=== PATIENT | female | born 1950 | race Caucasian/White ===

== ENCOUNTER 2019-04-07 15:31 | Emergency (ER) | payer OTHER ==
--- OUTSIDE RECORDS SUMMARY | 2019-04-07 15:33 | XMS REPORT ---
:1950 Author Organization [facility] Address [address] [place] [address] [address] [place] [address] Care Team Providers Name Role Phone Unavailable Unavailable Unavailable Problems This patient has no known problems. Allergies, Adverse Reactions, Alerts This patient has no known allergies or adverse reactions. Medications This patient has no known medications.
[2019-04-07] MEDS ORDERED: NA CHLORIDE 0.9% 500 ML ONE (16:20)
[2019-04-07 16:41] LABS: Hematocrit 44.4 % (36.0-45.0); Lymphocytes % 17.3 % (15.3-44.8); MPV 8.3 fL (7.6-11.3); RBC Red Blood Cell Count 5.02 M/uL (3.86-4.86)
[2019-04-07 16:58] LABS: Albumin 3.4 g/dL (3.4-5.0); Bilirubin Direct 0.1 mg/dL (0-0.2); Bilirubin Total 0.4 mg/dL (0.2-1.0); Potassium 3.9 mmol/L (3.5-5.1); Protein, Total 7.2 g/dL (6.4-8.2)
[2019-04-07] MEDS ORDERED: FLEET ENEMA ADULT PR ONE (17:10)
[2019-04-07] MEDS ORDERED: MAGNESIUM CITRATE 300 ML BOT ONE (17:10)
--- NOTE | 2019-04-07 17:20 | ER ---
Nurse's Notes [facility] Name: Griselda Barksdale Age: 68 yrs Sex: Female : 1950 Arrival Date: 04/07/2019 Time: 15:32 Bed 25 Private MD: Diagnosis: Constipation Presentation: 04/07 15:35 Presenting complaint: Patient states: I feel very constipated, last BM was yesterday la1 and normal. Transition of care: patient was not received from another setting of care. Onset of symptoms was April 07, 2019. Risk Assessment: Do you want to hurt yourself or someone else? Patient reports no desire to harm self or others. Initial Sepsis Screen: Does the patient meet any 2 criteria? No. Patient's initial sepsis screen is negative. Does the patient have a suspected source of infection? No. Patient's initial sepsis screen is negative. Care prior to arrival: None. 15:35 Method Of Arrival: Ambulatory la1 15:35 Acuity: FILEMON 3 la1 Historical: - Allergies: 15:36 No Known Allergies; la1 - PMHx: 15:36 Hyperlipidemia; Hypertension; la1 - Immunization history:: Adult Immunizations up to date. - Social history:: Smoking status: Patient uses tobacco products, smokes one-half pack cigarettes per day. - Ebola Screening: : No symptoms or risks identified at this time. Screenin:50 Abuse screen: Denies threats or abuse. Denies injuries from another. Nutritional ca1 screening: No deficits noted. Tuberculosis screening: No symptoms or risk factors identified. Fall Risk IV access (20 points). Assessment: 15:50 General: Appears in no apparent distress. comfortable, Behavior is calm, cooperative, ca1 appropriate for age. Pain: Denies pain. Neuro: Level of Consciousness is awake, alert, obeys commands, Oriented to person, place, time, situation. Cardiovascular: Heart tones S1 S2 present Capillary refill < 3 seconds Patient's skin is warm and dry. Pulses are all present. Respiratory: Airway is patent Respiratory effort is even, unlabored, Respiratory pattern is regular, Breath sounds are clear bilaterally. GI: Abdomen is round non-distended, Bowel sounds present X 4 quads. Abd is soft and non tender X 4 quads. Reports constipation, since today. She reported a normal bowel movement yesterday feeling of discomfort at her anus, "like something is stuck in there", as stated by pt. : No deficits noted. No signs and/or symptoms were reported regarding the genitourinary system. EENT: No deficits noted. No signs and/or symptoms were reported regarding the EENT system. Derm: Skin is intact, is healthy with good turgor, Skin is pink, warm \\T\\ dry. Musculoskeletal: Circulation, motion, and sensation intact. Capillary refill < 3 seconds, Range of motion: intact in all extremities. 17:19 Reassessment: Patient appears in no apparent distress at this time. Patient is alert, ca1 oriented x 3, equal unlabored respirations, skin warm/dry/pink. pt reported a "big bowel movement and I feel relieved". Notified provider. Vital Signs: 15:36 BP 162 / 74; Pulse 89; Resp 16; Temp 97.4; Pulse Ox 98% on R/A; Weight 103.87 kg; la1 Height 5 ft. 8 in. (172.72 cm); 17:19 BP 163 / 89; Pulse 79; Resp 16 S; Pulse Ox 100% ; ca1 15:36 Body Mass Index 34.82 (103.87 kg, 172.72 cm) la1 ED Course: 15:32 Patient arrived in ED. as 15:36 Triage completed. la1 15:36 Arm band placed on left wrist. la1 15:39 Matti Richards PA is PHCP. cp 15:39 Matti Israel MD is Attending Physician. cp 15:41 Lexus Mai, DIANE is Primary Nurse. ca1 15:50 Patient has correct armband on for positive identification. Placed in gown. Bed in low ca1 position. Call light in reach. Side rails up X 1. Pulse ox on. NIBP on. Warm blanket given. 16:24 Initial lab(s) drawn, by me, sent to lab. Inserted saline lock: 20 gauge in left lt1 antecubital area, using aseptic technique. 16:48 X-ray completed. Patient tolerated procedure well. Patient moved back from radiology. [facility] 16:49 XRAY Abdomen Acute Series In Process Unspecified. EDMS 17:44 No provider procedures requiring assistance completed. IV discontinued, intact, ca1 bleeding controlled, No redness/swelling at site. Pressure dressing applied. Administered Medications: 16:23 Drug: NS 0.9% 500 ml Route: IV; Rate: bolus; Site: left antecubital; ca1 17:00 Follow up: Response: No adverse reaction; IV Status: Completed infusion; IV Intake: ca1 500ml 17:15 Drug: Magnesium Citrate Liquid 300 ml Route: PO; ca1 17:23 Follow up: Response: No adverse reaction; Marked relief of symptoms ca1 17:15 Drug: Fleet Enema 133 ml Route: GA; ca1 17:23 Follow up: Response: No adverse reaction; Marked relief of symptoms ca1 Intake: 17:00 IV: 500ml; Total: 500ml. ca1 Outcome: 17:20 Discharge ordered by MD. cp 17:44 Discharged to home ambulatory. ca1 17:44 Condition: stable 17:44 Discharge instructions given to patient, Instructed on discharge instructions, follow up and referral plans. medication usage, Demonstrated understanding of instructions, follow-up care, medications, Prescriptions given X 1. 17:44 Patient left the ED. ca1 Signatures: Dispatcher [employer] EDMS Mary Connell mh1 Pricila Wild Lee RN RN la1 Matti Richards PA PA cp Acob, Cheryl, RN RN ca1 Savannah Ballesteros lt1 Corrections: (The following items were deleted from the chart) 18:35 17:19 Pulse 79bpm; Resp 16bpm; Spontaneous; Pulse Ox 100%; ca1 ca1
--- NOTE | 2019-04-07 17:20 | EDPHYS ---
Physician Documentation [facility] Name: Griselda Barksdale Age: 68 yrs Sex: Female : 1950 Arrival Date: 04/07/2019 Time: 15:32 Bed 25 Private MD: ED Physician Matti Israel HPI: 04/07 16:10 This 68 yrs old Female presents to ER via Ambulatory with complaints of cp Constipation. 16:10 The patient presents with constipation. cp 16:10 Onset: The symptoms/episode began/occurred today. Associated signs and symptoms: cp Pertinent positives: constipation, Pertinent negatives: nausea and vomiting, blood in stools, chest pain, diarrhea, dysuria, fever, abdominal pain. Patient reports she did have a bowel movement yesterday. Historical: - Allergies: 15:36 No Known Allergies; la1 - PMHx: 15:36 Hyperlipidemia; Hypertension; la1 - Immunization history:: Adult Immunizations up to date. - Social history:: Smoking status: Patient uses tobacco products, smokes one-half pack cigarettes per day. - Ebola Screening: : No symptoms or risks identified at this time. ROS: 16:20 Constitutional: Negative for body aches, chills, fever, poor PO intake. cp 16:20 Eyes: Negative for injury, pain, redness, and discharge. cp 16:20 ENT: Negative for drainage from ear(s), ear pain, sore throat, difficulty swallowing, difficulty handling secretions. 16:20 Cardiovascular: Negative for chest pain, palpitations. 16:20 Respiratory: Negative for cough, shortness of breath, wheezing. 16:20 Abdomen/GI: Positive for constipation, Negative for abdominal pain, vomiting, diarrhea, anorexia, black/tarry stool, rectal bleeding. 16:20 Back: Negative for pain at rest, pain with movement. 16:20 : Negative for urinary symptoms. 16:20 Skin: Negative for rash. 16:20 Neuro: Negative for altered mental status, headache, weakness. 16:20 All other systems are negative. Exam: 16:30 Constitutional: The patient appears in no acute distress, alert, awake, cp non-diaphoretic, non-toxic, well developed, well nourished, uncomfortable. 16:30 Head/Face: Normocephalic, atraumatic. cp 16:30 Eyes: Periorbital structures: appear normal, Conjunctiva: normal, no exudate, no injection, Sclera: no appreciated abnormality, Lids and lashes: appear normal, bilaterally. 16:30 ENT: External ear(s): are unremarkable, Nose: is normal, Posterior pharynx: is normal, airway is patent, no erythema, no exudate. 16:30 Chest/axilla: Inspection: normal. 16:30 Cardiovascular: Rate: normal, Edema: is not appreciated, JVD: is not appreciated. 16:30 Respiratory: the patient does not display signs of respiratory distress, Respirations: normal, no use of accessory muscles, no retractions, no splinting, no tachypnea, labored breathing, is not present, Breath sounds: are clear throughout, no decreased breath sounds, no stridor, no wheezing. 16:30 Abdomen/GI: Inspection: abdomen appears normal, Bowel sounds: active, all quadrants, Palpation: abdomen is soft and non-tender, in all quadrants, involuntary guarding, is not appreciated. 16:30 Back: pain, is absent, ROM is normal. Vital Signs: 15:36 BP 162 / 74; Pulse 89; Resp 16; Temp 97.4; Pulse Ox 98% on R/A; Weight 103.87 kg; la1 Height 5 ft. 8 in. (172.72 cm); 17:19 BP 163 / 89; Pulse 79; Resp 16 S; Pulse Ox 100% ; ca1 15:36 Body Mass Index 34.82 (103.87 kg, 172.72 cm) la1 MDM: 15:48 Patient medically screened. carmita 17:00 Differential diagnosis: bowel obstruction, constipation, fecal impaction. cp 17:20 Data reviewed: vital signs, nurses notes, lab test result(s), radiologic studies, plain cp films. 17:20 Test interpretation: by ED physician or midlevel provider: plain radiologic studies. cp Counseling: I had a detailed discussion with the patient and/or guardian regarding: the historical points, exam findings, and any diagnostic results supporting the discharge/admit diagnosis, lab results, radiology results, to return to the emergency department if symptoms worsen or persist or if there are any questions or concerns that arise at home. Response to treatment: the patient's symptoms have markedly improved after treatment. 17:20 ED course: VSS. Patient with large bowel movement in ED after administration of enema. cp Will discharge to home for continued monitoring. 04/07 16:08 Order name: Basic Metabolic Panel; Complete Time: 17:04 04/07 17:04 Interpretation: Normal except: CL 110; GLUC 153; CRE 1.31; GFR 41. 04/07 16:08 Order name: CBC with Diff; Complete Time: 16:50 cp 04/07 16:50 Interpretation: Normal except: RBC 5.02; RDW 15.9. 04/07 16:08 Order name: XRAY Abdomen Acute Series; Complete Time: 17:31 cp 04/07 17:32 Interpretation: Report reviewed. 04/07 16:08 Order name: Creatinine for Radiology; Complete Time: 17:04 04/07 16:08 Order name: Hepatic Function; Complete Time: 17:04 04/07 17:04 Interpretation: Normal except: GLOB 3.8; A/G 0.9. 04/07 16:08 Order name: IV Saline Lock; Complete Time: 16:24 04/07 16:08 Order name: Labs collected and sent; Complete Time: 16:24 cp Administered Medications: 16:23 Drug: NS 0.9% 500 ml Route: IV; Rate: bolus; Site: left antecubital; ca1 17:00 Follow up: Response: No adverse reaction; IV Status: Completed infusion; IV Intake: ca1 500ml 17:15 Drug: Magnesium Citrate Liquid 300 ml Route: PO; ca1 17:23 Follow up: Response: No adverse reaction; Marked relief of symptoms ca1 17:15 Drug: Fleet Enema 133 ml Route: [place]; ca1 17:23 Follow up: Response: No adverse reaction; Marked relief of symptoms ca1 Disposition: 04/08 07:15 Co-signature as Attending Physician, Matti Israel MD I agree with the assessment and carmita plan of care. Disposition: 04/07/19 17:20 Discharged to Home. Impression: Constipation. - Condition is Stable. - Discharge Instructions: Constipation, Adult. - Prescriptions for Miralax 17 gram/dose Oral - take 1 packet by ORAL route once daily dilute powder in 8 ounces of water or juice; 30 packet. - Medication Reconciliation Form, Thank You Letter, Antibiotic Education, Prescription Opioid Use form. - Follow up: Private Physician; When: 1 - 2 days; Reason: Worsening of condition. - Problem is new. - Symptoms have improved. Signatures: Dispatcher [employer] EDMatti Salgado MD MD cha Attema, Lee RN RN la1 Matti Richards PA PA cp Acob, Cheryl RN RN ca1 Corrections: (The following items were deleted from the chart) 04/07 17:44 17:20 04/07/2019 17:20 Discharged to Home. Impression: Constipation. Condition is ca1 Stable. Forms are Medication Reconciliation Form, Thank You Letter, Antibiotic Education, Prescription Opioid Use. Follow up: Private Physician; When: 1 - 2 days; Reason: Worsening of condition. Problem is new. Symptoms have improved. cp
--- NOTE | 2019-04-07 17:28 | RAD REPORT ---
EXAM DESCRIPTION: RAD - Abdomen Acute Series - 04/07/2019 4:49 pm CLINICAL HISTORY: CONSTIPATION COMPARISON: <Comparisons> FINDINGS: The lungs appear clear. No subdiaphragmatic free air seen. The heart is normal in size. No bowel obstruction seen. No pathologic calcifications present. There is a large amount of stool in the colon. IMPRESSION: Significant constipation.
== END 2019-04-07 17:44 | disposition home or self-care (01) ==
LOC: ER 15:31
DX: K59.00 Constipation, unspecified (principal); I10 Essential (primary) hypertension; F17.210 Nicotine dependence, cigarettes, uncomplicated
CPT/HCPCS: 36415; 74022; 80048; 80076; 85025; 96360; 99284

== ENCOUNTER 2021-05-09 11:04 | Emergency (ER) | payer OTHER ==
[2021-05-09 12:33] LABS: Absolute Lymphocytes (CBC) 0.8 K/uL (0.7-4.9); Basophils % 1.3 % (0-1.3); Hematocrit 43.3 % (36.0-45.0); Lymphocytes % 16.3 % (15.3-44.8); MPV 7.2 fL (7.6-11.3); RBC Red Blood Cell Count 4.93 M/uL (3.86-4.86)
[2021-05-09 14:14] LABS: BUN Blood Urea Nitrogen 8 mg/dL (7-18); Bicarbonate 25 mmol/L (21-32); Glucose Level 139 mg/dL (74-106); Potassium 3.6 mmol/L (3.5-5.1); Sodium Level 139 mmol/L (136-145); Troponin (Emerg Dept Use Only) < 0.02 ng/mL (0.0-0.045)
--- NOTE | 2021-05-09 14:23 | RAD REPORT ---
EXAM DESCRIPTION: RAD - Chest Single View - 05/09/2021 1:01 pm CLINICAL HISTORY: back pain Chest pain. COMPARISON: Abdomen Acute Series dated 04/07/2019; Chest Pa And Lat (2 Views) dated 01/19/2019; Chest S amanda View dated 07/27/2017 FINDINGS: Portable technique limits examination quality. The lungs are grossly clear. The heart is normal in size. No displaced fractures. IMPRESSION: No acute intrathoracic process suspected.
--- NOTE | 2021-05-09 14:40 | ER ---
Nurse's Notes [facility] Name: Griselda Barksdale Age: 70 yrs Sex: Female : 1950 Arrival Date: 05/09/2021 Time: 11:06 Bed 30 Private MD: Diagnosis: upper back pain;Essential (primary) hypertension Presentation: 05/09 11:08 Chief complaint: Patient states: "I am having some back pain and my blood pressure jd3 machine at home is reading very high.". Coronavirus screen: At this time, the client does not indicate any symptoms associated with coronavirus-19. Ebola Screen: Patient negative for fever greater than or equal to 101.5 degrees Fahrenheit, and additional compatible Ebola Virus Disease symptoms. Initial Sepsis Screen: Does the patient meet any 2 criteria? No. Patient's initial sepsis screen is negative. Does the patient have a suspected source of infection? No. Patient's initial sepsis screen is negative. Risk Assessment: Do you want to hurt yourself or someone else? Patient reports no desire to harm self or others. Onset of symptoms was May 08, 2021. 11:08 Method Of Arrival: Ambulatory jd3 11:08 Acuity: FILEMON 3 jd3 Triage Assessment: 11:23 General: Appears in no apparent distress. comfortable, Behavior is calm, cooperative, kh1 appropriate for age. Pain: Complains of pain in back Pain does not radiate. Pain currently is 6 out of 10 on a pain scale. Quality of pain is described as gas. Neuro: No deficits noted. Level of Consciousness is awake, alert, obeys commands, Oriented to person, time, situation, Biochemistry Professor are equal bilaterally Moves all extremities. Gait is steady, Speech is normal, Facial symmetry appears normal, Reports. Cardiovascular: No deficits noted. Reports back pain Denies chest pain, lightheadedness, nausea, shortness of breath, vomiting. Musculoskeletal: No deficits noted. Capillary refill < 3 seconds, Reports pain in back Denies. Historical: - Allergies: 11:09 No Known Allergies; jd3 - Home Meds: 11:09 levothyroxine oral [Active]; losartan oral [Active]; jd3 - PMHx: 11:09 Hyperlipidemia; Hypertension; jd3 - PSHx: 11:09 None; jd3 - Immunization history:: Adult Immunizations up to date, Client reports receiving the 2nd dose of the Covid vaccine, Date received: March 29, 2021. - Social history:: Smoking status: Patient reports the use of cigarette tobacco products, denies chronic smoking, but will smoke occasionally. Screenin:26 Abuse screen: Denies threats or abuse. Nutritional screening: No deficits noted. kh1 Tuberculosis screening: No symptoms or risk factors identified. Fall Risk None identified. Assessment: 11:26 Neuro: No deficits noted. Level of Consciousness is obeys commands, Oriented to person, kh1 place, time, situation, Gait is steady, Speech is normal. 12:30 Reassessment: Patient appears in no apparent distress at this time. No changes from [facility] previously documented assessment. Patient and/or family updated on plan of care and expected duration. Pain level reassessed. Patient is alert, oriented x 3, equal unlabored respirations, skin warm/dry/pink. 13:56 Reassessment: Patient appears in no apparent distress at this time. No changes from [facility] previously documented assessment. Patient and/or family updated on plan of care and expected duration. Pain level reassessed. Patient is alert, oriented x 3, equal unlabored respirations, skin warm/dry/pink. Vital Signs: 11:10 BP 152 / 90; Pulse 87; Resp 16 S; Temp 97.7(TE); Pulse Ox 100% on R/A; Weight 90.72 kg jd3 (R); Height 5 ft. 8 in. (172.72 cm) (R); Pain 5/10; 11:35 BP 129 / 70; Pulse 89; Resp 15 S; Temp 96.3; Pulse Ox 99% on R/A; kh1 13:10 BP 160 / 70; Pulse 71; Resp 16 S; Pulse Ox 99% on R/A; kh1 11:10 Body Mass Index 30.41 (90.72 kg, 172.72 cm) jd3 ED Course: 11:06 Patient arrived in ED. as 11:09 Triage completed. jd3 11:10 Arm band placed on. jd3 11:19 [facility] kb 11:19 Joaquin Resendiz MD is Attending Physician. kb 11:22 Kamla Brito is Primary Nurse. kh1 11:26 Patient has correct armband on for positive identification. Bed in low position. Call kh light in reach. Side rails up X2. laboratory monitor on. Pulse ox on. NIBP on. 11:27 No provider procedures requiring assistance completed. kh1 12:07 Troponin (emerg Dept Use Only) Sent. kh1 12:07 Basic Metabolic Panel Sent. kh1 12:07 CBC with Diff Sent. kh1 13:01 Chest Single View XRAY In Process Unspecified. EDMS 15:00 IV discontinued, intact, bleeding controlled, No redness/swelling at site. Pressure kh1 dressing applied. Administered Medications: 14:46 Drug: HYDROcodone-acetaminophen 5 mg-325 mg 1 tabs Route: PO; [facility] Outcome: 14:40 Discharge ordered by . delroy 15:00 Discharged to home ambulatory. kh1 15:00 Condition: stable 15:00 Discharge instructions given to patient, Instructed on discharge instructions, follow up and referral plans. medication usage, Demonstrated understanding of instructions, follow-up care, medications, Prescriptions given X 1. 15:13 Patient left the ED. 1 Signatures: Dispatcher [employer] EDID Elaine An, BOOKKEEPER RECEPTIONIST-Raffi GIL-Pricila Zambrano Jonathon RN RN Kamla Larson [facility]
--- NOTE | 2021-05-09 14:40 | EDPHYS ---
Physician Documentation [facility] Name: Griselda Barksdale Age: 70 yrs Sex: Female : 1950 Arrival Date: 05/09/2021 Time: 11:06 Bed 30 Private MD: ED Physician Joaquin Resendiz HPI: 05/09 15:27 This 70 yrs old Female presents to ER via Ambulatory with complaints of Back kb Pain. 15:27 The patient presents with pain that is acute, with no known mechanism of injury. The kb symptoms are located in the thoracic area. Onset: The symptoms/episode began/occurred 3 day(s) ago. The pain radiates to the epigastric area. Associated signs and symptoms: The patient has no apparent associated signs or symptoms. The problem was sustained without known cause. Modifying factors: The patient symptoms are alleviated by nothing, the patient symptoms are aggravated by nothing. Severity of symptoms: At their worst the symptoms were mild, moderate, in the emergency department the symptoms are unchanged. The patient has not experienced similar symptoms in the past. The patient has not recently seen a physician. Pt reports pain to middle of back that radiates to front (epigastric area) that started a few days ago. Came in today because bp was elevated. Historical: - Allergies: 11:09 No Known Allergies; jd3 - Home Meds: 11:09 levothyroxine oral [Active]; losartan oral [Active]; jd3 - PMHx: 11:09 Hyperlipidemia; Hypertension; jd3 - PSHx: 11:09 None; jd3 - Immunization history:: Adult Immunizations up to date, Client reports receiving the 2nd dose of the Covid vaccine, Date received: March 29, 2021. - Social history:: Smoking status: Patient reports the use of cigarette tobacco products, denies chronic smoking, but will smoke occasionally. ROS: 15:18 Constitutional: Negative for fever, chills, and weight loss. kb 15:18 Back: Positive for pain at rest, of the thoracic area. 15:18 All other systems are negative. Exam: 15:20 Constitutional: This is a well developed, well nourished patient who is awake, alert, kb and in no acute distress. Head/Face: Normocephalic, atraumatic. ENT: Moist Mucous membranes Cardiovascular: Regular rate and rhythm with a normal S1 and S2. No gallops, murmurs, or rubs. No pulse deficits. Respiratory: Respirations even and unlabored. No increased work of breathing, no retractions or nasal flaring. Back: No spinal tenderness. No costovertebral tenderness. Full range of motion. Skin: Warm, dry with normal turgor. Normal color. MS/ Extremity: Pulses equal, no cyanosis. Neurovascular intact. Full, normal range of motion. Neuro: Awake and alert, GCS 15, oriented to person, place, time, and situation. Moves all extremities. Normal gait. Psych: Awake, alert, with orientation to person, place and time. Behavior, mood, and affect are within normal limits. 15:29 Neuro: Exam negative for acute changes. kb Vital Signs: 11:10 BP 152 / 90; Pulse 87; Resp 16 S; Temp 97.7(TE); Pulse Ox 100% on R/A; Weight 90.72 kg jd3 (R); Height 5 ft. 8 in. (172.72 cm) (R); Pain 5/10; 11:35 BP 129 / 70; Pulse 89; Resp 15 S; Temp 96.3; Pulse Ox 99% on R/A; kh1 13:10 BP 160 / 70; Pulse 71; Resp 16 S; Pulse Ox 99% on R/A; kh1 11:10 Body Mass Index 30.41 (90.72 kg, 172.72 cm) jd3 MDM: 11:19 Patient medically screened. kb 15:17 Data reviewed: vital signs, nurses notes. Data interpreted: Pulse oximetry: on room air kb is 99 %. Interpretation: normal. Counseling: I had a detailed discussion with the patient and/or guardian regarding: the historical points, exam findings, and any diagnostic results supporting the discharge/admit diagnosis, lab results, radiology results, the need for outpatient follow up, a family practitioner, to return to the emergency department if symptoms worsen or persist or if there are any questions or concerns that arise at home. 05/09 11:41 Order name: CBC with Diff; Complete Time: 12:38 kb 05/09 11:41 Order name: Basic Metabolic Panel; Complete Time: 14:17 kb 05/09 11:41 Order name: Troponin (emerg Dept Use Only); Complete Time: 14:17 kb 05/09 11:41 Order name: EKG; Complete Time: 11:41 kb 05/09 11:41 Order name: Chest Single View XRAY; Complete Time: 14:24 kb 05/09 11:41 Order name: EKG - Nurse/Tech; Complete Time: 12:24 kb 05/09 11:41 Order name: IV Start; Complete Time: 12:07 kb Administered Medications: 14:46 Drug: HYDROcodone-acetaminophen 5 mg-325 mg 1 tabs Route: PO; kh1 Disposition: 17:07 Co-signature as Attending Physician, Joaquin Resendiz MD I agree with the assessment and kdr plan of care. Disposition Summary: 05/09/21 14:40 Discharge Ordered Location: Home kb Condition: Stable kb Diagnosis - upper back pain kb - Essential (primary) hypertension kb Followup: kb - With: Emergency Department - When: As needed - Reason: Worsening of condition Followup: kb - With: Private Physician - When: 2 - 3 days - Reason: Recheck today's complaints, Continuance of care, Re-evaluation by your physician Discharge Instructions: - Discharge Summary Sheet kb - Hypertension, Adult, [id number] kb Forms: - Medication Reconciliation Form kb - Thank You Letter kb - Antibiotic Education kb - Prescription Opioid Use kb Prescriptions: - Diclofenac Sodium 75 mg Oral tablet,delayed release (DR/EC) - take 1 tablet by ORAL route 2 times per day As needed; 30 tablet; Refills: 0, kb Product Selection Permitted Signatures: Dispatcher [employer] Elaine Peters, LOUISE-C LOUISE-Joaquin Ni MD MD kdr Davies, Jonathon, RN RN Kamla Larson [facility]
[2021-05-09] MEDS ORDERED: HYDROCODONE/APAP 5/325 MG TAB ONE (15:08)
[2021-05-09 15:21] VITALS: TEMP 96.3; O2SAT 99
[2021-05-09 15:22] VITALS: BP 160/70
== END 2021-05-09 15:13 | disposition home or self-care (01) ==
LOC: ER 11:04
DX: I10 Essential (primary) hypertension (principal); F17.210 Nicotine dependence, cigarettes, uncomplicated; E78.5 Hyperlipidemia, unspecified
CPT/HCPCS: 36415; 71045; 80048; 84484; 85025; 93005; 99284

== ENCOUNTER 2022-08-01 09:38 | Emergency (ER) | payer OTHER ==
--- OUTSIDE RECORDS SUMMARY | 2022-08-01 09:41 | XMS REPORT | Continuity of Care Document ---
:1950 Author Organization [facility] t Address [address] [place] [address] Dr. Curtis [address] [place] [id number] Care Team Providers Name Role Phone Unavailable Unavailable Unavailable Problems This patient has no known problems. Allergies, Adverse Reactions, Alerts This patient has no known allergies or adverse reactions. Medications This patient has no known medications. Procedures This patient has no known procedures. Results This patient has no known results.
[2022-08-01] MEDS ORDERED: AMLODIPINE 5 MG TAB ONE (10:40)
[2022-08-01 12:25] LABS: Absolute Lymphocytes (CBC) 0.7 K/uL (0.7-4.9); Hematocrit 45.2 % (36.0-45.0); Lymphocytes % 9.8 % (15.3-44.8); MCV 87.7 fL (80-100); RBC Red Blood Cell Count 5.15 M/uL (3.86-4.86)
[2022-08-01 12:47] LABS: Albumin 3.7 g/dL (3.4-5.0); Bilirubin Total 0.5 mg/dL (0.2-1.0); Potassium 5.3 mmol/L (3.5-5.1); Protein, Total 7.8 g/dL (6.4-8.2); Troponin High Sensitivity 5.5 pg/mL (<58.9)
--- NOTE | 2022-08-01 13:01 | EDPHYS ---
Physician Documentation [facility] Name: Griselda Barksdale Age: 71 yrs Sex: Female : 1950 Arrival Date: 08/01/2022 Time: 09:40 Bed 11 Private MD: ED Physician Anshu Reyes HPI: 08/01 10:53 This 71 yrs old Female presents to ER via Ambulatory with complaints of High Blood rt Pressure, Dizziness. 10:53 Onset: The symptoms/episode began/occurred gradually, at an unknown time. Modifying rt factors: The symptoms are aggravated by activity. Associated signs and symptoms: Pertinent positives: dizziness, Pertinent negatives: chest pain, dyspnea, headache, nausea, visual changes. Severity of symptoms: At its worst the blood pressure was moderate. Patient presents to the ED with a dizziness, described as lightheadedness. She checked her blood pressure and noted that was high. She reports compliance with her losartan. Denies other acute complaints at this time. Symptoms are moderate severity, no other aggravating leaving factors.. Historical: - Allergies: 10:05 No Known Allergies; jl7 - Home Meds: 10:05 losartan Oral [Active]; levothyroxine oral [Active]; rosuvastatin 40 mg oral cpSP 1 cap jl7 once daily [Active]; - PMHx: 10:05 Hyperlipidemia; Hypertension; Hypothyroidism; jl7 - PSHx: 10:05 Ligation of fallopian tube; jl7 - Immunization history:: Client reports receiving the 2nd dose of the Covid vaccine. - Social history:: Smoking status: Patient reports the use of cigarette tobacco products, smokes one pack cigarettes per day. - Family history:: not pertinent. ROS: 10:53 Constitutional: Negative for fever, chills, and weight loss, Eyes: Negative for injury, rt pain, redness, and discharge, ENT: Negative for injury, pain, and discharge, Neck: Negative for injury, pain, and swelling, Cardiovascular: Negative for chest pain, palpitations, and edema, Respiratory: Negative for shortness of breath, cough, wheezing, and pleuritic chest pain, Abdomen/GI: Negative for abdominal pain, nausea, vomiting, diarrhea, and constipation, MS/Extremity: Negative for injury and deformity, Skin: Negative for injury, rash, and discoloration, Psych: Negative for depression, anxiety, suicide ideation, homicidal ideation, and hallucinations. 10:53 Neuro: Positive for dizziness, Negative for altered mental status. Exam: 10:53 Constitutional: This is a well developed, well nourished patient who is awake, alert, rt and in no acute distress. Head/Face: Normocephalic, atraumatic. Eyes: Pupils equal round and reactive to light, extra-ocular motions intact. Lids and lashes normal. Conjunctiva and sclera are non-icteric and not injected. Cornea within normal limits. Periorbital areas with no swelling, redness, or edema. ENT: Nares patent. No nasal discharge, no septal abnormalities noted. Tympanic membranes are normal and external auditory canals are clear. Oropharynx with no redness, swelling, or masses, exudates, or evidence of obstruction, uvula midline. Mucous membranes moist. Chest/axilla: Normal chest wall appearance and motion. Nontender with no deformity. No lesions are appreciated. Cardiovascular: Regular rate and rhythm with a normal S1 and S2. No gallops, murmurs, or rubs. Normal PMI, no JVD. No pulse deficits. Respiratory: Lungs have equal breath sounds bilaterally, clear to auscultation and percussion. No rales, rhonchi or wheezes noted. No increased work of breathing, no retractions or nasal flaring. Skin: Warm, dry with normal turgor. Normal color with no rashes, no lesions, and no evidence of cellulitis. MS/ Extremity: Pulses equal, no cyanosis. Neurovascular intact. Full, normal range of motion. Neuro: Awake and alert, GCS 15, oriented to person, place, time, and situation. Cranial nerves II-XII grossly intact. Motor strength 5/5 in all extremities. Sensory grossly intact. Cerebellar exam normal. Normal gait. Psych: Awake, alert, with orientation to person, place and time. Behavior, mood, and affect are within normal limits. 10:53 ECG was reviewed by the Attending Physician. Vital Signs: 10:01 BP 183 / 76; Pulse 84; Resp 17; Temp 97.5(O); Pulse Ox 100% ; Weight 95.71 kg; Height 5 jl7 ft. 9 in. (175.26 cm); Pain 0/10; 11:45 BP 168 / 86; Pulse 85; Resp 17; Pulse Ox 100% ; jl7 10:01 Body Mass Index 31.16 (95.71 kg, 175.26 cm) jl7 MDM: 10:13 Patient medically screened. rt 13:43 Differential diagnosis: hypertensive crisis, ACS, KELSIE. Data reviewed: vital signs, rt nurses notes, old medical records. ED course: Presents to the ED with reported dizziness that has resolved in the ED. She does report hypertension, nonsevere levels. The EKG shows no acute ischemic changes. Labs are benign. Patient has no evidence of endorgan dysfunction. She is stable for outpatient care, return precautions discussed. 08/01 10:20 Order name: CBC with Diff; Complete Time: 12:50 rt 08/01 10:20 Order name: CMP; Complete Time: 12:50 rt 08/01 10:20 Order name: Troponin High Sensitivity; Complete Time: 12:50 rt 08/01 11:10 Order name: Labs - recollect needed: recollect cbc and chem/ hemolyzed; Complete Time: eb 12:31 EC:53 Rate is 82 beats/min. Rhythm is regular, Normal Sinus Rhythm with No ectopy. QRS [place] rt is Normal. DE interval is normal. QRS interval is normal. QT interval is normal. No Q waves. T waves are Normal. Clinical impression: NSR w/ Non-specific ST/T Changes. Administered Medications: 11:00 Drug: amLODIPine 5 mg Route: PO; 7 11:45 Follow up: Response: No adverse reaction; Blood pressure is lowered jl7 Disposition Summary: 08/01/22 13:01 Discharge Ordered Location: Home rt Problem: chronic rt Symptoms: have improved rt Condition: Stable rt Diagnosis - Essential (primary) hypertension rt Followup: rt - With: Private Physician - When: 2 - 3 days - Reason: Discharge Instructions: - Discharge Summary Sheet rt - Hypertension, Adult, [id number] rt Forms: - Medication Reconciliation Form rt - Thank You Letter rt - Antibiotic Education rt - Prescription Opioid Use rt Prescriptions: - Norvasc 5 mg Oral Tablet - take 1 tablet by ORAL route once daily; 20 tablet; Refills: 0, Product rt Selection Permitted Signatures: Dispatcher [employer] Ramesh Rivero RN RN jl7 Christina Cotto Ryan, MD MD rt
--- NOTE | 2022-08-01 13:01 | ER ---
Nurse's Notes [facility] Name: Griselda Barksdale Age: 71 yrs Sex: Female : 1950 Arrival Date: 08/01/2022 Time: 09:40 Bed 11 Private MD: Diagnosis: Essential (primary) hypertension Presentation: 08/01 10:01 Chief complaint: Patient states: Went to bed at 2130 and woke at 0600 with dizziness, jl7 BP 175/102 at home, denies weakness. Coronavirus screen: At this time, the client does not indicate any symptoms associated with coronavirus-19. Ebola Screen: No symptoms or risks identified at this time. Initial Sepsis Screen: Does the patient meet any 2 criteria? No. Patient's initial sepsis screen is negative. Does the patient have a suspected source of infection? No. Patient's initial sepsis screen is negative. Risk Assessment: Do you want to hurt yourself or someone else? Patient reports no desire to harm self or others. Onset of symptoms is unknown. 10:01 Method Of Arrival: Ambulatory jl7 10:01 Acuity: FILEMON 2 jl7 Triage Assessment: 10:05 General: Appears in no apparent distress. uncomfortable, Behavior is calm, cooperative, jl7 appropriate for age. Pain: Denies pain. Neuro: Level of Consciousness is awake, alert, obeys commands, Oriented to person, place, time, situation, House Worker are equal bilaterally Moves all extremities. Full function Gait is unsteady, Speech is normal, Facial symmetry appears normal, Intact. Historical: - Allergies: 10:05 No Known Allergies; jl7 - Home Meds: 10:05 losartan Oral [Active]; levothyroxine oral [Active]; rosuvastatin 40 mg oral cpSP 1 cap jl7 once daily [Active]; - PMHx: 10:05 Hyperlipidemia; Hypertension; Hypothyroidism; jl7 - PSHx: 10:05 Ligation of fallopian tube; jl7 - Immunization history:: Client reports receiving the 2nd dose of the Covid vaccine. - Social history:: Smoking status: Patient reports the use of cigarette tobacco products, smokes one pack cigarettes per day. - Family history:: not pertinent. Screenin:06 VAN Screening: Arm Drift: Patient shows no arm weakness. Patient is VAN negative. jl7 10:30 [facility] ED Fall Risk Assessment (Adult) History of falling in the last 3 months, jl7 including since admission No falls in past 3 months (0 pts) Confusion or Disorientation No (0 pts) Intoxicated or Sedated No (0 pts) Impaired Gait No (0 pts) Mobility Assist Device Used No (0 pt) Altered Elimination No (0 pt) Score/Fall Risk Level 0 - 2 = Low Risk Oriented to surroundings, Maintained a safe environment, Educated pt \T\ family on fall prevention, incl call for assistance when getting out of bed. Humpty Dumpty Scale Fall Assessment Tool (age< 18yrs) Gender Female (1 pt). Abuse screen: Denies threats or abuse. Denies injuries from another. Nutritional screening: No deficits noted. Tuberculosis screening: No symptoms or risk factors identified. Fall Risk No fall in past 12 months (0 pts). No secondary diagnosis (0 pts). No IV (0 pts). Ambulatory Aid- None/Bed Rest/Nurse Assist (0 pts). Gait- Normal/Bed Rest/Wheelchair (0 pts) Mental Status- Oriented to own ability (0 pts). Total Martino Fall Scale indicates No Risk (0-24 pts). Assessment: 12:00 Reassessment: Patient appears in no apparent distress at this time. No changes from [facility] previously documented assessment. Patient and/or family updated on plan of care and expected duration. Pain level reassessed. Patient is alert, oriented x 3, equal unlabored respirations, skin warm/dry/pink. 13:00 Reassessment: Patient appears in no apparent distress at this time. No changes from [facility] previously documented assessment. Patient and/or family updated on plan of care and expected duration. Pain level reassessed. Patient is alert, oriented x 3, equal unlabored respirations, skin warm/dry/pink. Vital Signs: 10:01 BP 183 / 76; Pulse 84; Resp 17; Temp 97.5(O); Pulse Ox 100% ; Weight 95.71 kg; Height 5 jl7 ft. 9 in. (175.26 cm); Pain 0/10; 11:45 BP 168 / 86; Pulse 85; Resp 17; Pulse Ox 100% ; jl7 10:01 Body Mass Index 31.16 (95.71 kg, 175.26 cm) [facility] ED Course: 09:40 Patient arrived in ED. mr 09:41 Anshu Reyes MD is Attending Physician. rt 10:05 Triage completed. jl7 10:05 Arm band placed on right wrist. jl7 10:30 Patient has correct armband on for positive identification. Bed in low position. Call jl7 light in reach. Side rails up X 1. Client placed on continuous cardiac and pulse oximetry monitoring. NIBP monitoring applied. 10:34 Ramesh Deleon RN is Primary Nurse. jl7 10:56 Troponin High Sensitivity Sent. mm9 10:56 CMP Sent. mm9 10:56 CBC with Diff Sent. mm9 10:56 Initial lab(s) drawn, by mt, sent to lab. EKG done, by ED staff, reviewed by Anshu Reyes MD. 13:30 No provider procedures requiring assistance completed. Patient did not have IV access jl7 during this emergency room visit. Administered Medications: 11:00 Drug: amLODIPine 5 mg Route: PO; jl7 11:45 Follow up: Response: No adverse reaction; Blood pressure is lowered jl7 Medication: 11:45 VIS not applicable for this client. jl7 Outcome: 13:01 Discharge ordered by . rt 13:30 Discharged to home ambulatory. jl7 13:30 Condition: stable 13:30 Discharge instructions given to patient, family, Instructed on discharge instructions, follow up and referral plans. medication usage, Demonstrated understanding of instructions, follow-up care, medications, Prescriptions given X 1. 14:34 Patient left the ED. jl7 Signatures: Kwame Olivia mr Ramesh Deleon RN RN Mary Jo Salvador mm9 Anshu Reyes MD MD rt
[2022-08-01 14:38] VITALS: TEMP 97.5; O2SAT 100
[2022-08-01 14:40] VITALS: BP 168/86
== END 2022-08-01 14:34 | disposition home or self-care (01) ==
LOC: ER 09:38
DX: I10 Essential (primary) hypertension (principal); F17.210 Nicotine dependence, cigarettes, uncomplicated
CPT/HCPCS: 36415; 80053; 84484; 85025; 99284

== ENCOUNTER 2023-12-03 20:47 | Inpatient (IN) | payer OTHER ==
--- OUTSIDE RECORDS SUMMARY | 2023-12-03 20:50 | XMS REPORT | Continuity of Care Document ---
Author Name Unknown Address [address] [employer] Address [address] [place] [address] [address] [place] [address] Care Team Providers Care Faculty Member Name Role Phone Unavailable Unavailable Unavailable
[2023-12-03 21:39] LABS: Absolute Basophils 0.1 K/uL (0-0.5); Absolute Lymphocytes (CBC) 0.7 K/uL (0.7-4.9); Absolute Monocytes 0.5 K/uL (0.1-1.3); Absolute Neutrophil 10.7 K/uL (1.8-8.0); Basophils % 0.5 % (0-1.3); Eosinophils % 0.2 % (0-4.4); Hematocrit 38.1 % (36.0-45.0); Lymphocytes % 5.7 % (15.3-44.8); MCHC 34.1 g/dL (32.0-36.0); MCV 85.1 fL (80-100); MPV 7.1 fL (7.6-11.3); Monocytes % 4.4 % (3.3-12.3); Neutrophils % 89.2 % (41.7-73.7); Nucleated Red Blood Cells % 0.1 % (0-0); Platelets 260 thou/uL (152-406); RBC Red Blood Cell Count 4.48 M/uL (3.86-4.86)
[2023-12-03 22:00] LABS: ALT/SGPT 23 U/L (13-56); AST/SGOT 17 U/L (15-37); Albumin 3.5 g/dL (3.4-5.0); Albumin/Globulin Ratio 0.9 (1.1-1.8); Alkaline Phosphatase 78 U/L (45-117); BUN Blood Urea Nitrogen 7 mg/dL (7-18); Bicarbonate 27 mEq/L (21-32); Bilirubin Total 0.3 mg/dL (0.2-1.0); Globulin 3.9 g/dL (2.3-3.5); Glomerular Filtration Rate 58 ml/min (=/>90); Glucose Level 171 mg/dL (74-106); Lipase 41 U/L (13-75); NT PRO-BNP 461 pg/mL (<125); Protein, Total 7.4 g/dL (6.4-8.2); Sodium Level 123 mEq/L (136-145)
[2023-12-03 22:03] LABS: Bilirubin Direct < 0.1 mg/dL (0-0.2); Bilirubin Indirect, Calculated ND mg/dL (0.2-0.8)
[2023-12-03 22:05] LABS: Troponin High Sensitivity 211.2 pg/mL (<58.9)
[2023-12-03] MEDS ORDERED: ASPIRIN 81 MG CHEWABLE TABLET ONE (22:10)
[2023-12-03] MEDS ORDERED: ENOXAPARIN 100 MG/ML SYR SQ ONE (22:21)
--- NOTE | 2023-12-03 22:23 | RAD REPORT ---
EXAM DESCRIPTION: Donna Single View12/03/2023 10:03 pm CLINICAL HISTORY: Chest pain COMPARISON: 2020 FINDINGS: The lungs appear clear of acute infiltrate. The heart is normal size IMPRESSION: No acute abnormalities displayed
[2023-12-03 22:29] LABS: PT Prothrombin Time 10.8 SECONDS (9.5-12.5); Protime INR 0.98
--- NOTE | 2023-12-03 22:29 | ER ---
Nurse's Notes [facility] Name: Griselda Barksdale Age: 73 yrs Sex: Female : 1950 Arrival Date: 12/03/2023 Time: 20:47 Bed 17 Private MD: Diagnosis: Subsequent non-ST elevation (NSTEMI) myocardial infarction Presentation: 12/02 21:07 Chief complaint: Patient states: about an hour ago I ate stir [place] and now I have jb4 epigastric pain that is relieved by burping, radiates to my left arm and neck. Coronavirus screen: At this time, the client does not indicate any symptoms associated with coronavirus-19. Ebola Screen: No symptoms or risks identified at this time. Initial Sepsis Screen: Does the patient meet any 2 criteria? No. Patient's initial sepsis screen is negative. Does the patient have a suspected source of infection? No. Patient's initial sepsis screen is negative. Risk Assessment: Do you want to hurt yourself or someone else? Patient reports no desire to harm self or others. Onset of symptoms was December 03, 2023. Transition of care: patient was not received from another setting of care. 21:07 Method Of Arrival: Wheelchair jb4 21:07 Acuity: FILEMON 2 jb4 Triage Assessment: 21:10 General: Appears in no apparent distress. comfortable, Behavior is calm, cooperative, jb4 appropriate for age. Pain: Complains of pain in epigastric area Pain currently is 6 out of 10 on a pain scale. Quality of pain is described as pressure. Cardiovascular: Patient's skin is warm and dry. Respiratory: Airway is patent Respiratory effort is even, unlabored, Respiratory pattern is regular, symmetrical. Historical: - Allergies: 21:09 No Known Allergies; jb4 - PMHx: 21:09 Hyperlipidemia; Hypertension; Hypothyroidism; jb4 21:10 DVT left leg; jb4 - PSHx: 21:09 Ligation of fallopian tube; jb4 - Immunization history:: Adult Immunizations up to date. - Infectious Disease History:: Denies. - Social history:: Smoking status: Patient reports the use of cigarette tobacco products, 8 cigarettes per day.. Screenin:38 [facility] ED Fall Risk Assessment (Adult) History of falling in the last 3 months, tm6 including since admission No falls in past 3 months (0 pts) Confusion or Disorientation No (0 pts) Intoxicated or Sedated No (0 pts) Impaired Gait No (0 pts) Mobility Assist Device Used No (0 pt) Altered Elimination No (0 pt) Score/Fall Risk Level 0 - 2 = Low Risk Oriented to surroundings, Maintained a safe environment. Abuse screen: Denies threats or abuse. Denies injuries from another. Nutritional screening: No deficits noted. Tuberculosis screening: No symptoms or risk factors identified. Assessment: 21:34 General: Appears in no apparent distress. Behavior is calm, cooperative. Pain: tm6 Complains of pain in chest and left upper quadrant and right upper quadrant and abdomen and epigastric area Pain currently is 0 out of 10 on a pain scale. at worst was 10 out of 10 on a pain scale. Quality of pain is described as pressure, Pain began 1 hour ago. Neuro: Level of Consciousness is awake, alert, obeys commands, Oriented to person, place, time, situation. Cardiovascular: Reports chest pain, Heart tones S1 S2 Patient's skin is warm and dry. Rhythm is sinus tachycardia with unifocal PVCs Chest pain quality is pressure, radiates to left arm(s) left armpit began 1 hour prior to arrival. Respiratory: Airway is patent Respiratory effort is even, unlabored, Respiratory pattern is regular, symmetrical. GI: Reports epigastric pain, gaseousness. : No signs and/or symptoms were reported regarding the genitourinary system. EENT: No signs and/or symptoms were reported regarding the EENT system. Derm: No signs and/or symptoms reported regarding the dermatologic system. Musculoskeletal: No signs and/or symptoms reported regarding the musculoskeletal system. 23:31 Reassessment: Patient and/or family updated on plan of care and expected duration. Pain tm6 level reassessed. Patient is alert, oriented x 3, equal unlabored respirations, skin warm/dry/pink. 23:59 Reassessment: Patient appears in no apparent distress at this time. Patient and/or tm6 family updated on plan of care and expected duration. Pain level reassessed. Patient is alert, oriented x 3, equal unlabored respirations, skin warm/dry/pink. Vital Signs: 21:07 Resp 18; Weight 96.16 kg; Height 5 ft. 8 in. ; Pain 6/10; jb4 21:34 BP 162 / 83; Pulse 102; Resp 20; Pulse Ox 96% on R/A; Pain 0/10; tm6 22:50 BP 162 / 84; Pulse 158; Resp 17; Pulse Ox 97% on R/A; Pain 5/10; tm6 23:31 BP 164 / 79; Pulse 122; Resp 24; Pulse Ox 97% on R/A; tm6 23:58 BP 145 / 76; Pulse 99; Resp 20; Pulse Ox 96% on R/A; Pain 0/10; tm6 12/03 00:47 BP 141 / 83; Pulse 101; Resp 15; Temp 98.2(TE); Pulse Ox 96% on R/A; Height 5 ft. 8 in. tm6 ; Pain 0/10; 12/02 21:07 Body Mass Index 32.23 (96.16 kg, 172.72 cm) jb4 12/02 21:07 Pain Scale: Adult jb4 21:34 Pain Scale: Adult tm6 22:50 Pain Scale: Adult tm6 23:58 Pain Scale: Adult tm6 12/03 00:47 Pain Scale: Adult tm6 Vitals: 12/02 22:51 Cardiac Rhythm Assessment Atrial fibrillation W/rapid ventricular response. tm6 23:58 Cardiac Rhythm Assessment Atrial fibrillation. tm6 ED Course: 20:50 Patient arrived in ED. gm2 20:56 [facility] sb4 20:56 Neftali Guzman MD is Attending Physician. sb4 21:09 Triage completed. jb4 21:10 Arm band placed on right wrist. jb4 21:20 Evelina Asher, RN is Primary Nurse. tm6 21:21 EKG done, by ED staff, reviewed by Vidya Manuel PA-C. tm6 21:38 Patient has correct armband on for positive identification. Placed in gown. Bed in low tm6 position. Call light in reach. Side rails up X 1. Provided Education on: plan of care. Client placed on continuous cardiac and pulse oximetry monitoring. NIBP monitoring applied. hospital monitor on. Pulse ox on. NIBP on. Door closed. Noise minimized. Warm blanket given. 21:38 Initial lab(s) drawn, by ED staff, sent to lab. Inserted saline lock: 22 gauge in right tm6 antecubital area, using aseptic technique. O2 via room air. 21:39 Lipase Sent. tm6 21:39 Basic Metabolic Panel Sent. tm6 21:39 CBC with Diff Sent. tm6 21:39 LFT's Sent. tm6 21:40 Magnesium Sent. tm6 21:40 NT PRO-BNP Sent. tm6 21:40 PT-INR Sent. tm6 21:40 Troponin HS Sent. tm6 22:05 XRAY Chest (1 view) In Process Unspecified. EDMS 22:28 Ochoa Casey MD is Hospitalizing Provider. sb4 22:39 Extremity Venous Uni Ltd US In Process Unspecified. EDMS 22:50 EKG done, by ED staff, reviewed by Vidya Manuel PA-C. tm6 12/03 02:01 No provider procedures requiring assistance completed. Patient admitted, IV remains in tm6 place. Administered Medications: 12/02 22:12 Drug: Aspirin PO Chewable Tablet 324 mg PO once; 81 mg tablets x 4 Route: PO; tm6 22:23 Drug: Enoxaparin Sub-Q 1 mg/kg Sub-Q once Route: Sub-Q; Site: right lower abdomen; tm6 22:53 Not Given (Physician Discretion): diazepam5 mg IVP once sb4 23:04 Drug: Diltiazem IVP 10 mg IVP once Route: IVP; Site: right antecubital; tm6 23:05 Drug: NS 0.9% IV 1000 ml IV at 75 ml/hr continuous Route: IV; Rate: 75 ml/hr; Site: tm6 right antecubital; 23:05 Drug: Potassium PO Effervescent Tablet 50 mEq PO once; dissolve in 4 ounces of water or tm6 juice Route: PO; 23:48 Drug: Diltiazem IVP 25 mg IVP once; Over 2 Minutes Route: IVP; Site: right antecubital; tm6 23:58 Drug: Magnesium Sulfate IVPB 2 grams IVPB once over 2 hrs Route: IVPB; Infused Over: 2 tm6 hrs; Site: right antecubital; 12/03 01:22 Drug: Potassium Chloride IV 20 mEq IV at calculated rate once; administer over 1-2 tm6 hours Route: IV; Rate: calculated rate; Site: right antecubital; Medication: 12/02 21:38 VIS not applicable for this client. tm6 Outcome: 22:28 Decision to Hospitalize by Provider. sb4 12/03 02:02 Admitted to Med/surg accompanied by nurse, via wheelchair, room 209, with chart, Report tm6 called to [place] Condition: stable Instructed on the need for admit, Demonstrated understanding of instructions, 02:02 Patient left the ED. tm6 Signatures: Dispatcher [employer] EDMS Nicholas Ulloa, RN RN Vidya Nagle, PA-C PA-C sb4 Hedy Brady 2 Evelina Asher, RN RN tm6
--- NOTE | 2023-12-03 22:29 | EDPHYS ---
Physician Documentation [facility] Name: Griselda Barksdale Age: 73 yrs Sex: Female : 1950 Arrival Date: 12/03/2023 Time: 20:47 Bed 17 Private MD: ED Physician Neftali Guzman HPI: 12/02 21:19 This 73 yrs old Female presents to ER via Wheelchair with complaints of Chest Pain. sb4 21:19 Patient reports experiencing a "gas attack "after eating food this evening with sb4 pain in her chest radiating up to her armpit. States that she drank a Coke to make her burp which did help. She states that she is pain-free now, thinks that her pain is secondary to her gallbladder. Denies any cardiac issues. States her PCP told her her heart was healthy. Historical: - Allergies: 21:09 No Known Allergies; jb4 - PMHx: 21:09 Hyperlipidemia; Hypertension; Hypothyroidism; jb4 21:10 DVT left leg; jb4 - PSHx: 21:09 Ligation of fallopian tube; jb4 - Immunization history:: Adult Immunizations up to date. - Infectious Disease History:: Denies. - Social history:: Smoking status: Patient reports the use of cigarette tobacco products, 8 cigarettes per day.. ROS: 21:19 Constitutional: Negative for fever, chills, and weight loss, sb4 21:19 Cardiovascular: Positive for chest pain, 21:19 Abdomen/GI: Positive for abdominal pain, 21:19 All other systems are negative, Exam: 21:25 Head/Face: Normocephalic, atraumatic. Eyes: Extra-ocular motions intact. Periorbital sb4 areas with no swelling, redness, or edema. ENT: Mucous membranes moist. Cardiovascular: Regular rate and rhythm with a normal S1 and S2. Respiratory: Lungs have equal breath sounds bilaterally, clear to auscultation and percussion. No rales, rhonchi or wheezes noted. No increased work of breathing, no retractions or nasal flaring. 21:25 Constitutional: The patient appears in no acute distress, alert, awake, obese, 21:25 Abdomen/GI: Inspection: distension, that is mild, obese Bowel sounds: normal, Palpation: soft, mild abdominal tenderness, in the right upper quadrant and left upper quadrant, Vital Signs: 21:07 Resp 18; Weight 96.16 kg; Height 5 ft. 8 in. ; Pain 6/10; jb4 21:34 BP 162 / 83; Pulse 102; Resp 20; Pulse Ox 96% on R/A; Pain 0/10; tm6 22:50 BP 162 / 84; Pulse 158; Resp 17; Pulse Ox 97% on R/A; Pain 5/10; tm6 23:31 BP 164 / 79; Pulse 122; Resp 24; Pulse Ox 97% on R/A; tm6 23:58 BP 145 / 76; Pulse 99; Resp 20; Pulse Ox 96% on R/A; Pain 0/10; tm6 12/03 00:47 BP 141 / 83; Pulse 101; Resp 15; Temp 98.2(TE); Pulse Ox 96% on R/A; Height 5 ft. 8 in. tm6 ; Pain 0/10; 12/02 21:07 Body Mass Index 32.23 (96.16 kg, 172.72 cm) jb4 12/02 21:07 Pain Scale: Adult jb4 21:34 Pain Scale: Adult tm6 22:50 Pain Scale: Adult tm6 23:58 Pain Scale: Adult tm6 12/03 00:47 Pain Scale: Adult tm6 MDM: 12/02 20:58 Patient medically screened. sb4 22:27 Data reviewed: vital signs, nurses notes, lab test result(s), EKG, radiologic studies, sb4 I have discussed the patient's presentation/case with the attending Emergency Department Physician; and as a result, I will discharge patient. Consideration of Admission/Observation Patient was admitted/placed on observation. Management of patient was discussed with the following: Patching Machine Operator: Dr. Sanders, will cath tomorrow. Primary Care Provider: Dr. Casey. Counseling: I had a detailed discussion with the patient and/or guardian regarding the historical points, exam findings, and any diagnostic results supporting the discharge/admit diagnosis, the presence of at least one elevated blood pressure reading (>120/80) during this emergency department visit, lab results, radiology results, the need for further work-up and treatment in the hospital, to return to the emergency department if symptoms worsen or persist or if there are any questions or concerns that arise at home. 12/02 21:11 Order name: Basic Metabolic Panel; Complete Time: 22:05 sb4 12/02 21:11 Order name: CBC with Diff; Complete Time: 21:52 sb4 12/02 21:11 Order name: LFT's; Complete Time: 22:05 sb4 12/02 21:11 Order name: Magnesium; Complete Time: 22:05 sb4 12/02 21:11 Order name: NT PRO-BNP; Complete Time: 22:05 sb4 12/02 21:11 Order name: PT-INR; Complete Time: 22:33 sb4 12/02 21:11 Order name: Troponin HS; Complete Time: 22:05 sb4 12/02 21:11 Order name: Lipase; Complete Time: 22:05 sb4 12/02 21:11 Order name: XRAY Chest (1 view); Complete Time: 22:26 sb4 12/02 22:15 Order name: Extremity Venous Uni Ltd sb4 12/02 21:11 Order name: EKG; Complete Time: 21:11 sb4 12/02 21:11 Order name: Cardiac monitoring; Complete Time: 21:21 sb4 12/02 21:11 Order name: EKG - Nurse/Tech; Complete Time: 21:21 sb4 12/02 21:11 Order name: IV Saline Lock; Complete Time: 21:40 sb4 12/02 21:11 Order name: Labs collected and sent; Complete Time: 21:40 sb4 12/02 21:11 Order name: O2 Per Protocol; Complete Time: 21:21 sb4 12/02 21:11 Order name: O2 Sat Monitoring; Complete Time: 21:21 sb4 EC:27 Rate is 108 beats/min. Rhythm is regular, Sinus tachycardia with Occasional PVCs. CA sb4 interval is normal at 168 msec. QRS interval is normal at 96 msec. QT interval is normal at 340 msec. Clinical impression: no prior EKG to MD kaia reviewed, no STEMI noted. Administered Medications: 22:12 Drug: Aspirin PO Chewable Tablet 324 mg PO once; 81 mg tablets x 4 Route: PO; tm6 22:23 Drug: Enoxaparin Sub-Q 1 mg/kg Sub-Q once Route: Sub-Q; Site: right lower abdomen; tm6 22:53 Not Given (Physician Discretion): diazepam5 mg IVP once sb4 23:04 Drug: Diltiazem IVP 10 mg IVP once Route: IVP; Site: right antecubital; tm6 23:05 Drug: NS 0.9% IV 1000 ml IV at 75 ml/hr continuous Route: IV; Rate: 75 ml/hr; Site: tm6 right antecubital; 23:05 Drug: Potassium PO Effervescent Tablet 50 mEq PO once; dissolve in 4 ounces of water or tm6 juice Route: PO; 23:48 Drug: Diltiazem IVP 25 mg IVP once; Over 2 Minutes Route: IVP; Site: right antecubital; tm6 23:58 Drug: Magnesium Sulfate IVPB 2 grams IVPB once over 2 hrs Route: IVPB; Infused Over: 2 tm6 hrs; Site: right antecubital; 12/03 01:22 Drug: Potassium Chloride IV 20 mEq IV at calculated rate once; administer over 1-2 tm6 hours Route: IV; Rate: calculated rate; Site: right antecubital; Disposition Summary: 12/03/23 22:28 Hospitalization Ordered Notes: Hospitalization Status: Inpatient Admission sb4 Provider: Ochoa Casey4 Location: Telemetry/[facility] (Inpatient) sb4 Condition: Fair sb4 Problem: new sb4 Symptoms: are unchanged sb4 Bed/Room Type: Standard sb4 Room Assignment: [facility](12/04/23 00:43) [facility] Diagnosis - Subsequent non-ST elevation (NSTEMI) myocardial infarction sb4 Forms: - Medication Reconciliation Form sb4 - SBAR form sb4 - Leadership Thank You Letter sb4 Addendum: 12/05/2023 06:08 I was immediately available for consultation during this patient's visit. I did not e c2 personally see the patient or discuss the patient with the NNEKA. . Signatures: Dispatcher [employer] Nicholas Feliciano RN RN aris4 Vidya Manuel PA-C PAKristopher sb4 Neftali Guzman MD MD 2 Myriam Guo [facility] Evelina Asher RN RN tm6 Corrections: (The following items were deleted from the chart) 12/02 21:11 21:11 BASIC METABOLIC PANEL+C.LAB.BRZ ordered. EDMS EDMS 21:11 21:11 CBC+H.LAB.BRZ ordered. EDMS EDMS 21:11 21:11 HEPATIC FUNCTION+C.LAB.BRZ ordered. EDMS EDMS 21:11 21:11 MAGNESIUM+C.LAB.BRZ ordered. EDMS EDMS 21:11 21:11 PROBNP+C.LAB.BRZ ordered. EDMS EDMS 21:11 21:11 PROTIME (+INR)+COAG.LAB.BRZ ordered. EDMS EDMS 21:11 21:11 Troponin High Sensitivity+C.LAB.BRZ ordered. EDMS EDMS 21:11 21:11 LIPASE+C.LAB.BRZ ordered. EDMS EDMS 21:38 21:27 Rate is 108 beats/min. Rhythm is regular, Sinus tachycardia with Occasional PVCs. sb4 CA interval is normal at 168 msec. QRS interval is normal at 96 msec. QT interval is normal at [address] Segment is depressed in leads II, III, V4, V5, V6. Interpreted by me. Reviewed by me. sb4 12/03 00:43 12/02 22:28 sb4 [facility]
[2023-12-03] MEDS ORDERED: dilTIAZem HCL 25 MG/5 ML VIAL IV ONE ×2 (22:54→23:39)
[2023-12-03] MEDS ORDERED: POTASSIUM 25 MEQ EFFERV TAB ONE (22:54)
[2023-12-03] MEDS ORDERED: NA CHLORIDE 0.9% 1,000 ML ONE (22:55)
[2023-12-03] MEDS ORDERED: KCL 20 MEQ/100 mL IVPB 100 ML IV ONE (23:52)
[2023-12-03] MEDS ORDERED: Magnesium Sulfate 2gm IVPB 2 G/50 ML BAG IV ONE (23:53)
[2023-12-04] MEDS ORDERED: ACETAMINOPHEN 325 MG TABLET PO PRN (01:52)
[2023-12-04] MEDS ORDERED: ONDANSETRON 4 MG/2 ML VIAL IV PRN (01:52)
[2023-12-04 02:37] VITALS: BMI 32.2
[2023-12-04 04:23] LABS: Absolute Basophils 0.1 K/uL (0-0.5); Absolute Eosinophils 0.1 K/uL (0-0.5); Absolute Lymphocytes (CBC) 1.1 K/uL (0.7-4.9); Absolute Monocytes 0.7 K/uL (0.1-1.3); Absolute Neutrophil 10.2 K/uL (1.8-8.0); Basophils % 1.1 % (0-1.3); Eosinophils % 0.6 % (0-4.4); Hematocrit 39.1 % (36.0-45.0); Hemoglobin 13.6 g/dL (12.0-15.0); Lymphocytes % 8.9 % (15.3-44.8); MCH 29.6 pg (27.0-35.0); MCHC 34.7 g/dL (32.0-36.0); MCV 85.3 fL (80-100); MPV 7.4 fL (7.6-11.3); Monocytes % 5.4 % (3.3-12.3); Nucleated Red Blood Cells % 0.1 % (0-0); Platelets 282 thou/uL (152-406); RBC Red Blood Cell Count 4.59 M/uL (3.86-4.86); Red Cell Distribution Width 14.4 % (12.1-15.2)
[2023-12-04 04:49] LABS: Anion Gap 6.7 mEq/L (5.0-15.0); Magnesium 2.8 mg/dL (1.6-2.4); Phosphorus 2.7 mg/dL (2.5-4.9); Potassium 4.7 mEq/L (3.5-5.1)
--- NOTE | 2023-12-04 08:21 | P.HP ---
Certification for Inpatient Patient admitted to: Inpatient With expected LOS: >2 Midnights Patient will require the following post-hospital care: None Practitioner: I am a practitioner with admitting privileges, knowledge of patient current condition, hospital course, and medical plan of care. Services: Services provided to patient in accordance with Admission requirements found in Title 42 Section 412.3 of the Code of Federal Regulations Patient History Date of Service: 12/04/23 Primary Care Provider: Carmela Reason for admission: NSTEMI History of Present Illness: Patient experienced substernal chest pressure last night. Radiating to the left armpit and left jaw. She had worsening pain and her daughter brought her to the ER. She has a history of HTN, hypothyroidism. Nicotine dependence. She is not currently smoking. She is feeling better this morning. Significant elevation in troponins. Allergies No Known Drug Allergies Allergy (Unverified 05/04/15 12:45) Unknown No Known Allergies Allergy (Uncoded 07/27/17 22:15) Unknown Home Medications: Amlodipine [Norvasc*] 1 tab PO DAILY 12/04/23 Escitalopram Oxalate [Lexapro] 1 tab PO DAILY 12/04/23 Levothyroxine [Synthroid*] 1 tab PO DAILY 12/04/23 Losartan Potassium [Cozaar] 1 tab PO DAILY 12/04/23 Primidone [Mysoline *] 1 tab PO BEDTIME 12/04/23 - Past Medical/Surgical History Has patient received pneumonia vaccine in the past: Yes -: HTN -: hypothyroidism -: hyperlipidemia -: DVT left leg -: tubal ligation - Social History Smoking Status: Unknown if ever smoked Place of Residence: Home Review of Systems 10-point ROS is otherwise unremarkable Cardiovascular: Chest Pain Physical Examination - Vital Signs Temperature: 98.3 F Blood Pressure: 133/83 Pulse: 113 Respirations: 16 Pulse Ox (%): 96 - Physical Exam General: Alert, In no apparent distress HEENT: Atraumatic, PERRLA, Mucous membr. moist/pink, EOMI, Sclerae nonicteric Neck: Supple, 2+ carotid pulse no bruit, No LAD, Without JVD or thyroid abnormality Respiratory: Clear to auscultation bilaterally, Normal air movement Cardiovascular: Regular rate/rhythm, Normal S1 S2 Gastrointestinal: Normal bowel sounds, No tenderness Musculoskeletal: No tenderness Integumentary: No rashes Neurological: Normal gait, Normal speech, Normal strength at 5/5 x4 extr, Normal tone, Normal affect Lymphatics: No axilla or inguinal lymphadenopathy - Studies Laboratory Data (last 24 hrs) 12/03/23 12/03/23 12/03/23 21:32 21:32 21:32 WBC 12.00 H Hgb 13.0 Hct 38.1 Plt Count 260 PT 10.8 INR 0.98 Sodium 123 L Potassium 3.0 L BUN 7 Creatinine 1.03 H Glucose 171 H Magnesium 2.0 Total Bilirubin 0.3 AST 17 ALT 23 Alkaline Phosphatase 78 Lipase 41 Assessment and Plan - Problems (Diagnosis) (1) NSTEMI (non-ST elevated myocardial infarction) Current Visit: Yes Status: Acute Plan: will discuss plans with Dr. Sanders. Will keep her NPO. Start the patient on a heparin drip. Most likely she will need a stress test or cardiac cath (2) Essential (primary) hypertension Current Visit: Yes Status: Chronic Plan: restart home losartan and amlodipine (3) Hypothyroidism Current Visit: Yes Status: Chronic Plan: restart home medications and check the patients tsh Qualifiers: Hypothyroidism type: unspecified Qualified Code(s): E03.9 - Hypothyroidism, unspecified Discharge Plan: Home Plan to discharge in: Greater than 2 days - Advance Directives Does patient have a Living Will: No Does patient have a Durable POA for Healthcare: No Physician Review: Patient Assessed, Agree with Above Assessment and Plan Critical Care: No Time Spent Managing Pts Care (In Minutes): 45
[2023-12-04] MEDS: ESCITALOPRAM 20 MG TAB PO SCH (08:53)
[2023-12-04] MEDS: ESCITALOPRAM 5 MG PO SCH (09:00)
[2023-12-04] MEDS: LEVOTHYROXINE SOD 0.1 MG TAB PO SCH (09:23)
[2023-12-04] MEDS: AMLODIPINE 10 MG TAB PO SCH (09:23)
[2023-12-04] MEDS: LOSARTAN POTASSIUM 50 MG TABLET PO SCH (09:23)
[2023-12-04] MEDS: HEPARIN/D5W 25,000 UNIT/500 ML BAG IV SCH (10:28)
[2023-12-04] MEDS ORDERED: VERAPAMIL HCL 10 MG/4 ML VIAL IV ONE (11:38)
[2023-12-04] MEDS ORDERED: LIDOCAINE 1% 20 ML MDV ONE (11:38)
[2023-12-04] MEDS ORDERED: HEPA 1000U/500MLS 2,000 UNIT/1,000 ML BAG IV ONE (11:38)
[2023-12-04] MEDS ORDERED: ATROPINE SULF 1 MG/10 ML SYR IV ONE (11:39)
[2023-12-04] MEDS ORDERED: TICAGRELOR 90 MG TABLET PO ONE (11:39)
[2023-12-04] MEDS ORDERED: MIDAZOLAM HCL 2 MG/2 ML INJ ONE (11:39)
[2023-12-04] MEDS ORDERED: FENTANYL CITR 100 MCG/2 ML ONE (11:39)
[2023-12-04] MEDS ORDERED: HEPARIN 10,000 UNIT/10 ML VIAL IV ONE (11:39)
[2023-12-04] MEDS ORDERED: HEPARIN 5000 UNIT/ML 1 ML VIAL ONE (11:39)
[2023-12-04] MEDS ORDERED: CLOPIDOGREL 75 MG TABLET ONE (11:40)
[2023-12-04] MEDS ORDERED: ASPIRIN 325 MG TAB ONE (11:40)
[2023-12-04] MEDS: NA CHLORIDE 0.9% 500 ML ONE (11:53)
[2023-12-04 15:01] VITALS: O2SAT 100
[2023-12-04 16:12] VITALS: BP 135/74; TEMP 97.6
--- NOTE | 2023-12-04 17:41 | OP ---
Date of Procedure: 12/04/2023 Surgeon: KEVIN ONEILL Procedures Performed: 1.Selective coronary angiogram. 2.Left heart catheterization. Indication: Pog-FI-skuxusuan myocardial infarction. Access: Right radial artery 6-Azerbaijani closed with TR band. Complications: None. Bleeding: Less than 50 mL. Anesthesia: Total sedation time was 30 minutes. Used fentanyl and Versed. Description Of Procedure: After risks, benefits, and alternatives were explained, patient agreed to procedure and signed informed consent. The patient was brought into the cardiac [facility], prepped and draped in the usual sterile fashion, and then I accessed the right radial artery using pediatric micropuncture kit, ultrasound guidance, and placed a 6-Azerbaijani Slender sheath and took 5-Azerbaijani Morton 4.0 catheter into the aortic root over a J-wire, engaged the left main and took stand tresa views and then in the RCA, took standard views and the catheter was pushed over the wire into the LV, measured the LVEDP. Pullback did not record any gradient. Then I removed the catheter and the sheath, placed TR band with good hemostasis. Findings: 1.Left main; distal 80% to 90%, very hazy with stable plaque. 2.LAD; proximal 80%, mid diffuse 70%, mid to distal focal 60% and diagonal 1 branch has proximal 50% stenosis. 3.Left circumflex; it is moderate-size vessel with mid 50% stenosis and OM 1 branch has proximal 50% stenosis. 4.RCA; proximal diffuse 80% stenosis, mid 60% stenosis and it is dominant. 5.LVEDP is 18 mmHg, which is elevated. 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 Recommendation: Transfer for emergent coronary artery bypass surgery and continue IV heparin. Discu ssed the case with the medical staff on the floor and I discussed the case with the CT Surgery at [facility] and the patient was accepted for transfer. SR/MODL Voice ID: [id number] Report ID: [id number]
--- NOTE | 2023-12-04 18:31 | CON ---
Date of Consultation: 12/04/2023 Reason For Consultation: Non-STEMI. History Of Present Illness: This is a -puxf-dpq female, past medical history of hypertensi on, hypothyroidism, DVT of the lower extremity, presented with chest pain, left-sided, radiates to th e jaw and the left shoulder. In the emergency room, she was ruled in for [id number]-SM-[id number] myocardial infarction. I saw her by the bedside. She was chest pain free, but troponin went up significantly and then she was on heparin drip. She is an active smoker. Past Medical History: As outlined above in the HPI. Medications: Refer to reconciliation sheet for detailed list. Allergies: NO KNOWN DRUG ALLERGIES. Family History: No premature coronary artery disease or cancer. Social History: She is active smoker. Does not drink or use any drugs. Review of Systems: All systems reviewed and they were negative except as mentioned in the HPI. Physical Examination: Vital Signs: Reviewed. Head and Neck: Pupils are equal, reactive to light. Intact eye movements. No JVD. No cervical lym phadenopathy. Neck is supple. Thyroid is not enlarged. Lungs: Clear to auscultation bilaterally. No rhonchi, wheezing, or crackles. No accessory muscle u se. Heart: Regular rate and rhythm. No extra sounds. Abdomen: Soft, nontender. Bowel sounds positive. No organomegaly. No masses or hernia. No rigidi ty or rebound. Extremities: No edema, clubbing, or cyanosis. Intact pulses. Skin: No rash. No nodule. Neurologic: Alert, awake, oriented x3. No acute focal deficits appreciated. Investigations: Troponin 9531. BUN is 6, creatinine 1.02, LDL is 159, and hemoglobin is 13.6. Assessment And Recommendations: 1.Acute [id number] myocardial infarction. NPO, status post coronary angiogram today. Severe multivessel including distal left main disease. Discussed the case with CT Surgery at [facility]. The patient was accepted for transfer for coronary artery bypass surgery. Continue ba by aspirin, heparin drip. 2.Hypertension. Blood pressure is controlled. Continue current management. 3.Hypothyroidism, on LT4. 4.Smoker. She was counseled to quit. SR/MODL Voice ID: [id number] Report ID: [id number]
[2023-12-04] MEDS ORDERED: PRIMIDONE 50 MG TAB PO SCH (21:00)
--- NOTE | 2023-12-05 19:57 | RAD REPORT ---
EXAM DESCRIPTION: US - Extremity Venous Uni Ltd - 12/03/2023 10:37 pm CLINICAL HISTORY: The patient is 73 years old and is Female; SWELLING TECHNIQUE: Real-time duplex ultrasound scan of the left lower extremity veins integrating B-mode two -dimensional vascular structure, Doppler spectral analysis, color flow Doppler imaging and compressio n. COMPARISON: No relevant prior studies available. FINDINGS: DEEP VEINS: Unremarkable. No DVT in the visualized common femoral, femoral, proximal d eep femoral, popliteal, posterior tibial, or peroneal veins. The veins demonstrate normal color corry w, are normally compressible, with normal phasic flow and/or augmentation response. SUPERFICIAL VEINS: Unremarkable. No thrombus in the visualized great saphenous vein. SOFT TISSUES: No acute findings. No popliteal cyst. IMPRESSION: Normal left lower extremity duplex venous ultrasound. Electronically signed by: Jennifer Simmons MD 12/03/2023 10:48 PM CDT Due to temporary technical issues with the PACS/Fluency reporting system, reports are being signed by the in house radiologists without review as a courtesy to insure prompt reporting. The interpreting radiologist is fully responsible for the content of the report.
== END 2023-12-04 17:15 | disposition short-term general hospital (02) | DRG 282 ==
LOC: ER 20:47 → ERHOLD 12-04 00:03 → 2ND 12-04 01:42
PROVIDERS: ADMIT Internal Medicine; ATTEND Internal Medicine
PROC: 4A023N7 Measurement of Cardiac Sampling and Pressure, Left Heart, Percutaneous Approach (ICD-10-PCS; principal; 2023-12-04)
PROC: B2111ZZ Fluoroscopy of Multiple Coronary Arteries using Low Osmolar Contrast (ICD-10-PCS; 2023-12-04)
DX: I21.4 Non-ST elevation (NSTEMI) myocardial infarction (principal); E78.5 Hyperlipidemia, unspecified; I10 Essential (primary) hypertension; E03.9 Hypothyroidism, unspecified; F17.210 Nicotine dependence, cigarettes, uncomplicated; Z98.51 Tubal ligation status; Z79.01 Long term (current) use of anticoagulants; Z86.718 Personal history of other venous thrombosis and embolism; Z79.890 Hormone replacement therapy; Z79.899 Other long term (current) drug therapy
CPT/HCPCS: 36415; 71045; 80048; 80061; 80076; 83690; 83735; 83880; 84100; 84484; 85025; 85610; 85730; 93005; 93971; J0461; J1644; J1650; J2001; J2250; J3010; J3475; J3480; J7030; J7040

== ENCOUNTER 2023-12-21 14:42 | Inpatient (IN) | payer OTHER ==
[2023-12-21 15:16] LABS: Absolute Basophils 0.1 K/uL (0-0.5); Absolute Eosinophils 0.2 K/uL (0-0.5); Absolute Lymphocytes (CBC) 0.7 K/uL (0.7-4.9); Absolute Monocytes 0.8 K/uL (0.1-1.3); Absolute Neutrophil 6.5 K/uL (1.8-8.0); Basophils % 0.9 % (0-1.3); Eosinophils % 1.9 % (0-4.4); Hematocrit 23.9 % (36.0-45.0); Hemoglobin 7.5 g/dL (12.0-15.0); Lymphocytes % 8.9 % (15.3-44.8); MCH 28.2 pg (27.0-35.0); MCHC 31.5 g/dL (32.0-36.0); MCV 89.7 fL (80-100); MPV 7.1 fL (7.6-11.3); Monocytes % 9.3 % (3.3-12.3); Nucleated RBC Absolute Count 0.1 (0-0); Nucleated Red Blood Cells % 0.7 % (0-0); Platelets 424 thou/uL (152-406); RBC Red Blood Cell Count 2.67 M/uL (3.86-4.86); Red Cell Distribution Width 17.9 % (12.1-15.2)
--- NOTE | 2023-12-21 15:24 | RAD REPORT ---
EXAM DESCRIPTION: RAD - Chest Single View - 12/21/2023 3:17 pm CLINICAL HISTORY: DYSPNEA Chest pain. COMPARISON: Chest Single View dated 12/03/2023; Chest Single View dated 05/09/2021; Abdomen Acute Seri es dated 04/07/2019; Chest Pa And Lat (2 Views) dated 01/19/2019 FINDINGS: Portable technique limits examination quality. Mild interstitial pulmonary edema. Moderate left pleural effusion with atelectasis in the left lung b ase. The heart is moderately enlarged. Sternotomy wires. IMPRESSION: Mild CHF. Moderate left pleural effusion with atelectasis left lung base.
[2023-12-21 15:35] LABS: Anion Gap 9.3 mEq/L (5.0-15.0); Potassium 5.3 mEq/L (3.5-5.1)
[2023-12-21] MEDS ORDERED: FUROSEMIDE 40 MG/4 ML VIAL ONE (16:10)
--- NOTE | 2023-12-21 16:12 | ER ---
Nurse's Notes [facility] Name: Griselda Barksdale Age: 73 yrs Sex: Female : 1950 Arrival Date: 12/21/2023 Time: 14:42 Bed 20 Private MD: Diagnosis: Volume Overload;Heart failure, unspecified;Hyperkalemia Presentation: 12/20 14:46 Chief complaint: Patient states: shortness of breath and leg swelling. Coronavirus as6 screen: At this time, the client does not indicate any symptoms associated with coronavirus-19. Ebola Screen: No symptoms or risks identified at this time. Initial Sepsis Screen: Does the patient meet any 2 criteria? No. Patient's initial sepsis screen is negative. Does the patient have a suspected source of infection? No. Patient's initial sepsis screen is negative. Risk Assessment: Do you want to hurt yourself or someone else? Patient reports no desire to harm self or others. Onset of symptoms was November 2023. 14:46 Method Of Arrival: Wheelchair as6 14:46 Acuity: FILEMON 2 as6 Historical: - Allergies: 14:48 No Known Allergies; as6 - PMHx: 14:48 DVT Left leg; Hyperlipidemia; Hypertension; Hypothyroidism; Myocardial infarction; as6 - PSHx: 14:48 Ligation of fallopian tube; as6 15:00 Heart Bypass December 07, 2023; aa5 - Immunization history:: Adult Immunizations up to date. - Infectious Disease History:: Denies. - Social history:: Smoking status: Patient/guardian denies using tobacco, Stopped _ months ago 1. Screenin:00 [facility] ED Fall Risk Assessment (Adult) History of falling in the last 3 months, aa5 including since admission No falls in past 3 months (0 pts) Confusion or Disorientation No (0 pts) Intoxicated or Sedated No (0 pts) Impaired Gait Yes (1 pt) Mobility Assist Device Used Yes (1 pt) Altered Elimination Yes (1 pt) Score/Fall Risk Level 3 or more points = High Risk Oriented to surroundings, Maintained a safe environment, Educated pt \\T\\ family on fall prevention, incl call for assistance when getting out of bed, Assessed \\T\\ reinforced patient's understanding of fall precautions, Hourly rounding (assess needs \\T\\ fall precautionary measures) done. Abuse screen: Denies threats or abuse. Nutritional screening: No deficits noted. Tuberculosis screening: No symptoms or risk factors identified. Assessment: 15:00 General: Appears uncomfortable, Behavior is calm, cooperative. Pain: Denies pain. aa5 Neuro: Level of Consciousness is awake, alert, obeys commands, Oriented to person, place, time, situation. Cardiovascular: Denies chest pain, nausea, Heart tones S1 S2 present Edema 2+ pitting edema noted to jan lower extremities. Rhythm is sinus rhythm. Respiratory: Reports shortness of breath at rest Airway is patent Respiratory effort is labored, Respiratory pattern is regular, symmetrical, Breath sounds are coarse bilaterally. the patient has mild shortness of breath. GI: Abdomen is round Bowel sounds present X 4 quads. Abd is soft X 4 quads. : No signs and/or symptoms were reported regarding the genitourinary system. EENT: No signs and/or symptoms were reported regarding the EENT system. Derm: Skin is dry, Skin is pink, Skin temperature is warm Incision to sternum without s/s of infection noted, healing well. Pt states "I had heart bypass December 06". Musculoskeletal: Range of motion: intact in all extremities. 15:29 Reassessment: Pt repositioned in bed, warm blanket given. . aa5 15:29 Neuro: Level of Consciousness is awake, alert, obeys commands, Oriented to person, aa5 place, time, situation. Cardiovascular: Rhythm is sinus rhythm. Respiratory: Airway is patent Respiratory effort is even, unlabored, Respiratory pattern is regular, symmetrical. Derm: Skin is dry, Skin is pink, Skin temperature is warm. 16:20 Reassessment: Pt assisted with bedpan, voided x 1. . aa5 16:20 Reassessment: Patient is alert, oriented x 3, equal unlabored respirations, skin aa5 warm/dry/pink. 16:20 Cardiovascular: Rhythm is sinus rhythm. aa5 16:30 Reassessment: Pt assisted with bedpan, voided x 1.. aa5 16:45 Reassessment: Pt assisted with bedpan, voided x 1. . aa5 16:55 Reassessment: Pt assisted with bedpan, voided x 1. . aa5 17:00 Reassessment: Patient is alert, oriented x 3, equal unlabored respirations, skin aa5 warm/dry/pink. Vital Signs: 14:46 BP 147 / 77; Pulse 69; Resp 20 S; Temp 98.1; Pulse Ox 97% on R/A; Weight 96.16 kg (R); as6 Height 5 ft. 8 in. (R); Pain 0/10; 15:45 BP 168 / 69; Pulse 64; Resp 20 S; Pulse Ox 95% on R/A; aa5 16:15 BP 168 / 73; Pulse 75; Resp 18 S; Pulse Ox 96% on R/A; aa5 14:46 Body Mass Index 32.23 (96.16 kg, 172.72 cm) as6 14:46 Pain Scale: Adult as6 ED Course: 14:43 Patient arrived in ED. im 14:48 Triage completed. as6 14:49 Neftali Guzman MD is Attending Physician. ec2 14:49 Arm band placed on. as6 15:00 Patient has correct armband on for positive identification. Placed in gown. Bed in low aa5 position. Call light in reach. Side rails up X2. Client placed on continuous cardiac and pulse oximetry monitoring. NIBP monitoring applied. night monitor on. Pulse ox on. NIBP on. 15:10 Initial lab(s) drawn, by me, sent to lab. Inserted saline lock: 20 gauge in right aa5 antecubital area, using aseptic technique. Blood collected. 15:18 XRAY Chest (1 view) In Process Unspecified. EDMS 15:29 EKG done, by ED staff, reviewed by Neftali Guzman MD. aa5 15:41 Joanne Washington, DIANE is Primary Nurse. aa5 16:12 Ochoa Casey MD is Hospitalizing Provider. ec2 17:00 No provider procedures requiring assistance completed. Patient admitted, IV remains in aa5 place. Administered Medications: 16:15 Drug: Furosemide IVP 40 mg IVP once; give over 2 minutes Route: IVP; Site: right aa5 antecubital; 16:25 Follow up: Response: No adverse reaction aa5 Medication: 15:49 VIS not applicable for this client. aa5 Outcome: 16:12 Decision to Hospitalize by Provider. ec2 17:00 Admitted to Tele accompanied by tech, family with patient, via stretcher, with chart, aa5 Other Faxed report to admitting nurse, Rm 231. 17:00 Condition: stable 17:00 Instructed on the need for admit, Demonstrated understanding of instructions, 17:04 Patient left the ED. aa5 Signatures: Dispatcher [employer] Joanne Chun, DIANE RN aa5 Carlo Davis, DIANE RN as6 Lisa Trejo Edwin, MD MD ec2 Corrections: (The following items were deleted from the chart) 14:49 14:48 PSHx: open heart; as6 as6 15:52 14:48 PSHx: bypass; as6 aa5 17:12 15:00 Derm: Skin is dry, Skin is pale, Skin temperature is warm Incision to sternum aa5 without s/s of infection noted, healing well. Pt states "I had heart bypass December 06" aa5 17:12 15:29 Derm: Skin is dry, Skin is pale, Skin temperature is warm aa5 aa5
[2023-12-21] MEDS ORDERED: ONDANSETRON 4 MG/2 ML VIAL IV PRN (16:13)
--- NOTE | 2023-12-21 16:13 | EDPHYS ---
Physician Documentation [facility] Name: Griselda Barksdale Age: 73 yrs Sex: Female : 1950 Arrival Date: 12/21/2023 Time: 14:42 Bed 20 Private MD: ED Physician Neftali Guzman HPI: 12/20 14:54 This 73 yrs old Female presents to ER via Wheelchair with complaints of Shortness Of ec2 Breath, Leg Swelling. 14:54 Patient arrives today for evaluation of dyspnea as well as lower extremity swelling. ec2 Patient reports that she been having worsening symptoms. Patient reports recent CABG approx 2w ago. Reports no chest pain, does report some shortness of breath with exertion. Does report worsening lower extremity edema, not on a diuretic. Patient is on Eliquis.. Historical: - Allergies: 14:48 No Known Allergies; as6 - PMHx: 14:48 DVT Left leg; Hyperlipidemia; Hypertension; Hypothyroidism; Myocardial infarction; as6 - PSHx: 14:48 Ligation of fallopian tube; as6 15:00 Heart Bypass December 07, 2023; aa5 - Immunization history:: Adult Immunizations up to date. - Infectious Disease History:: Denies. - Social history:: Smoking status: Patient/guardian denies using tobacco, Stopped _ months ago 1. ROS: 14:58 Constitutional: as per hpi ec2 Exam: 14:58 Constitutional: GEN: NAD Head: atraumatic Eyes: EOMI Ears: External ears are ec2 normal. CV: regular rate, 2+ bilateral lower extremity edema. LUNGS: no respiratory distress ABD: non-distended SKIN: no evidence of rashes MSK: no evidence of trauma NEURO: moves all extremities equally Vital Signs: 14:46 BP 147 / 77; Pulse 69; Resp 20 S; Temp 98.1; Pulse Ox 97% on R/A; Weight 96.16 kg (R); as6 Height 5 ft. 8 in. (R); Pain 0/10; 15:45 BP 168 / 69; Pulse 64; Resp 20 S; Pulse Ox 95% on R/A; aa5 16:15 BP 168 / 73; Pulse 75; Resp 18 S; Pulse Ox 96% on R/A; aa5 14:46 Body Mass Index 32.23 (96.16 kg, 172.72 cm) as6 14:46 Pain Scale: Adult as6 MDM: 14:54 Patient medically screened. ec2 14:58 Data reviewed: vital signs. ED course: Patient arrives today for evaluation of lower ec2 extremity edema and shortness of breath. Lamination remarkable cardiovascular findings as above peripheral obtain a cardiac evaluation. Evaluate for arrhythmia, electrolyte disturbances, volume overload as well as ACS. . 15:28 ED course: CBC shows slight anemia with a hemoglobin of 7.5. Chest x-ray shows CHF with ec2 left-sided pleural effusion, moderate in size. . 15:37 ED course: EKG independently reviewed and interpreted by me, shows normal sinus rhythm, ec2 rate of 69, no acute ST segment ovation's, intervals nonconcerning.. 15:48 ED course: Metabolic profile shows slight hypokalemia with a potassium of 5.3, renal ec2 dysfunction with creatinine 1.26 and GFR 46. BNP elevated at 3000. Troponin within normal ranges. . 16:11 ED course: I discussed case with Dr. Casey who agrees to manage the patient, patient ec2 admitted and updated on plan of care. 12/20 14:54 Order name: Basic Metabolic Panel; Complete Time: 15:48 ec2 12/20 14:54 Order name: CBC with Diff; Complete Time: 15:27 ec2 12/20 14:54 Order name: NT PRO-BNP; Complete Time: 15:48 ec2 12/20 14:54 Order name: Troponin HS; Complete Time: 15:48 ec2 12/20 16:18 Order name: Basic Metabolic Panel EDWY 12/20 16:18 Order name: Basic Metabolic Panel EDW[place] 12/20 16:18 Order name: CBC with Automated Diff EDMS 12/20 16:18 Order name: CBC with Automated Diff EDMS 12/20 16:18 Order name: Lipid Profile EDMS 12/20 16:18 Order name: Lipid Profile EDMS 12/20 14:54 Order name: XRAY Chest (1 view); Complete Time: 15:27 ec2 12/20 14:54 Order name: EKG; Complete Time: 14:55 ec2 12/20 14:54 Order name: Cardiac monitoring; Complete Time: 15:41 ec2 12/20 14:54 Order name: EKG - Nurse/Tech; Complete Time: 15:41 ec2 12/20 14:54 Order name: IV Saline Lock; Complete Time: 15:41 ec2 12/20 14:54 Order name: Labs collected and sent; Complete Time: 15:41 ec2 12/20 14:54 Order name: O2 Per Protocol; Complete Time: 15:41 ec2 12/20 14:54 Order name: O2 Sat Monitoring; Complete Time: 15:41 ec2 Administered Medications: 16:15 Drug: Furosemide IVP 40 mg IVP once; give over 2 minutes Route: IVP; Site: right aa5 antecubital; 16:25 Follow up: Response: No adverse reaction aa5 Disposition Summary: 12/21/23 16:12 Hospitalization Ordered Notes: Hospitalization Status: Inpatient Admission ec2 Provider: Ochoa Casey2 Location: Telemetry/MedSurg (Inpatient) ec2 Condition: Stable ec2 Problem: an acute exacerbation ec2 Symptoms: have improved ec2 Bed/Room Type: Standard ec2 Room Assignment: 231(12/21/23 16:27) bd Diagnosis - Volume Overload ec2 - Heart failure, unspecified ec2 - Hyperkalemia ec2 Forms: - Medication Reconciliation Form ec2 - SBAR form ec2 - Leadership Thank You Letter ec2 Signatures: Dispatcher [employer] EDMS Mary Ann Holden bd Joanne Washington RN RN aa5 Carlo Davis RN RN as6 Neftali Guzman MD MD ec2 Corrections: (The following items were deleted from the chart) 14:49 14:48 PSHx: open heart; as6 as6 14:58 14:54 Patient arrives today for evaluation of dyspnea as well as lower extremity ec2 swelling. Patient reports that she been having worsening symptoms. Patient reports recent CABG approx 2w ago. . ec2 15:52 14:48 PSHx: bypass; as6 aa5 16:27 16:12 ec2 bd
[2023-12-21 17:34] VITALS: O2SAT 95
--- NOTE | 2023-12-21 19:03 | P.HP ---
Certification for Inpatient Patient admitted to: Inpatient With expected LOS: >2 Midnights Patient will require the following post-hospital care: Home Health Services Practitioner: I am a practitioner with admitting privileges, knowledge of patient current condition, hospital course, and medical plan of care. Services: Services provided to patient in accordance with Admission requirements found in Title 42 Section 412.3 of the Code of Federal Regulations Patient History Date of Service: 12/21/23 Primary Care Provider: Carmela Reason for admission: CHF exacerbation History of Present Illness: Patient is an office patient of [employer]. She recently had a cabg in [facility]. She had some swelling of the legs last week. Was given some diuresis last week. 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 However she continue to get swelling and sob. The patient came to the ER and was found to have fluid overload. She is also on metoprolol, eliquis and amiodarone I will need to double check that in the office. The patient is resting in her room at this time Allergies No Known Drug Allergies Allergy (Unverified 05/04/15 12:45) Unknown No Known Allergies Allergy (Uncoded 07/27/17 22:15) Unknown Home Medications: Amlodipine [Norvasc*] 1 tab PO DAILY 12/04/23 Escitalopram Oxalate [Lexapro] 1 tab PO DAILY 12/04/23 Levothyroxine [Synthroid*] 1 tab PO DAILY 12/04/23 Losartan Potassium [Cozaar] 1 tab PO DAILY 12/04/23 Primidone [Mysoline *] 1 tab PO BEDTIME 12/04/23 - Past Medical/Surgical History Has patient received pneumonia vaccine in the past: Yes Diabetic: No -: HTN -: hypothyroidism -: hyperlipidemia -: DVT left leg -: tubal ligation -: Quad bypass 12/07/23 - Social History Smoking Status: Former smoker Alcohol use: No CD- Drugs: No Caffeine use: No Place of Residence: Home Review of Systems 10-point ROS is otherwise unremarkable Respiratory: Shortness of Breath Cardiovascular: Orthopnea, Edema Physical Examination - Vital Signs Temperature: 98.1 F Blood Pressure: 168/69 Pulse: 64 Respirations: 20 - Physical Exam General: Alert, In no apparent distress HEENT: Atraumatic, PERRLA, Mucous membr. moist/pink, EOMI, Sclerae nonicteric Neck: Supple, 2+ carotid pulse no bruit, No LAD, Without JVD or thyroid abnormality Respiratory: Clear to auscultation bilaterally, Normal air movement Cardiovascular: Regular rate/rhythm, Normal S1 S2, Edema (2+) Gastrointestinal: Normal bowel sounds, No tenderness Musculoskeletal: No tenderness Integumentary: No rashes Neurological: Normal gait, Normal speech, Normal strength at 5/5 x4 extr, Normal tone, Normal affect Lymphatics: No axilla or inguinal lymphadenopathy - Studies Laboratory Data (last 24 hrs) 12/21/23 12/21/23 15:10 15:10 WBC 8.30 Hgb 7.5 L Hct 23.9 L Plt Count 424 H Sodium 137 Potassium 5.3 H BUN 13 Creatinine 1.26 H Glucose 112 H Assessment and Plan - Problems (Diagnosis) (1) CHF exacerbation Current Visit: Yes Status: Acute Plan: As she has had a recent cardiac event will hold off echo for the 6 month. In the meantime. Will continue diuresis. Switch the losartan to entresto. Also aspirin, atorvastatin and metoprolol. Will have her seen by Cardiology Qualifiers: Heart failure type: unspecified Qualified Code(s): I50.9 - Heart failure, unspecified (2) Atrial fibrillation Current Visit: Yes Status: Chronic Plan: restart metoprolol, eliquis and amiodarone Qualifiers: Atrial fibrillation type: paroxysmal Qualified Code(s): I48.0 - Paroxysmal atrial fibrillation (3) Essential (primary) hypertension Current Visit: No Status: Chronic Plan: will start the patient on entresto (4) Hypothyroidism Current Visit: No Status: Chronic Plan: restart her levothyroxine. Will check a tsh Qualifiers: Hypothyroidism type: subclinical iodine-deficiency Qualified Code(s): E02 - Subclinical iodine-deficiency hypothyroidism (5) Essential tremor Current Visit: Yes Status: Chronic Plan: restart her home dose of primidone - Advance Directives Does patient have a Living Will: No Does patient have a Durable POA for Healthcare: No - Code Status/Comfort Care Code Status Assessed: Yes Code Status: Full Code Physician Review: Patient Assessed, Agree with Above Assessment and Plan Critical Care: No Time Spent Managing Pts Care (In Minutes): 50
[2023-12-21] MEDS: PRIMIDONE 50 MG TAB PO SCH (20:52)
[2023-12-21] MEDS: MELATONIN 3 MG TABLET PO SCH (20:53)
[2023-12-21] MEDS: ATORVASTATIN 40 MG TAB PO SCH (20:53)
[2023-12-21] MEDS: APIXABAN 5 MG TABLET PO SCH (20:53)
[2023-12-22] MEDS: FUROSEMIDE 40 MG/4 ML VIAL IV SCH (00:18)
[2023-12-22] MEDS ORDERED: METOPROLOL XL 50 MG TAB PO SCH (06:00)
[2023-12-22 06:40] LABS: Absolute Basophils 0.1 K/uL (0-0.5); Absolute Eosinophils 0.2 K/uL (0-0.5); Absolute Lymphocytes (CBC) 0.7 K/uL (0.7-4.9); Absolute Monocytes 0.6 K/uL (0.1-1.3); Absolute Neutrophil 4.9 K/uL (1.8-8.0); Basophils % 0.9 % (0-1.3); Hemoglobin 7.4 g/dL (12.0-15.0); Lymphocytes % 11.2 % (15.3-44.8); MCHC 32.3 g/dL (32.0-36.0); MCV 86.7 fL (80-100); MPV 7.6 fL (7.6-11.3); Monocytes % 8.6 % (3.3-12.3); Neutrophils % 76.3 % (41.7-73.7); Nucleated Red Blood Cells % 0.4 % (0-0); Platelets 409 thou/uL (152-406); RBC Red Blood Cell Count 2.65 M/uL (3.86-4.86); Red Cell Distribution Width 17.6 % (12.1-15.2)
[2023-12-22 07:06] LABS: Anion Gap 8.5 mEq/L (5.0-15.0); Potassium 3.5 mEq/L (3.5-5.1)
[2023-12-22] MEDS: LEVOTHYROXINE SOD 0.1 MG TAB PO SCH (08:37)
[2023-12-22] MEDS: ASPIRIN EC 81 MG TAB PO SCH (08:38)
[2023-12-22] MEDS: METOPROLOL TAR 25 MG TAB PO SCH (08:41)
[2023-12-22] MEDS ORDERED: AMIODARONE HCL 200 MG TAB PO SCH (09:00)
[2023-12-22] MEDS ORDERED: HOME MED 1 EA UNK (Escitalopram Oxalate [Lexapro] 5 MG Tablet) PO SCH (09:00)
[2023-12-22] MEDS ORDERED: AMLODIPINE 10 MG TAB PO SCH (09:00)
[2023-12-22] MEDS: HOME MED 1 EA UNK (Escitalopram Oxalate [Lexapro] 5 MG Tablet) PO SCH (09:33)
[2023-12-22 12:23] VITALS: BMI 30.9
--- NOTE | 2023-12-22 14:01 | EKG ---
Test Date: 2023-12-21 Test Time: 15:29:46 Molded Frames Assembler: BLU MEASUREMENT RESULTS: Intervals: Rate: 69 SC: 154 QRSD: 82 QT: 434 QTc: 465 [place]: P: 49 SC: 154 QRS: 60 T: -79 INTERPRETIVE STATEMENTS: Normal sinus rhythm T wave abnormality, consider inferior ischemia Abnormal ECG Compared to ECG 12/03/2023 22:48:20 T-wave abnormality now present Possible ischemia now present Atrial fibrillation no longer present Right bundle-branch block no longer present Electronically Signed On 12-22-23 13:58:36 CDT by Tima Sanders
[2023-12-22] MEDS: FUROSEMIDE 20 MG/ 2ML VIAL IV SCH (16:24)
[2023-12-22 16:35] VITALS: BP 136/64
[2023-12-22] MEDS ORDERED: ENOXAPARIN 40 MG/0.4 ML SQ SCH ×2 (17:00)
[2023-12-22 17:07] VITALS: TEMP 97.4
--- NOTE | 2023-12-22 17:31 | P.DS ---
Admission Date: 12/21/23 Discharge Date: 12/22/23 Primary Care Provider: Carmela Disposition: ROUTINE DISCHARGE Discharge Condition: GOOD Reason for Admission: CHF exacerbation - Problems (1) CHF exacerbation Current Visit: Yes Status: Acute Qualifiers: Heart failure type: unspecified Qualified Code(s): I50.9 - Heart failure, unspecified (2) Atrial fibrillation Current Visit: Yes Status: Chronic Qualifiers: Atrial fibrillation type: paroxysmal Qualified Code(s): I48.0 - Paroxysmal atrial fibrillation (3) Essential (primary) hypertension Current Visit: No Status: Chronic (4) Hypothyroidism Current Visit: No Status: Chronic Qualifiers: Hypothyroidism type: subclinical iodine-deficiency Qualified Code(s): E02 - Subclinical iodine-deficiency hypothyroidism (5) Essential tremor Current Visit: Yes Status: Chronic Brief History of Present Illness: Patient is an office patient of [employer]. She recently had a cabg in [facility]. She had some swelling of the legs last week. Was given some diuresis last week. 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 However she continue to get swelling and sob. The patient came to the ER and was found to have fluid overload. She is also on metoprolol, eliquis and amiodarone I will need to double check that in the office. The patient is resting in her room at this time Hospital Course: Patient was admitted for chf exacerbation. She was diuresised. Started on entresto. She was able to walk well today. Will discharge her home. Have her follow up in the office. Will recheck her kidney function in a month Vital Signs/Physical Exam: Temp Pulse Resp BP Pulse Ox 97.4 F 76 16 136/64 97 12/22/23 16:00 12/22/23 16:24 12/22/23 16:00 12/22/23 16:24 12/22/23 16:00 General: Alert, In no apparent distress HEENT: Atraumatic, PERRLA, EOMI Neck: Supple, JVD not distended Respiratory: Clear to auscultation bilaterally, Normal air movement Cardiovascular: Regular rate/rhythm, Normal S1 S2 Gastrointestinal: Normal bowel sounds, No tenderness Musculoskeletal: No tenderness Integumentary: No rashes Neurological: Normal speech, Normal tone, Normal affect Lymphatics: No axilla or inguinal lymphadenopathy Laboratory Data at Discharge: WBC 6.40 thou/uL (4.3-10.9) 12/22/23 06:00 Hgb 7.4 g/dL (12.0-15.0) L 12/22/23 06:00 Hct 23.0 % (36.0-45.0) L 12/22/23 06:00 Plt Count 409 thou/uL (152-406) H 12/22/23 06:00 Sodium 134 mEq/L (136-145) L 12/22/23 06:00 Potassium 3.5 mEq/L (3.5-5.1) D 12/22/23 06:00 BUN 14 mg/dL (7-18) 12/22/23 06:00 Creatinine 1.22 mg/dL (0.55-1.02) H 12/22/23 06:00 Glucose 104 mg/dL (74-106) 12/22/23 06:00 Triglycerides 88 mg/dL (<150) 12/22/23 06:00 Cholesterol 112 mg/dL (<200) 12/22/23 06:00 HDL Cholesterol 39 mg/dL (40-60) L 12/22/23 06:00 Cholesterol/HDL Ratio 2.87 12/22/23 06:00 Home Medications: Amlodipine [Norvasc*] 1 tab PO DAILY 12/04/23 Escitalopram Oxalate [Lexapro] 1 tab PO DAILY 12/04/23 Levothyroxine [Synthroid*] 1 tab PO DAILY 12/04/23 Losartan Potassium [Cozaar] 1 tab PO DAILY 12/04/23 Primidone [Mysoline *] 1 tab PO BEDTIME 12/04/23 Amiodarone HCl [Cordarone Tab] 200 mg PO BID 12/21/23 Apixaban [Eliquis] 5 mg PO BID 12/21/23 Aspirin [Aspirin EC 81 MG] 81 mg PO DAILY 12/21/23 Atorvastatin Calcium 40 mg PO BEDTIME 12/21/23 Docusate Sodium 1 tab PO DAILY 12/21/23 Gabapentin 100 mg PO TID 12/21/23 Melatonin 3 mg PO DAILY 12/21/23 Metoprolol Tartrate 25 mg PO DAILY 12/21/23 Furosemide 40 mg PO DAILY 5 Days #5 12/22/23 Sacubitril/Valsartan [Entresto 49 mg-51 mg Tablet] 1 tab PO BID 180 Days #90 tab 12/22/23 New Medications: Sacubitril/Valsartan [Entresto 49 mg-51 mg Tablet] 1 tab PO BID 180 Days #90 tab Furosemide 40 mg PO DAILY 5 Days #5 Diet: AHA Activity: Ad yonny Followup: Ochoa Casey MD [Primary Care Provider] - Time spent managing pt's care (in minutes): 20
--- NOTE | 2023-12-22 20:23 | CON ---
Date of Consultation: 12/22/2023 Reason For Consultation: Congestive heart failure. History Of Present Illness: This is a 73-year-old female evaluated recently after non-STEMI and requ ired a multivessel CABG at [facility] and she apparently has been having progressive lower extr emity edema and shortness of breath and orthopnea, came into the ER, found to be fluid overloaded, st arted on IV Lasix and feeling significantly better and wants to go home. Past Medical History: Hypertension, dyslipidemia, coronary artery disease, and DVT. Medications: Refer reconciliation sheet for detailed list. Allergies: NO KNOWN DRUG ALLERGIES. Past Surgical History: Coronary artery bypass surgery, tubal ligation. Family History: No premature coronary artery disease or cancer. Social History: Recent smoker. Does not drink, use any drugs. Review of Systems: All systems reviewed are negative except mentioned in HPI. Physical Examination: Vital Signs: Reviewed. Head and Neck: Pupils are equal, reactive to light. Intact eye movements. Positive JVD. No cervic al lymphadenopathy. Neck is supple. Thyroid is not enlarged. Lungs: Decreased breathing sounds with crackles on both bases. No accessory muscle use or muscle re traction. Heart: Regular rate and rhythm. No extra sounds. Abdomen: Soft, nontender. Bowel sounds positive. No organomegaly. No masses or hernia. No rigidi ty or rebound. Extremities: No clubbing or cyanosis. Positive edema. Neuro: Alert, awake, oriented x3. No acute focal deficits appreciated. Lymph Nodes: No cervical or axillary lymphadenopathy. Investigations: BUN 14, creatinine is 1.22, potassium was 5.3, down to 3.5. Hemoglobin 7.4. Assessment/recommendation: 1.Acute on chronic congestive heart failure exacerbation post CABG. Put her on Lasix 40 mg IV q.12 hours. Monitor BUN, creatinine, electrolytes. She appears to be doing much better, maybe another da y of diuresis and plan to go home tomorrow. Carefully monitor BUN, creatinine, electrolytes. 2.Atrial fibrillation, controlled. Continue current therapy including apixaban and metoprolol. 3.Dyslipidemia. Continue Lipitor. 4.Hypertension, pressure controlled. Thank you for the consult. /VINCE Voice ID: [id number] Report ID: [id number]
[2023-12-23] MEDS ORDERED: FUROSEMIDE 40 MG/4 ML VIAL IV SCH (09:00)
== END 2023-12-22 18:58 | disposition home or self-care (01) | DRG 293 ==
LOC: ER 14:42 → 2ND 16:13
PROVIDERS: ADMIT Internal Medicine; ATTEND Internal Medicine
DX: I11.0 Hypertensive heart disease with heart failure (principal); I50.9 Heart failure, unspecified; E87.6 Hypokalemia; E87.5 Hyperkalemia; E78.5 Hyperlipidemia, unspecified; I48.0 Paroxysmal atrial fibrillation; E02 Subclinical iodine-deficiency hypothyroidism; E87.70 Fluid overload, unspecified; I25.10 Atherosclerotic heart disease of native coronary artery without angina pectoris; I25.2 Old myocardial infarction; Z95.1 Presence of aortocoronary bypass graft; Z98.51 Tubal ligation status; Z79.01 Long term (current) use of anticoagulants; Z87.891 Personal history of nicotine dependence; Z86.718 Personal history of other venous thrombosis and embolism; Z79.890 Hormone replacement therapy; Z79.899 Other long term (current) drug therapy
CPT/HCPCS: 36415; 71045; 80048; 80061; 83880; 84484; 85025; 93005; 96374; 99285; J1940

== ENCOUNTER 2023-12-30 14:10 | Emergency (ER) | payer OTHER ==
[2023-12-30 15:24] LABS: Absolute Eosinophils 0.3 K/uL (0-0.5); Absolute Lymphocytes (CBC) 0.7 K/uL (0.7-4.9); Absolute Monocytes 0.5 K/uL (0.1-1.3); Basophils % 0.7 % (0-1.3); Eosinophils % 5.9 % (0-4.4); Hemoglobin 7.2 g/dL (12.0-15.0); Lymphocytes % 13.1 % (15.3-44.8); MCH 26.7 pg (27.0-35.0); MCHC 31.4 g/dL (32.0-36.0); MCV 84.9 fL (80-100); MPV 7.1 fL (7.6-11.3); Monocytes % 9.3 % (3.3-12.3); Nucleated Red Blood Cells % 0.2 % (0-0); Platelets 341 thou/uL (152-406); RBC Red Blood Cell Count 2.71 M/uL (3.86-4.86); Red Cell Distribution Width 17.8 % (12.1-15.2)
--- NOTE | 2023-12-30 15:28 | RAD REPORT ---
EXAM DESCRIPTION: USExtrem Venous W Compress Bil12/30/2023 3:00 pm CLINICAL HISTORY: Leg pain COMPARISON: November 2023 FINDINGS: Echogenic material consistent with acute thrombus has developed within the left common fem oral and left superficial femoral veins. The veins are partially compressible. The right common femoral, right superficial femoral, greater saphenous, popliteal and posterior tibia l veins are compressible and demonstrate augmentation. Doppler demonstrates good flow. Grayscale, color and spectral analysis performed on all vessels IMPRESSION: Acute thrombus left common femoral and left posterior tibial veins
[2023-12-30 15:44] LABS: Albumin/Globulin Ratio 0.8 (1.1-1.8); Anion Gap 7.1 mEq/L (5.0-15.0); Bilirubin Total 0.5 mg/dL (0.2-1.0); Globulin 3.6 g/dL (2.3-3.5); Magnesium 2.2 mg/dL (1.6-2.4); Potassium 4.1 mEq/L (3.5-5.1); Protein, Total 6.6 g/dL (6.4-8.2); Troponin High Sensitivity 12.4 pg/mL (<58.9)
--- NOTE | 2023-12-30 15:45 | RAD REPORT ---
EXAM DESCRIPTION: Donna Single View12/30/2023 3:08 pm CLINICAL HISTORY: Shortness breath COMPARISON: December 25, 2023 FINDINGS: Small to moderate left pleural effusion appears mildly diminished in size. Left basilar at electasis Right lung appears clear of acute infiltrate. Heart is mildly to moderately enlarged. Postsurgical changes involve the chest
--- NOTE | 2023-12-30 16:33 | RAD REPORT ---
EXAM DESCRIPTION: CT - Chest For Pe Angio - 12/30/2023 4:10 pm CLINICAL HISTORY: sob COMPARISON: None. TECHNIQUE: Dynamically enhanced axial 3 mm thick images of the chest were obtained during administra tion of 100 mL Isovue 370 IV contrast. Coronal and oblique reconstruction images were generated and r eviewed. Exam utilizes a protocol for optimal evaluation of pulmonary arterial tree. Maximum intensity projections 3D imaging was utilized All CT scans are performed using dose optimization technique as appropriate and may include automated exposure control or mA/KV adjustment according to patient size. FINDINGS: A pulmonary embolus is not seen. A thoracic aortic aneurysm is not noted. A pericardial effusion is not seen. Small to moderate left pleural effusion with left lower lobe opacity IMPRESSION: Negative for a pulmonary embolism. Small to moderate left pleural effusion Left lower lobe opacity may represent atelectasis or a combination of atelectasis and pneumonia
--- NOTE | 2023-12-30 16:57 | ER ---
Nurse's Notes [facility] Name: Griselda Barksdale Age: 73 yrs Sex: Female : 1950 Arrival Date: 12/30/2023 Time: 14:10 Bed 6 Private MD: Diagnosis: Anemia, unspecified;Acute embolism and thrombosis of deep veins of lower extremity-left leg Presentation: 12/29 14:31 Chief complaint: Patient states: back pain and bilateral leg swelling. Coronavirus as6 screen: At this time, the client does not indicate any symptoms associated with coronavirus-19. Ebola Screen: No symptoms or risks identified at this time. Initial Sepsis Screen: Does the patient meet any 2 criteria? No. Patient's initial sepsis screen is negative. Does the patient have a suspected source of infection? No. Patient's initial sepsis screen is negative. Risk Assessment: Do you want to hurt yourself or someone else? Patient reports no desire to harm self or others. Onset of symptoms was December 29, 2023. 14:31 Acuity: FILEMON 3 as6 14:31 Method Of Arrival: Wheelchair as6 Historical: - Allergies: 14:30 No Known Allergies; as6 - PMHx: 14:30 DVT Left leg; Hyperlipidemia; Hypertension; Hypothyroidism; Myocardial infarction; as6 - PSHx: 14:30 Heart Bypass December 06; Ligation of fallopian tube; as6 - Immunization history:: Adult Immunizations up to date. - Infectious Disease History:: Denies. - Social history:: Smoking status: Patient denies any tobacco usage or history of. Screenin:40 [facility] ED Fall Risk Assessment (Adult) History of falling in the last 3 months, rs5 including since admission No falls in past 3 months (0 pts) Confusion or Disorientation No (0 pts) Intoxicated or Sedated No (0 pts) Impaired Gait Yes (1 pt) Mobility Assist Device Used Yes (1 pt) Altered Elimination No (0 pt) Score/Fall Risk Level 0 - 2 = Low Risk Oriented to surroundings, Maintained a safe environment. Abuse screen: Denies threats or abuse. Nutritional screening: No deficits noted. Tuberculosis screening: No symptoms or risk factors identified. Assessment: 14:40 General: Appears in no apparent distress. comfortable, Behavior is calm, cooperative. rs5 Pain: Complains of pain in back Pain currently is 2 out of 10 on a pain scale. Quality of pain is described as aching, Is intermittent. Neuro: Level of Consciousness is awake, alert, obeys commands, Oriented to person, place, time, situation. Cardiovascular: Patient's skin is warm and dry. Rhythm is regular. Respiratory: Airway is patent Respiratory effort is even, unlabored, Respiratory pattern is regular, symmetrical. GI: Abdomen is round non-distended, Abd is soft and non tender X 4 quads. : No signs and/or symptoms were reported regarding the genitourinary system. EENT: No signs and/or symptoms were reported regarding the EENT system. Derm: Skin is intact, Skin is pink, warm \T\ dry. Musculoskeletal: Range of motion: intact in all extremities, Swelling present in lower extremitites bilat. 15:58 Reassessment: Patient and/or family updated on plan of care and expected duration. Pain rs5 level reassessed. Patient is alert, oriented x 3, equal unlabored respirations, skin warm/dry/pink. Patient states feeling better. 16:45 Reassessment: No changes from previously documented assessment. rs5 Vital Signs: 14:31 BP 131 / 61; Pulse 72; Resp 20 S; Temp 97.8(TE); Pulse Ox 98% on R/A; Weight 94.35 kg as6 (R); Height 5 ft. 8 in. (R); Pain 0/10; 16:28 BP 135 / 66; Pulse 75; Resp 18; Pulse Ox 98% on R/A; rs5 17:01 BP 133 / 68; Pulse 78; Resp 17; Pulse Ox 99% on R/A; rs5 14:31 Body Mass Index 31.63 (94.35 kg, 172.72 cm) as6 14:31 Pain Scale: Adult as6 ED Course: 14:15 Patient arrived in ED. mg5 14:16 Elaine An FNP-C is PHCP. kb 14:16 Derrick Walsh MD is Attending Physician. kb 14:30 Arm band placed on. as6 14:32 Triage completed. as6 14:39 Abdulaziz Carmona, RN is Primary Nurse. rs5 14:40 Patient has correct armband on for positive identification. Bed in low position. Call rs5 light in reach. Side rails up X2. 14:40 No provider procedures requiring assistance completed. rs5 15:02 US Extremity Venous W Compression Edson In Process Unspecified. EDMS 15:07 XRAY Chest (1 view) In Process Unspecified. EDMS 15:20 CBC with Diff Sent. jg11 15:20 Magnesium Sent. jg11 15:20 NT PRO-BNP Sent. jg11 15:20 Troponin HS Sent. jg11 15:20 Initial lab(s) drawn, by me, sent to lab. EKG done, by ED staff. Inserted saline lock: jg11 20 gauge in right wrist, using aseptic technique. Blood collected. 16:12 CT Chest For PE Angio In Process Unspecified. EDMS 17:15 IV discontinued, intact, bleeding controlled, No redness/swelling at site. Pressure rs5 dressing applied. Administered Medications: No medications were administered Medication: 16:28 VIS not applicable for this client. rs5 Outcome: 16:56 Discharge ordered by . kb 17:15 Patient left the ED. rs5 17:15 Discharged to home via wheelchair, with family, rs5 17:15 Condition: stable 17:15 Discharge instructions given to patient, family, Instructed on discharge instructions, follow up and referral plans. 17:15 Instructed on medication usage, Demonstrated understanding of instructions, follow-up care, medications, Prescriptions given X 1, Signatures: Dispatcher [employer] Elaine Peters, NET DEVELOPER PROGRAMMER-C NET DEVELOPER PROGRAMMER-CkCarlo Farris RN RN as6 Abdulaziz Carmona RN RN [email or web address] Safia Hurley mg5 Jj Zaman jg11 Corrections: (The following items were deleted from the chart) 17:30 17:29 Patient left the ED. rs5 rs5
--- NOTE | 2023-12-30 16:57 | EDPHYS ---
Physician Documentation [facility] Name: Griselda Barksdale Age: 73 yrs Sex: Female : 1950 Arrival Date: 12/30/2023 Time: 14:10 Bed 6 Private MD: ED Physician Derrick Walsh HPI: 12/29 14:26 This 73 yrs old Female presents to ER via Unassigned with complaints of Sent By Dr. potts 14:26 Pt is a 73 year old female who presents for abnormal labs. States she had a follow up kb with cardiology last week and had blood work done. Was called today and told to come to the ER for abnormal labs. Denies n/v. Reports shortness of breath on exertion that started after CABG that was done on 12/07/23. States she has had leg swelling intermittently since her surgery as well. . Historical: - Allergies: 14:30 No Known Allergies; as6 - PMHx: 14:30 DVT Left leg; Hyperlipidemia; Hypertension; Hypothyroidism; Myocardial infarction; as6 - PSHx: 14:30 Heart Bypass December 06; Ligation of fallopian tube; as6 - Immunization history:: Adult Immunizations up to date. - Infectious Disease History:: Denies. - Social history:: Smoking status: Patient denies any tobacco usage or history of. ROS: 14:26 Constitutional: As per HPI kb Exam: 15:17 Constitutional: This is a well developed, well nourished patient who is awake, alert, kb and in no acute distress. Head/Face: Normocephalic, atraumatic. ENT: Moist Mucous membranes Cardiovascular: Regular rate Respiratory: Respirations even and unlabored. No increased work of breathing. Talking in full sentences Skin: Warm, dry with normal turgor. Normal color. MS/ Extremity: Pulses equal, no cyanosis. Neurovascular intact. Full, normal range of motion. Neuro: Awake and alert, GCS 15, oriented to person, place, time, and situation. Moves all extremities. Normal gait. 15:52 ECG was reviewed by the Attending Physician. Vital Signs: 14:31 BP 131 / 61; Pulse 72; Resp 20 S; Temp 97.8(TE); Pulse Ox 98% on R/A; Weight 94.35 kg as6 (R); Height 5 ft. 8 in. (R); Pain 0/10; 16:28 BP 135 / 66; Pulse 75; Resp 18; Pulse Ox 98% on R/A; rs5 17:01 BP 133 / 68; Pulse 78; Resp 17; Pulse Ox 99% on R/A; rs5 14:31 Body Mass Index 31.63 (94.35 kg, 172.72 cm) as6 14:31 Pain Scale: Adult as6 MDM: 14:16 Patient medically screened. kb 15:17 Data reviewed: vital signs, nurses notes. kb 16:53 Differential diagnosis: CHF, PE, DVT. Consideration of Admission/Observation Escalation kb of care including admission/observation considered. admission considered for anemia and DVT, but pt is on eliquis and does not want to be admitted. States she will follow up with PCP and employee counselor. . Historians other than the Patient: Daughter/Son: daughter. Counseling: I had a detailed discussion with the patient and/or guardian regarding the historical points, exam findings, and any diagnostic results supporting the discharge/admit diagnosis, lab results, radiology results, the need for outpatient follow up, a employee counselor, a family practitioner, to return to the emergency department if symptoms worsen or persist or if there are any questions or concerns that arise at home. 16:56 External Records Reviewed: previous admission record reviewed. Pt Hgb today is similar kb to previous admission. Pt denies any bleeding or dark stools. 12/29 14:30 Order name: CBC with Diff; Complete Time: 15:44 kb 12/29 14:30 Order name: Magnesium; Complete Time: 15:46 kb 12/29 14:30 Order name: NT PRO-BNP; Complete Time: 15:46 kb 12/29 14:30 Order name: Troponin HS; Complete Time: 15:47 kb 12/29 14:30 Order name: CMP; Complete Time: 15:46 kb 12/29 14:30 Order name: US Extremity Venous W Compression Edson; Complete Time: 15:29 kb 12/29 14:30 Order name: XRAY Chest (1 view); Complete Time: 15:47 kb 12/29 15:47 Order name: CT Chest For PE Angio; Complete Time: 16:35 kb 12/29 14:30 Order name: EKG; Complete Time: 14:30 kb 12/29 14:30 Order name: Cardiac monitoring; Complete Time: 15:20 kb 12/29 14:30 Order name: EKG - Nurse/Tech; Complete Time: 15:20 kb 12/29 14:30 Order name: IV Saline Lock; Complete Time: 15:20 kb 12/29 14:30 Order name: Labs collected and sent; Complete Time: 15:20 kb 12/29 14:30 Order name: O2 Per Protocol; Complete Time: 15:41 kb 12/29 14:30 Order name: O2 Sat Monitoring; Complete Time: 15:20 kb EC:52 Rate is 70 beats/min. Rhythm is regular. QRS Wasta is Normal. MO interval is normal at kb 150 msec. QRS interval is normal at 84 msec. QT interval is normal at 473 msec. Administered Medications: No medications were administered Disposition: 17:50 Co-signature as Attending Physician, Derrick Walsh MD I reviewed the patient's care rn provided by the Advanced Practice Provider and agree with the diagnosis and treatment plan. Disposition Summary: 12/30/23 16:56 Discharge Ordered Notes: Location: Home kb Condition: Stable kb Diagnosis - Anemia, unspecified kb - Acute embolism and thrombosis of deep veins of lower extremity - left leg kb Followup: kb - With: Emergency Department - When: As needed - Reason: Worsening of condition Followup: kb - With: Private Physician - When: 2 - 3 days - Reason: Recheck today's complaints, Continuance of care, Re-evaluation by your physician Discharge Instructions: - Discharge Summary Sheet kb - Anemia kb - Deep Vein Thrombosis kb Forms: - Medication Reconciliation Form kb - Antibiotic Education kb - Prescription Opioid Use kb - Patient Portal Instructions kb - Leadership Thank You Letter kb Prescriptions: - Eliquis 5 mg Oral tablet - take 2 tablet ORAL route every 12 hours for 7 days; 28 tablet; Refills: 0, kb Product Selection Permitted Signatures: Dispatcher [employer] EDPR Elaine An, BLEACH BOILER PACKER-C BLEACH BOILER PACKER-Derrick Multani MD MD rn Slawson, Ashby RN RN as6 Abdulaziz Carmona RN RN rs5 Corrections: (The following items were deleted from the chart) 15:18 14:26 Pt is a 73 year old female who presents for abnormal labs. States she had a kb follow up with cardiology last week and had blood work done. Was called today and told to come to the ER for abnormal labs. Denies n/v. Reports shortness of breath on exertion that started after CABG that was done on 12/07/23. . kb
[2023-12-30 17:47] VITALS: BP 135/66; TEMP 97.8; O2SAT 98
== END 2023-12-30 17:29 | disposition home or self-care (01) ==
LOC: ER 14:10
DX: D64.9 Anemia, unspecified (principal); I82.402 Acute embolism and thrombosis of unspecified deep veins of left lower extremity; I10 Essential (primary) hypertension; Z95.1 Presence of aortocoronary bypass graft
CPT/HCPCS: 85025; 36415; 83735; 84484; 80053; 83880; 71275; 71045; 93970; Q9967; 93005

== ENCOUNTER 2024-01-10 10:02 | Inpatient (IN) | payer OTHER ==
[2024-01-10 10:43] LABS: Absolute Basophils 0.1 K/uL (0-0.5); Absolute Eosinophils 0.5 K/uL (0-0.5); Absolute Lymphocytes (CBC) 0.6 K/uL (0.7-4.9); Absolute Monocytes 0.5 K/uL (0.1-1.3); Absolute Neutrophil 4.1 K/uL (1.8-8.0); Eosinophils % 7.8 % (0-4.4); Hematocrit 22.7 % (36.0-45.0); Hemoglobin 6.7 g/dL (12.0-15.0); Lymphocytes % 11.1 % (15.3-44.8); MCH 24.5 pg (27.0-35.0); MCHC 29.5 g/dL (32.0-36.0); MPV 7.4 fL (7.6-11.3); Neutrophils % 71.1 % (41.7-73.7); Nucleated Red Blood Cells % 0.4 % (0-0); Platelets 354 thou/uL (152-406); RBC Red Blood Cell Count 2.73 M/uL (3.86-4.86); Red Cell Distribution Width 19.7 % (12.1-15.2)
--- NOTE | 2024-01-10 10:55 | RAD REPORT ---
EXAM DESCRIPTION: US - Extremity Venous Uni Ltd - 01/10/2024 10:44 am CLINICAL HISTORY: SWELLING COMPARISON: Extrem Venous W Compress Edson dated 12/30/2023; Extremity Venous Uni Ltd dated 12/03/2023 FINDINGS: Color Doppler, grayscale, and spectral analysis was performed. Incomplete compressibility of the common femoral vein, femoral vein, and distal popliteal vein. Eccen tric echogenic thrombus is present. Similar clot burden compared with 12/30/2023. IMPRESSION: Nonocclusive thrombus in the left common femoral vein, femoral vein, and distal poplitea l vein with similar clot burden compared with 12/30/2023.
[2024-01-10 11:03] LABS: ALT/SGPT 20 U/L (13-56); Albumin 3.2 g/dL (3.4-5.0); Albumin/Globulin Ratio 0.9 (1.1-1.8); Alkaline Phosphatase 98 U/L (45-117); Anion Gap 11.7 mEq/L (5.0-15.0); BUN Blood Urea Nitrogen 16 mg/dL (7-18); Bicarbonate 26 mEq/L (21-32); Bilirubin Direct 0.2 mg/dL (0-0.2); Bilirubin Indirect, Calculated 0.5 mg/dL (0.2-0.8); Bilirubin Total 0.7 mg/dL (0.2-1.0); Globulin 3.5 g/dL (2.3-3.5); Glomerular Filtration Rate 39 ml/min (=/>90); Glucose Level 116 mg/dL (74-106); Magnesium 2.4 mg/dL (1.6-2.4); Potassium 4.7 mEq/L (3.5-5.1); Protein, Total 6.7 g/dL (6.4-8.2); Sodium Level 137 mEq/L (136-145); Troponin High Sensitivity 10.5 pg/mL (<58.9)
[2024-01-10 11:10] LABS: AST/SGOT < 10 U/L (15-37)
--- NOTE | 2024-01-10 11:57 | RAD REPORT ---
EXAM DESCRIPTION: RAD - Chest Single View - 01/10/2024 11:27 am CLINICAL HISTORY: near syncope COMPARISON: Chest Single View dated 12/30/2023; Chest Pa And Lat (2 Views) dated 12/25/2023; Chest Sin gle View dated 12/21/2023; Chest Single View dated 12/03/2023; Chest For Pe Angio dated 12/30/2023 FINDINGS: Lines: None. Lungs: Airspace disease at the left lung base. Pleural: Left pleural effusion. Cardiac: Similar size and configuration. Mediastinum: Within normal limits. Bones: No acute fractures. Sternotomy. Other: None IMPRESSION: Unchanged left pleural effusion with underlying atelectasis and/or pneumonia.
[2024-01-10] MEDS ORDERED: CEFTRIAXONE 1000 MG/VIAL ONE (13:38)
--- NOTE | 2024-01-10 13:40 | EDPHYS ---
Physician Documentation [facility] Name: Griselda Barksdale Age: 73 yrs Sex: Female : 1950 Arrival Date: 01/10/2024 Time: 10:02 Bed 15 Private MD: ED Physician Anshu Reyes HPI: 01/09 12:59 This 73 yrs old Female presents to ER via Ambulatory with complaints of Low BP, rt Dizziness. 12:59 Patient presents to the ED with near syncope, worse when she stands up. Patient is rt reportedly being treated for DVT with Eliquis. Denies any bleeding, melena, rectal bleeding. Denies other acute complaints, symptoms are moderate in severity, no other aggravating or alleviating factors.. Historical: - Allergies: : No Known Drug Allergies; hb - PMHx: : DVT Left leg; Hyperlipidemia; Hypertension; Hypothyroidism; Myocardial infarction; hb - PSHx: : Heart Bypass December 06; Ligation of fallopian tube; hb - Immunization history:: Adult Immunizations up to date. - Infectious Disease History:: Denies. - Social history:: Smoking status: Patient denies any tobacco usage or history of. - Family history:: not pertinent. ROS: 12:59 Constitutional: Negative for fever, chills, and weight loss, Cardiovascular: Negative rt for chest pain, palpitations, and edema, Respiratory: Negative for shortness of breath, cough, wheezing, and pleuritic chest pain, Abdomen/GI: Negative for abdominal pain, nausea, vomiting, diarrhea, and constipation, Skin: Negative for injury, rash, and discoloration, Neuro: Negative for headache, weakness, numbness, tingling, and seizure, 12:59 Neuro: Positive for near syncope, Exam: 12:59 Constitutional: This is a well developed, well nourished patient who is awake, alert, rt and in no acute distress. Head/Face: Normocephalic, atraumatic. Chest/axilla: Normal chest wall appearance and motion. Nontender with no deformity. No lesions are appreciated. Cardiovascular: Regular rate and rhythm with a normal S1 and S2. No gallops, murmurs, or rubs. Normal PMI, no JVD. No pulse deficits. Respiratory: Lungs have equal breath sounds bilaterally, clear to auscultation and percussion. No rales, rhonchi or wheezes noted. No increased work of breathing, no retractions or nasal flaring. Abdomen/GI: Soft, non-tender, with normal bowel sounds. No distension or tympany. No guarding or rebound. No evidence of tenderness throughout. Skin: Warm, dry with normal turgor. Normal color with no rashes, no lesions, and no evidence of cellulitis. MS/ Extremity: Pulses equal, no cyanosis. Neurovascular intact. Full, normal range of motion. Neuro: Awake and alert, GCS 15, oriented to person, place, time, and situation. Cranial nerves II-XII grossly intact. Motor strength 5/5 in all extremities. Sensory grossly intact. Cerebellar exam normal. Normal gait. 12:59 ECG was reviewed by the Attending Physician. Vital Signs: 10:16 BP 111 / 67; Pulse 60; Resp 15; Temp 97.8(TE); Pulse Ox 99% on R/A; Pain 3/10; hb 11:25 BP 128 / 54 Supine; Pulse 63; rs5 11:27 BP 121 / 49 Sitting; Pulse 64; rs5 11:29 BP 113 / 56 Standing; Pulse 69; rs5 14:00 BP 124 / 59; Pulse 66; Resp 18; Pulse Ox 99% on R/A; rs5 16:32 BP 141 / 50; Pulse 58; Resp 18; Temp 98; Pulse Ox 99% on R/A; rs5 16:40 BP 136 / 53; Pulse 58; Resp 18; Temp 98(O); Pulse Ox 99% on R/A; rs5 16:45 BP 139 / 52; Pulse 57; Resp 17; Temp 98(O); Pulse Ox 100% ; rs5 16:50 BP 138 / 55; Pulse 57; Resp 17; Temp 98(O); Pulse Ox 100% on R/A; rs5 10:16 Pain Scale: Adult hb MDM: 10:10 Patient medically screened. rt 13:40 Differential diagnosis: Anemia, dysrhythmia, dehydration, DVT. Data reviewed: vital rt signs, nurses notes, lab test result(s), EKG, radiologic studies. Consideration of Admission/Observation Patient was admitted/placed on observation. Management of patient was discussed with the following: Hospitalist: Agrees to admit. I considered the following discharge prescriptions or medication management in the emergency department Medications were administered in the Emergency Department. See MAR. Independent interpretation of the following test(s) in the Emergency Department X-Ray: My interpretation is Pleural effusion syndrome interpretation of x-ray images. Test considered but Not performed: CT: Low suspicion for PE, CT angiogram not indicated. Care significantly affected by the following chronic conditions: Hypertension. Counseling: I had a detailed discussion with the patient and/or guardian regarding the historical points, exam findings, and any diagnostic results supporting the discharge/admit diagnosis, lab results, radiology results, the need for further work-up and treatment in the hospital. Response to treatment: the patient's symptoms have mildly improved after treatment. 01/09 10:20 Order name: Basic Metabolic Panel; Complete Time: 11:11 rt 01/09 10:20 Order name: CBC with Diff; Complete Time: 11:11 rt 01/09 10:20 Order name: LFT's; Complete Time: 11:11 rt 01/09 10:20 Order name: Magnesium; Complete Time: 11:11 rt 01/09 10:20 Order name: Troponin HS; Complete Time: 11:11 rt 01/09 12:51 Order name: Type And Screen rt 01/09 13:37 Order name: Packed RBC Leukored [facility] 01/09 14:25 Order name: ABO/RH no charge; Complete Time: 14:31 [facility] 01/09 16:03 Order name: Ferritin [facility] 01/09 16:03 Order name: Iron [facility] 01/09 16:03 Order name: Ferritin [facility] 01/09 16:03 Order name: Haptoglobin [facility] 01/09 16:03 Order name: Iron [facility] 01/09 16:03 Order name: Thyroid Stimulating Hormone [facility] 01/09 16:03 Order name: CBC with Automated Diff [facility] 01/09 16:03 Order name: CBC with Automated Diff [facility] 01/09 16:03 Order name: Comprehensive Metabolic Panel [facility] 01/09 16:03 Order name: Comprehensive Metabolic Panel [facility] 01/09 16:03 Order name: Lipid Profile [facility] 01/09 16:03 Order name: Lipid Profile [facility] 01/09 16:03 Order name: Magnesium [facility] 01/09 16:03 Order name: Magnesium [facility] 01/09 16:03 Order name: Phosphorus [facility] 01/09 16:03 Order name: Phosphorus [facility] 01/09 16:03 Order name: Protime (+INR) EDMS 01/09 16:03 Order name: Protime (+INR) EDMS 01/09 16:03 Order name: PTT, Activated Partial Thromb EDMS 01/09 16:03 Order name: PTT, Activated Partial Thromb EDMS 01/09 10:20 Order name: XRAY Chest (1 view); Complete Time: 12:20 rt 01/09 10:20 Order name: Extremity Venous Uni Ltd US; Complete Time: 11:11 rt 01/09 16:05 Order name: Echo with Doppler EDMS 01/09 10:20 Order name: EKG; Complete Time: 10:21 rt 01/09 10:20 Order name: Cardiac monitoring; Complete Time: 10:33 rt 01/09 10:20 Order name: EKG - Nurse/Tech; Complete Time: :33 rt 01/09 10:20 Order name: IV Saline Lock; Complete Time: 10: rt 01/09 10:20 Order name: Labs collected and sent; Complete Time: : rt 01/09 10:20 Order name: O2 Per Protocol; Complete Time: 10:33 rt 01/09 10:20 Order name: O2 Sat Monitoring; Complete Time: 10: rt 01/09 10:20 Order name: Orthostatics; Complete Time: 11:32 rt EC:59 Rate is 63 beats/min. Rhythm is regular, Normal Sinus Rhythm with No ectopy. QRS Seaman rt is Normal. MA interval is normal. QRS interval is normal. QT interval is normal. No Q waves. T waves are Normal. No ST changes noted. Administered Medications: 13:15 Drug: Rocephin IV 1 grams IV at calculated rate once; Given slow IV push per pharmacy rs5 instructions Route: IV; Rate: calculated rate; Site: left antecubital; 13:30 Follow up: Response: No adverse reaction rs5 Disposition Summary: 01/10/24 13:40 Hospitalization Ordered Notes: Hospitalization Status: Inpatient Admission rt Provider: Steff Valladares rt Location: Telemetry/MedSurg (Inpatient) rt Condition: Stable rt Problem: an ongoing problem rt Symptoms: have improved rt Bed/Room Type: Standard rt Room Assignment: 201(01/10/24 16:18) eb Diagnosis - Symptomatic anemia rt - DVT of left lower extremity rt Forms: - Medication Reconciliation Form rt - SBAR form rt - Leadership Thank You Letter rt Critical care time excluding procedures: 13:42 Critical care time: Bedside Care: 30 minutes, Consultation: 5 minutes. Total time: 35 rt minutes Signatures: Dispatcher [employer] EDMS LyubovRadha, VIDEO PRODUCTION SPECIALIST-C VIDEO PRODUCTION SPECIALIST-Csnw Valerie Steele, RN RN hb Christina Cotto Anshu Reyes MD MD rt Abdulaziz Carmona RN RN rs5 Corrections: (The following items were deleted from the chart) 10:18 10:18 PSHx: Heart Bypass December 06; hb hb 10:21 10:21 BASIC METABOLIC PANEL+C.LAB.BRZ ordered. EDMS EDMS 10:21 10:21 CBC+H.LAB.BRZ ordered. EDMS EDMS 10:21 10:21 HEPATIC FUNCTION+C.LAB.BRZ ordered. EDMS EDMS 10:21 10:21 MAGNESIUM+C.LAB.BRZ ordered. EDMS EDMS 10:21 10:21 Troponin High Sensitivity+C.LAB.BRZ ordered. EDMS EDMS 12:59 12:59 BB Add On+BB.LAB.BRZ ordered. EDMS EDMS 16:18 13:40 rt eb
--- NOTE | 2024-01-10 13:40 | ER ---
Nurse's Notes [facility] Name: Griselda Barksdale Age: 73 yrs Sex: Female : 1950 Arrival Date: 01/10/2024 Time: 10:02 Bed 15 Private MD: Diagnosis: Symptomatic anemia;DVT of left lower extremity Presentation: 01/09 10:16 Chief complaint: Dizziness when standing x 1 week, BP 112/50 this morning. Had CABG hb 12/06. Coronavirus screen: At this time, the client does not indicate any symptoms associated with coronavirus-19. Ebola Screen: No symptoms or risks identified at this time. Initial Sepsis Screen: Does the patient meet any 2 criteria? No. Patient's initial sepsis screen is negative. Does the patient have a suspected source of infection? No. Patient's initial sepsis screen is negative. Risk Assessment: Do you want to hurt yourself or someone else? Patient reports no desire to harm self or others. Onset of symptoms was January 03, 2024. 10:16 Method Of Arrival: Ambulatory hb 10:16 Acuity: FILEMON 3 hb Triage Assessment: 10:18 General: Appears in no apparent distress. Behavior is calm, cooperative. Pain: hb Complains of pain in back Pain currently is 3 out of 10 on a pain scale. Neuro: Level of Consciousness is awake, alert, obeys commands, Oriented to person, place, time, situation. Cardiovascular: Patient's skin is warm and dry. Respiratory: Respiratory effort is even, unlabored, Respiratory pattern is regular, symmetrical. Historical: - Allergies: 10:18 No Known Drug Allergies; hb - PMHx: 10:18 DVT Left leg; Hyperlipidemia; Hypertension; Hypothyroidism; Myocardial infarction; hb - PSHx: 10:18 Heart Bypass December 06; Ligation of fallopian tube; hb - Immunization history:: Adult Immunizations up to date. - Infectious Disease History:: Denies. - Social history:: Smoking status: Patient denies any tobacco usage or history of. - Family history:: not pertinent. Screenin:07 [facility] ED Fall Risk Assessment (Adult) History of falling in the last 3 months, rs5 including since admission No falls in past 3 months (0 pts) Confusion or Disorientation No (0 pts) Intoxicated or Sedated No (0 pts) Impaired Gait No (0 pts) Mobility Assist Device Used No (0 pt) Altered Elimination No (0 pt) Score/Fall Risk Level 0 - 2 = Low Risk Oriented to surroundings, Maintained a safe environment. Abuse screen: Denies threats or abuse. Nutritional screening: No deficits noted. Tuberculosis screening: No symptoms or risk factors identified. Assessment: 10:08 General: Appears in no apparent distress. comfortable, Behavior is calm, cooperative. rs5 Pain: Denies pain. Neuro: Level of Consciousness is awake, alert, obeys commands, Oriented to person, place, time, situation. Neuro: Reports dizziness when moving from sitting position to standing position. Cardiovascular: Patient's skin is warm and dry. Rhythm is regular. Respiratory: Airway is patent Respiratory effort is even, unlabored, Respiratory pattern is regular, symmetrical. GI: Abdomen is round non-distended, Abd is soft and non tender X 4 quads. : No signs and/or symptoms were reported regarding the genitourinary system. EENT: No signs and/or symptoms were reported regarding the EENT system. Derm: Skin is intact, Skin is pink, warm \T\ dry. Musculoskeletal: Range of motion: intact in all extremities. 11:15 Reassessment: Patient and/or family updated on plan of care and expected duration. Pain rs5 level reassessed. Patient is alert, oriented x 3, equal unlabored respirations, skin warm/dry/pink. 11:35 Reassessment: to bedside for orthostatics, pt denies dizziness at this moment. rs5 12:25 Reassessment: No changes from previously documented assessment. rs5 13:39 Reassessment: Patient and/or family updated on plan of care and expected duration. Pain rs5 level reassessed. Patient is alert, oriented x 3, equal unlabored respirations, skin warm/dry/pink. 15:02 Reassessment: Patient and/or family updated on plan of care and expected duration. Pain rs5 level reassessed. Patient is alert, oriented x 3, equal unlabored respirations, skin warm/dry/pink. 16:55 Reassessment: Patient and/or family updated on plan of care and expected duration. Pain rs5 level reassessed. Patient is alert, oriented x 3, equal unlabored respirations, skin warm/dry/pink. to bedside for blood transfusion, transfusion started at 50 ml/hr for first 15 min, remained with patient for first 15 min. no adverse reaction noted. Rate increased to 125 ml/hr. see paper charting for more information. Vital Signs: 10:16 BP 111 / 67; Pulse 60; Resp 15; Temp 97.8(TE); Pulse Ox 99% on R/A; Pain 3/10; hb 11:25 BP 128 / 54 Supine; Pulse 63; rs5 11:27 BP 121 / 49 Sitting; Pulse 64; rs5 11:29 BP 113 / 56 Standing; Pulse 69; rs5 14:00 BP 124 / 59; Pulse 66; Resp 18; Pulse Ox 99% on R/A; rs5 16:32 BP 141 / 50; Pulse 58; Resp 18; Temp 98; Pulse Ox 99% on R/A; rs5 16:40 BP 136 / 53; Pulse 58; Resp 18; Temp 98(O); Pulse Ox 99% on R/A; rs5 16:45 BP 139 / 52; Pulse 57; Resp 17; Temp 98(O); Pulse Ox 100% ; rs5 16:50 BP 138 / 55; Pulse 57; Resp 17; Temp 98(O); Pulse Ox 100% on R/A; rs5 10:16 Pain Scale: Adult hb ED Course: 10:06 Patient arrived in ED. mg5 10:07 Patient has correct armband on for positive identification. Placed in gown. Bed in low rs5 position. Call light in reach. Side rails up X2. 10:07 No provider procedures requiring assistance completed. rs5 10:08 Abdulaziz Carmona, RN is Primary Nurse. rs5 10:08 Anshu Reyes MD is Attending Physician. rt 10:18 Triage completed. hb 10:18 Arm band placed on. hb 10:33 Inserted saline lock: 22 gauge in right wrist, using aseptic technique. rs5 10:33 EKG done, by ED staff, reviewed by Anshu Reyes MD. hb 10:46 Extremity Venous Uni Ltd US In Process Unspecified. EDMS 11:29 XRAY Chest (1 view) In Process Unspecified. EDMS 12:10 Client placed on continuous cardiac and pulse oximetry monitoring. NIBP monitoring hb applied. hospital monitor on. Pulse ox on. NIBP on. 13:39 Steff Valladares MD is Hospitalizing Provider. rt 16:59 Patient admitted, IV remains in place. rs5 Administered Medications: 13:15 Drug: Rocephin IV 1 grams IV at calculated rate once; Given slow IV push per pharmacy rs5 instructions Route: IV; Rate: calculated rate; Site: left antecubital; 13:30 Follow up: Response: No adverse reaction rs5 Medication: 10:34 VIS not applicable for this client. rs5 Outcome: 13:40 Decision to Hospitalize by Provider. rt 16:59 Admitted to ER Hold. Please see [facility] for further documentation. rs5 16:59 Condition: stable 16:59 Instructed on the need for admit, Demonstrated understanding of instructions, 17:01 Patient left the ED. rs5 17:10 Patient left the ED. rs5 Signatures: Dispatcher [employer] EDMS Valerie Steele RN RN hb Anshu Reyes MD MD rt Abdulaziz Carmona RN RN rs5 Safia Hurley mg5 Corrections: (The following items were deleted from the chart) 10:18 10:18 PSHx: Heart Bypass December 06; hb hb 12:50 12:49 Reassessment: to bedside for orthostatics, pt denies dizziness at this moment. rs5rs5 17:41 16:55 Reassessment: Patient and/or family updated on plan of care and expected rs5 duration. Pain level reassessed. Patient is alert, oriented x 3, equal unlabored respirations, skin warm/dry/pink. to bedside for blood transfusion, transfusion started at 50 ml/hr for first 15 min, remained with patient for first 15 min. no adverse reaction noted. Rate increased to 150 ml/hr. see paper charting for more information. rs5
--- NOTE | 2024-01-10 13:57 | P.HP ---
Certification for Inpatient Patient admitted to: Inpatient With expected LOS: >2 Midnights Patient will require the following post-hospital care: None Practitioner: I am a practitioner with admitting privileges, knowledge of patient current condition, hospital course, and medical plan of care. Services: Services provided to patient in accordance with Admission requirements found in Title 42 Section 412.3 of the Code of Federal Regulations <Radha Mcarthur - Last Filed: 01/10/24 17:39> Patient History Date of Service: 01/10/24 <Steff Valladares - Last Filed: 01/10/24 17:18> Date of Service: 01/10/24 Reason for admission: near syncope, recent CABG History of Present Illness: Ms. Barksdale is a 73 yo female with past medical history of A. fib, HLD, HTN, CAD and hypothyroidism who presents with syncope. Pt reports lightheadedness while at home. It progressively worsened and pt came to the ER for evaluation. On admission, lab studies show wbc 5.8, Hgb 6.7, 4.7, Cr 1.44, glucose 116 and Na 137. Doppler ultrasound shows non-occlusive thrombus on in left left. CXR shows left pleural effusion. At bedside, pt is in NAD. Home medications list reviewed: Yes - Past Medical/Surgical History Diabetic: No -: HTN -: hypothyroidism -: hyperlipidemia -: DVT left leg -: COPD -: NSTEMI -: tubal ligation -: Quad bypass 12/07/23 -: toe surgery Psychosocial/ Personal History: Lives at home alone. Daughter nearby. Pt states she has walker, wheelchair. - Social History Smoking Status: Former smoker Alcohol use: No CD- Drugs: No Caffeine use: No Place of Residence: Home <Radha Mcarthur - Last Filed: 01/10/24 17:39> Allergies No Known Drug Allergies Allergy (Verified 12/23/23 08:12) Unknown Home Medications: Amlodipine [Norvasc*] 1 tab PO DAILY 12/04/23 Escitalopram Oxalate [Lexapro] 1 tab PO DAILY 12/04/23 Levothyroxine [Synthroid*] 1 tab PO DAILY 12/04/23 Primidone [Mysoline *] 1 tab PO BEDTIME 12/04/23 Amiodarone HCl [Cordarone Tab] 200 mg PO BID 12/21/23 Apixaban [Eliquis] 5 mg PO BID 12/21/23 Aspirin [Aspirin EC 81 MG] 81 mg PO DAILY 12/21/23 Atorvastatin Calcium 40 mg PO BEDTIME 12/21/23 Docusate Sodium 1 tab PO DAILY 12/21/23 Gabapentin 100 mg PO TID 12/21/23 Melatonin 3 mg PO DAILY 12/21/23 Metoprolol Tartrate 25 mg PO DAILY 12/21/23 Furosemide 40 mg PO DAILY 5 Days #5 12/22/23 Sacubitril/Valsartan [Entresto 49 mg-51 mg Tablet] 1 tab PO BID 180 Days #90 tab 12/22/23 Review of Systems 10-point ROS is otherwise unremarkable General: Weakness, Malaise Cardiovascular: Light Headedness, As per HPI <Radha Mcarthur - Last Filed: 01/10/24 17:39> Physical Examination - Studies Laboratory Data (last 24 hrs) 01/10/24 01/10/24 10:30 10:30 WBC 5.80 Hgb 6.7 L Hct 22.7 L Plt Count 354 Sodium 137 Potassium 4.7 BUN 16 Creatinine 1.44 H Glucose 116 H Magnesium 2.4 Total Bilirubin 0.7 AST < 10 L ALT 20 Alkaline Phosphatase 98 <Steff Valladares - Last Filed: 01/10/24 17:18> - Physical Exam General: Alert, In no apparent distress, Oriented x3 HEENT: Atraumatic, Normocephalic, Scleral icterus (mild) Neck: Supple Respiratory: Normal air movement Cardiovascular: No edema, Other (poor circ to left lower ext) Capillary refill: <2 Seconds Gastrointestinal: Soft and benign Musculoskeletal: No clubbing, No swelling Integumentary: No rashes, Other (olive pallor) Neurological: Normal speech, Normal tone, Normal affect Lymphatics: No axilla or inguinal lymphadenopathy External genitalia: Deferred Rectal: Deferred - Studies Laboratory Data (last 24 hrs) 01/10/24 01/10/24 10:30 10:30 WBC 5.80 Hgb 6.7 L Hct 22.7 L Plt Count 354 Sodium 137 Potassium 4.7 BUN 16 Creatinine 1.44 H Glucose 116 H Magnesium 2.4 Total Bilirubin 0.7 AST < 10 L ALT 20 Alkaline Phosphatase 98 <Radha Mcarthur - Last Filed: 01/10/24 17:39> Assessment and Plan Physician Review Additional Text: Pt seen and examined. I agree with the note by the MORTGAGE LOAN COUNSELOR. Pt is a 73 yo female with past medical history of A. fib, HLD, Htn, CAD and hypothyroidism who presents with syncope. Pt reports lightheadedness while at home. It progressively worsened and pt came to the ER for evaluation. On admission, lab studies show wbc 5.8, Hgb 6.7, 4.7, Cr 1.44, glucose 116 and Na 137. Doppler ultrasound shows non-occlusive thrombus on in left left. CXR shows left pleural effusion. At bedside, pt is in NAD. A/P: Syncope: Likely due to hypovolemia or anemia. Hgb is 6.7. Will transfuse 2 units of blood and obtain orthostatic vitals. Give IVF and monitor H/H. Anemia: Hgb is 6.7. Will transfuse 2 units of blood and monitor. Hold Eliquis Htn: Continue home med A.Fib: Will continue telemetry and BB . Will hold Eliquis Left leg Non-occlusive DVT: Will hold Eliquis. HLD: stain Hypothyroidism: Synthroid. Code: full <Steff Valladares - Last Filed: 01/10/24 17:18> - Plan HF with unknown EF with anemia Hgb is 6.7. Will transfuse 2 units of blood and monitor. Continue home medications ECHO A. fib/Status post CABG/DVT Will continue telemetry and BB . Will hold Eliquis Left leg Non-occlusive DVT: Will hold Eliquis rate control tele Symptomatic anemia Hgb is 6.7. Will transfuse 2 units of blood and obtain orthostatic vitals. H/H Hypertension Continue home med Hyperlipidemia Continue home medications COPD Nebs Depression continue home medications VRE/GI prophylaxis contraindication to SCD as +DVT, Protonix - Advance Directives Does patient have a Living Will: No Does patient have a Durable POA for Healthcare: No - Code Status/Comfort Care Code Status Assessed: Yes (Full) Physician Review Additional Text: <Radha Mcarthur - Last Filed: 01/10/24 17:39>
[2024-01-10] MEDS ORDERED: MELATONIN 3 MG TABLET PO PRN (15:45)
[2024-01-10] MEDS ORDERED: LACTULOSE 20 GM/30 ML UCUP PO PRN (15:45)
[2024-01-10] MEDS ORDERED: NA CHLORIDE 0.9% 250 ML ONE (16:29)
[2024-01-10 17:42] VITALS: BMI 29.5
[2024-01-10] MEDS: METOPROLOL TAR 25 MG TAB PO SCH (18:00)
[2024-01-10] MEDS: IPRATROPIUM BROM 0.5MG/2.5ML NEB SCH (19:57)
[2024-01-10] MEDS: ALBUTEROL 2.5 MG/3 ML NEB SOL NEB SCH (19:57)
[2024-01-10] MEDS: AMIODARONE HCL 200 MG TAB PO SCH (20:41)
[2024-01-10] MEDS: ATORVASTATIN 40 MG TAB PO SCH (20:41)
[2024-01-10] MEDS: GABAPENTIN 300 MG CAP PO SCH (20:41)
[2024-01-10] MEDS ORDERED: APIXABAN 5 MG TABLET PO SCH (21:00)
[2024-01-10] MEDS: SACUBITRIL/VALSARTAN 49/51 MG TAB PO SCH (21:00)
[2024-01-10] MEDS: MELATONIN 3 MG TABLET PO PRN (23:18)
[2024-01-10] MEDS: NA CHLORIDE 0.9% 250 ML ONE (23:18)
[2024-01-11 04:41] LABS: Absolute Eosinophils 0.4 K/uL (0-0.5); Absolute Lymphocytes (CBC) 0.7 K/uL (0.7-4.9); Absolute Monocytes 0.5 K/uL (0.1-1.3); Absolute Neutrophil 4.1 K/uL (1.8-8.0); Basophils % 0.8 % (0-1.3); Eosinophils % 6.5 % (0-4.4); Hematocrit 28.4 % (36.0-45.0); Hemoglobin 8.8 g/dL (12.0-15.0); Lymphocytes % 11.6 % (15.3-44.8); MCH 26.2 pg (27.0-35.0); MCHC 31.1 g/dL (32.0-36.0); MCV 84.3 fL (80-100); MPV 7.7 fL (7.6-11.3); Monocytes % 8.6 % (3.3-12.3); Neutrophils % 72.5 % (41.7-73.7); Nucleated Red Blood Cells % 0.7 % (0-0); Platelets 279 thou/uL (152-406); RBC Red Blood Cell Count 3.37 M/uL (3.86-4.86)
[2024-01-11 04:43] LABS: PT Prothrombin Time 14.8 SECONDS (9.5-12.5); PTT, Activated Partial Thromb 29.8 SECONDS (24.3-36.9); Protime INR 1.36
[2024-01-11 04:58] LABS: ALT/SGPT 17 U/L (13-56); Albumin 2.9 g/dL (3.4-5.0); Albumin/Globulin Ratio 0.9 (1.1-1.8); Alkaline Phosphatase 86 U/L (45-117); BUN Blood Urea Nitrogen 12 mg/dL (7-18); Bicarbonate 25 mEq/L (21-32); Bilirubin Total 0.6 mg/dL (0.2-1.0); Globulin 3.2 g/dL (2.3-3.5); Glomerular Filtration Rate 50 ml/min (=/>90); Glucose Level 110 mg/dL (74-106); HDL Cholesterol 34 mg/dL (40-60); LDL Cholesterol, Calculated 59 mg/dL (<130); LDL Cholesterol,Calc NonReport 59; Magnesium 2.2 mg/dL (1.6-2.4); Phosphorus 3.8 mg/dL (2.5-4.9); Protein, Total 6.1 g/dL (6.4-8.2); Sodium Level 136 mEq/L (136-145)
[2024-01-11 05:02] LABS: Ferritin 27.1 ng/mL (8-388); Thyroid Stimulating Hormone 1.06 uIU/mL (0.358-3.740)
[2024-01-11 05:12] LABS: AST/SGOT < 10 U/L (15-37)
[2024-01-11] MEDS: LEVOTHYROXINE SOD 0.1 MG TAB PO SCH (06:35)
--- NOTE | 2024-01-11 06:48 | P.PN ---
Subjective Date of Service: 01/11/24 Chief Complaint: near syncope, recent CABG Ms. Barksdale is a 73 yo female with past medical history of A. fib, HLD, HTN, CAD and hypothyroidism who presents with syncope. Pt reports lightheadedness while at home.dizziness, presyncopal likely due to hypovolemia or anemia. Hgb is 6.7, transfused 2 units of blood and obtain orthostatic vitals. Give IVF and monitor H/H. Left leg Non-occlusive DVT: Will hold Eliquis held due to symptomatic anemia Start pantoprazole drip for black tarry stools, - Physical Exam General: Alert, In no apparent distress, Oriented x3 HEENT: Atraumatic, Normocephalic, Scleral icterus (mild) Neck: Supple Respiratory: Normal air movement Cardiovascular: No edema, Other (poor circ to left lower ext) Capillary refill: <2 Seconds Gastrointestinal: Soft and benign Musculoskeletal: No clubbing, No swelling Integumentary: No rashes, Other (olive pallor) Neurological: Normal speech, Normal tone, Normal affect Lymphatics: No axilla or inguinal lymphadenopathy Review of Systems per HPI Physical Examination - Vital Signs Temperature: 97.5 F Blood Pressure: 143/68 Pulse: 69 Respirations: 20 Pulse Ox (%): 97 - Studies Laboratory Data (last 24 hrs) 01/10/24 01/10/24 10:30 10:30 WBC 5.80 Hgb 6.7 L Hct 22.7 L Plt Count 354 Sodium 137 Potassium 4.7 BUN 16 Creatinine 1.44 H Glucose 116 H Magnesium 2.4 Total Bilirubin 0.7 AST < 10 L ALT 20 Alkaline Phosphatase 98 Assessment And Plan - Plan Assessment plan Syncope: Likely due to hypovolemia or anemia. Hgb is 6.7. Will transfuse 2 units of blood and obtain orthostatic vitals. Give IVF and monitor H/H. Symptomatic anemia anemia: Suspected GI bleed Hgb is 6.7. Will transfuse 2 units of blood and monitor. Hold Eliquis Hemoglobin improved, 8.8/28.4->10.3/33.7 Htn: Continue home med Orthostatic vital signs O2 keep sats greater than 92% 01/10 Start pantoprazole drip A.Fib: Chronic anticoagulation Eliquis on hold due to symptomatic and Status post recent CABG Will continue telemetry and BB . Will hold Eliquis due to symptomatic anemia Echo ordered On amiodarone 200 twice daily Left leg Non-occlusive DVT: Will hold Eliquis. Due to symptomatic anemia HLD: Resume home stain Hypothyroidism: Synthroid. COPD Depression Resume home meds Discharge Plan: Home - Code Status/Comfort Care Code Status: Full Code Critical Care: No Time Spent Managing PTS Care (In Minutes): 35
[2024-01-11] MEDS ORDERED: FUROSEMIDE 20 MG/ 2ML VIAL IV SCH (09:00)
[2024-01-11] MEDS: PRIMIDONE 50 MG TAB PO SCH (09:11)
[2024-01-11] MEDS: ASPIRIN EC 81 MG TAB PO SCH (09:11)
[2024-01-11] MEDS: ESCITALOPRAM 20 MG TAB PO SCH (09:12)
[2024-01-11] MEDS: FUROSEMIDE 40 MG/4 ML VIAL IV SCH (09:13)
[2024-01-11 11:48] LABS: Absolute Basophils 0.1 K/uL (0-0.5); Absolute Eosinophils 0.2 K/uL (0-0.5); Absolute Lymphocytes (CBC) 0.6 K/uL (0.7-4.9); Absolute Monocytes 0.7 K/uL (0.1-1.3); Absolute Neutrophil 5.8 K/uL (1.8-8.0); Eosinophils % 2.5 % (0-4.4); Hematocrit 33.7 % (36.0-45.0); Hemoglobin 10.3 g/dL (12.0-15.0); Lymphocytes % 8.4 % (15.3-44.8); MCHC 30.7 g/dL (32.0-36.0); MCV 84.8 fL (80-100); MPV 7.5 fL (7.6-11.3); Neutrophils % 79.1 % (41.7-73.7); Nucleated Red Blood Cells % 0.2 % (0-0); Percent Reticulocyte Count 5.88 % (0.4-2.05); Platelets 347 thou/uL (152-406); RBC Red Blood Cell Count 3.97 M/uL (3.86-4.86); Red Cell Distribution Width 18.6 % (12.1-15.2)
[2024-01-11 11:51] LABS: PTT, Activated Partial Thromb 31.6 SECONDS (24.3-36.9)
[2024-01-11 11:52] LABS: PT Prothrombin Time 13.7 SECONDS (9.5-12.5); Protime INR 1.25
[2024-01-11] MEDS: PANTOPRAZOLE 40 MG INJ ONE (11:57)
[2024-01-11] MEDS: PANTOPRAZOLE INJ 80 MG in NA CHLORIDE 0.9% 250 ML IV SCH (12:06)
--- NOTE | 2024-01-11 17:12 | CON ---
Date of Consultation: 01/11/2024 Brief History Of Present Illness: The patient is a 73-year-old female with a past medical history of atrial fibrillation, hyperlipidemia, hypertension, coronary artery disease, hypothyroidism , who is status post multi-vessel CABG, on 12/07/2023 where she had a quadruple coronary artery bypas s, who is currently maintained on anticoagulation, who presents to the hospital with lightheadedness while at home. She had progressive worsening of her dizziness, lightheadedness, and syncope. She di d note that she had dark black tarry stools over the past several days prior to her arrival to the [facility] and had no nausea, vomiting associated. She has not had similar episodes before in the past. She did have a colonoscopy with Dr. Narvaez approximately 2 years ago. She cannot recall the findings, but do not recall anything ominous at that point. She since has been having dark stools, but they h ave been not as obviously bloody on the last bowel movement, but continues to have dark tardy compone nts. She currently feels better after receiving a transfusion of 2 units of PRBCs with significant i mprovement in overall symptoms and overall improvement of her condition. Past Medical History: Significant for hypertension, hypothyroidism, hyperlipidemia, DVT in the left lower extremity, COPD, non-STEMI, heart attack, coronary artery disease, atrial fibrillation. Past Surgical History: Includes a tubal ligation and a quadruple coronary artery bypass graft on , and toe surgery. Social History: She lives at home alone. Her daughter lives nearby. She uses a walker and a wheelc hair for mobility. She has a significant former tobacco use history, but denies currently, denies al cohol or recreational drug use. Allergies: NO KNOWN DRUG ALLERGIES. Home Medications: Include Norvasc, Lexapro, Synthroid, primidone, Cordarone, Eliquis, aspirin, atorv astatin, Colace, gabapentin, melatonin, metoprolol, furosemide, Entresto. Review of Systems: 10-point review of systems other than HPI, she has weakness, malaise, fatigue, lightheadedness as kailyn cribed in HPI. Physical Examination: Vital Signs: At time of my examination, her BMI is 29.5. Her blood pressure 129/60, pulse 84, respi ratory rate 17, temperature 98.1, SpO2 of 96% on room air. General: She is awake, alert, oriented. Psychiatric: She is appropriate, conversive. HEENT: Normocephalic. Sclerae anicteric. Mucous membranes are moist. Oropharynx clear. Neck: Supple without JVD. Chest: Normal expansion and excursion. Cardiovascular: Regular rate, irregular rhythm. Pulmonary: Clear to auscultation bilaterally. Well-healed sternotomy scar is evident. Abdomen: Soft, nontender, nondistended. Extremities: There is minimal swelling to her left lower extremity. Skin: Otherwise, skin is warm and dry. Laboratory Data: Revealed a white blood count of 7.3, hemoglobin is 10.3 from 6.7 on admission. Her hematocrit is 33.7. Currently, her platelets are 347, neutrophils are 79%. Sodium 136, potassium 4 .0, chloride 106, carbon dioxide 25, BUN 12, creatinine 1.1, glucose is 110, calcium 8.8. Phosphorus 3.8, magnesium is 2.2. Iron is 26.0, ferritin 27.1. Total bilirubin 0.6, AST less than 10, ALT 17, alkaline phosphatase 86. Her troponin was 10.5 on admission. TSH was 1.06. She had imaging perfor med, which included an ultrasound of the bilateral lower extremities at which point, a nonocclusive t hrombus of the left common femoral vein, femoral vein, and distal popliteal vein was similar to clot burden compared with 12/30/2023. Assessment And Plan: This is a 73-year-old female who comes in with evidence of gastrointestinal blo od loss while being on anticoagulation after recent coronary artery bypass graft surgery. 1.Continue blood product transfusions p.r.n. 2.PPI recommendation to start at this point. 3.Serial exams. 4.If the patient continues to have improvement of her overall condition and has no evidence of ongoi ng significant blood loss, I would recommend outpatient endoscopy to follow up with Dr. Narvaez and/or Neva Conway with respect to this, so that she can have continuity of care. 5.If the patient has any evidence of ongoing acute gastrointestinal blood loss and Dr. Conway is u navailable, I have explained the risks, benefits, and alternatives of upper endoscopy/EGD and colonos copy including, but not limited to bleeding, infection, damage to surrounding tissues, injury to inte jade, perforation, need for further operation procedures, blood clots, heart attack, strokes, other unforeseen complications in the perioperative. The patient and her family agreed to proceed as yudelka cated. All questions were answered. Thanks for this interesting consult. KANNAN/VINCE Voice ID: [id number] Report ID: [id number]
[2024-01-12] MEDS ORDERED: MORPHINE 2 MG/ML SYR IV PRN (03:59)
[2024-01-12] MEDS ORDERED: ACETAMINOPHEN 325 MG TABLET PO PRN (04:09)
[2024-01-12] MEDS: MORPHINE 4 MG/ML SYR IV PRN (04:19)
[2024-01-12 07:06] LABS: Absolute Eosinophils 0.4 K/uL (0-0.5); Absolute Lymphocytes (CBC) 0.6 K/uL (0.7-4.9); Absolute Monocytes 0.5 K/uL (0.1-1.3); Absolute Neutrophil 3.5 K/uL (1.8-8.0); Basophils % 0.6 % (0-1.3); Hematocrit 28.4 % (36.0-45.0); Hemoglobin 8.9 g/dL (12.0-15.0); Lymphocytes % 11.8 % (15.3-44.8); MCH 26.2 pg (27.0-35.0); MCHC 31.3 g/dL (32.0-36.0); MCV 83.6 fL (80-100); MPV 7.3 fL (7.6-11.3); Monocytes % 9.6 % (3.3-12.3); Nucleated Red Blood Cells % 0.4 % (0-0); Platelets 268 thou/uL (152-406)
[2024-01-12 07:20] LABS: Anion Gap 7.6 mEq/L (5.0-15.0); Magnesium 2.4 mg/dL (1.6-2.4); Potassium 4.6 mEq/L (3.5-5.1)
--- NOTE | 2024-01-12 07:49 | P.PN ---
Subjective Date of Service: 01/12/24 Chief Complaint: near syncope, recent CABG Ms. Barksdale is a 73 yo female with past medical history of A. fib, HLD, HTN, CAD and hypothyroidism who presents with syncope. Pt reports lightheadedness while at home.dizziness, presyncopal likely due to hypovolemia or anemia. Hgb is 6.7, transfused 2 units of blood and obtain orthostatic vitals. Give IVF and monitor H/H. Left leg Non-occlusive DVT: Will hold Eliquis held due to symptomatic anemia Start pantoprazole drip for black tarry stools, will need to follow-up with GI outpatient for EGD - Physical Exam General: Alert, In no apparent distress, Oriented x3 HEENT: Atraumatic, Normocephalic, Scleral icterus (mild) Neck: Supple Respiratory: Normal air movement Cardiovascular: No edema, Other (poor circ to left lower ext) Capillary refill: <2 Seconds Gastrointestinal: Soft and benign Musculoskeletal: No clubbing, No swelling Integumentary: No rashes, Other (olive pallor) Neurological: Normal speech, Normal tone, Normal affect Lymphatics: No axilla or inguinal lymphadenopathy Review of Systems per HPI Physical Examination - Vital Signs Temperature: 97.9 F Blood Pressure: 129/66 Pulse: 73 Respirations: 18 Pulse Ox (%): 95 Assessment And Plan - Plan Assessment plan Syncope: Likely due to hypovolemia or anemia. Will transfuse 2 units of blood and obtain orthostatic vitals. Give IVF and monitor H/H. Symptomatic anemia anemia: Suspected GI bleed Hgb is 6.7. Will transfuse 2 units of blood and monitor. Hold Eliquis Hemoglobin improved, Hgb is 6.7. ->8.8/28.4->10.3/33.7- 10.3, 8.9 Htn: Continue home med Orthostatic vital signs O2 keep sats greater than 92% 01/10 surgery consulted to eval for EGD need, Dr Gomez, 01/10 Start pantoprazole drip 01/11 CT of the abdomen pelvis ordered IMPRESSION: No acute intra-abdominal process. FU outpatient endoscopy to follow up with Dr. Brice BernardFib: Chronic anticoagulation Eliquis on hold due to symptomatic and Status post recent CABG, IVC filter Will continue telemetry and BB . Will hold Eliquis due to symptomatic anemia Echo ordered On amiodarone 200 twice daily Cardiology consult to eval for GI bleed on Eliquis Left leg Non-occlusive DVT: Will hold Eliquis. Due to symptomatic anemia HLD: Resume home stain Hypothyroidism: Synthroid. COPD Depression Resume home meds Full code Cardiac diet DVT SCDs Discharge Plan: Home - Code Status/Comfort Care Code Status: Full Code Critical Care: No Time Spent Managing PTS Care (In Minutes): 35
[2024-01-12] MEDS: PANTOPRAZOLE 40 MG INJ ONE (08:52)
[2024-01-12] MEDS: FOLIC ACID 1 MG TABLET PO SCH (12:02)
[2024-01-12] MEDS: CYANOCOBALAMIN 1,000 MCG TAB PO SCH (12:03)
--- NOTE | 2024-01-12 12:47 | RAD REPORT ---
EXAM DESCRIPTION: CT - Abdomen Pelvis W Contrast - 01/12/2024 10:12 am CLINICAL HISTORY: Abdominal Pain/Gi Bleed COMPARISON: Abdomen Pelvis W Contrast dated 09/19/2020 TECHNIQUE: Thin cut axial CT imaging of the abdomen and pelvis was performed following intravenous a dministration of 100 mL Isovue 300. Multiplanar reformats were generated and reviewed. All CT scans are performed using dose optimization technique as appropriate and may include automated exposure control or mA/KV adjustment according to patient size. FINDINGS: No suspicious findings in the lung bases. The liver, spleen, adrenal glands, and pancreas show no suspicious findings. Gallbladder and biliary tree are also without suspicious finding. Symmetric renal function is seen with no hydronephrosis or suspicious renal mass. No dilated bowel loops or bowel wall thickening. No free air, free fluid or inflammatory stranding. A ppendix is unremarkable. No hernia, mass or bulky lymphadenopathy. The urinary bladder is without sig nificant finding. No suspicious bony findings. IMPRESSION: No acute intra-abdominal process.
--- NOTE | 2024-01-12 14:16 | EKG ---
Test Date: 2024-01-10 Test Time: 22:13:18 Recovery Auditor: 15 MEASUREMENT RESULTS: Intervals: Rate: 61 WI: 164 QRSD: 94 QT: 434 QTc: 436 [place]: P: 44 WI: 164 QRS: 47 T: 40 INTERPRETIVE STATEMENTS: Normal sinus rhythm Nonspecific T wave abnormality Abnormal ECG Compared to ECG 01/10/2024 10:21:47 T-wave abnormality now present Electronically Signed On 01-12-24 14:12:35 CDT by Tima Sanders
--- NOTE | 2024-01-12 14:19 | EKG ---
Test Date: 2024-01-10 Test Time: 10:21:47 Certified Medical Transcriptionist: NICO MEASUREMENT RESULTS: Intervals: Rate: 63 MA: 166 QRSD: 94 QT: 424 QTc: 433 [place]: P: 43 MA: 166 QRS: 50 T: 61 INTERPRETIVE STATEMENTS: Normal sinus rhythm Normal ECG Compared to ECG 12/30/2023 15:16:32 T-wave abnormality no longer present Prolonged QT interval no longer present Electronically Signed On 01-12-24 14:13:43 CDT by Tima Sanders
--- NOTE | 2024-01-12 19:30 | CON ---
Date of Consultation: 01/12/2024 Reason For Consultation: Evaluation for IVC filter implantation. History Of Present Illness: This is a 73-year-old female, history of atrial fibrillation, dyslipidem ia, hypertension, coronary artery disease, history of DVT of the left lower extremity, chronic for a long time, presented with near syncope, found to be severely anemic, hemoglobin 5.8, status post mane sfusion of 2 units PRBC. Feeling better now. I was consulted for an evaluation to place an IVC filt er, stop the Eliquis. Past Medical History: As outlined above in the HPI. Medications: Refer reconciliation sheet for detailed list. Allergies: NO KNOWN DRUG ALLERGIES. Family History: No premature coronary artery disease or cancer. Social History: She does not smoke or drink. Does not use any drugs. Review of Systems: All systems reviewed are negative except mentioned in HPI. Physical Examination: Vital Signs: Reviewed. Head and Neck: Pupils are equal, reactive to light. Intact eye movements. No JVD. No cervical lym phadenopathy. Neck is supple. Thyroid is not enlarged. Lungs: Clear to auscultation bilaterally. No rhonchi, wheezing, or crackles. No accessory muscle u se. Heart: Regular rate and rhythm. No extra sounds. Abdomen: Soft, nontender. Bowel sounds positive. No organomegaly. No masses or hernia. No rigidi ty or rebound. Extremities: No edema, clubbing, cyanosis. Intact pulses. Skin: No rash. No nodule. Neurologic: Alert, awake, oriented x3. No acute focal deficits appreciated. Investigations: BUN 11, creatinine 1.2. Hemoglobin is 8.9. Ultrasound that was done upon admission on the showed nonocclusive thrombus in the left common f emoral vein, distal popliteal vein, similar clot burden compared to December 29. I am not sure if this is an old or an acute thrombus. Assessment/recommendation: 1.DVT of left lower extremity in the setting of massive anemia that required blood transfusion. It does not seem like this is a new episode of acute DVT, it is probably chronic DVT. I recommend GI wo rkup including EGD and colonoscopy to evaluate the source of bleeding and rechallenge with Eliquis. If this fails, then plan for an IVC filter implantation. 2.Coronary artery disease, status post CABG recently, doing clinically well. 3.Anemia, requiring blood transfusion. Recommend workup including EGD and colonoscopy during this h ospital stay and if there is no obvious source of bleeding, then a challenge with Eliquis is recommen ded prior to IVC filter implantation. /MODL Voice ID: [id number] Report ID: [id number]
[2024-01-13 06:59] LABS: Absolute Eosinophils 0.3 K/uL (0-0.5); Absolute Lymphocytes (CBC) 0.5 K/uL (0.7-4.9); Absolute Monocytes 0.4 K/uL (0.1-1.3); Absolute Neutrophil 3.3 K/uL (1.8-8.0); Basophils % 0.7 % (0-1.3); Eosinophils % 6.9 % (0-4.4); Hematocrit 28.9 % (36.0-45.0); Hemoglobin 9.1 g/dL (12.0-15.0); Lymphocytes % 11.2 % (15.3-44.8); MCH 26.4 pg (27.0-35.0); MCHC 31.5 g/dL (32.0-36.0); MPV 7.4 fL (7.6-11.3); Monocytes % 9.3 % (3.3-12.3); Neutrophils % 71.9 % (41.7-73.7); Nucleated Red Blood Cells % 0.1 % (0-0); Platelets 271 thou/uL (152-406); RBC Red Blood Cell Count 3.44 M/uL (3.86-4.86); Red Cell Distribution Width 18.5 % (12.1-15.2)
--- NOTE | 2024-01-13 07:12 | P.PN ---
Subjective Date of Service: 01/14/24 Chief Complaint: near syncope, recent CABG Ms. Barksdale is a 73 yo female with past medical history of A. fib, HLD, HTN, CAD and hypothyroidism who presents with syncope. Pt reports lightheadedness while at home.dizziness, presyncopal likely due to hypovolemia or anemia. Hgb is 6.7, transfused 2 units of blood and obtain orthostatic vitals. Give IVF and monitor H/H. Left leg Non-occlusive DVT: Will hold Eliquis held due to symptomatic anemia Start pantoprazole BID added, will need to follow-up with GI outpatient for EGD no tarry stools today, stable - Physical Exam General: Alert, In no apparent distress, Oriented x3 HEENT: Atraumatic, Normocephalic, Scleral icterus (mild) Neck: Supple Respiratory: Normal air movement Cardiovascular: No edema, Other (poor circ to left lower ext) Capillary refill: <2 Seconds Gastrointestinal: Soft and benign Musculoskeletal: No clubbing, No swelling Integumentary: No rashes, Other (olive pallor) Neurological: Normal speech, Normal tone, Normal affect Lymphatics: No axilla or inguinal lymphadenopathy Review of Systems per HPI Physical Examination - Vital Signs Temperature: 97.1 F Blood Pressure: 144/63 Pulse: 63 Respirations: 18 Pulse Ox (%): 93 Assessment And Plan - Plan Assessment plan Syncope: Likely due to hypovolemia or anemia. Will transfuse 2 units of blood and obtain orthostatic vitals. Give IVF and monitor H/H. stable Symptomatic anemia anemia: Suspected GI bleed Hgb is 6.7. Will transfuse 2 units of blood and monitor. Hold Eliquis Hemoglobin improved, Hgb is 6.7. ->8.8/28.4->10.3/33.7- 10.3, 8.9 Htn: Continue home med Orthostatic vital signs O2 keep sats greater than 92% 01/10 surgery consulted to eval for EGD need, Dr Gomez, 01/10 Start pantoprazole drip 01/11 CT of the abdomen pelvis ordered IMPRESSION: No acute intra-abdominal process. FU outpatient endoscopy to follow up with Dr. Narvaez stable A.Fib: Chronic anticoagulation Eliquis on hold due to symptomatic and Status post recent CABG, IVC filter Will continue telemetry and BB . Will hold Eliquis due to symptomatic anemia Echo ordered On amiodarone 200 twice daily Cardiology consult to eval for GI bleed on Eliquis Left leg Non-occlusive DVT: Will hold Eliquis. Due to symptomatic anemia HLD: Resume home stain Hypothyroidism: Synthroid. COPD Depression Resume home meds Full code Cardiac diet DVT SCDs Critical Care: No Time Spent Managing PTS Care (In Minutes): 35
[2024-01-13 07:14] LABS: Anion Gap 7.1 mEq/L (5.0-15.0); Magnesium 2.5 mg/dL (1.6-2.4); Potassium 5.1 mEq/L (3.5-5.1)
--- NOTE | 2024-01-13 07:15 | P.DS ---
Admission Date: 01/10/24 Discharge Date: 01/15/24 Disposition: DC HOME/HOME HEALTH CARE Discharge Condition: GOOD Reason for Admission: near syncope, recent CABG Brief History of Present Illness: Ms. Barksdale is a 73 yo female with past medical history of A. fib, HLD, HTN, CAD and hypothyroidism who presents with syncope. Pt reports lightheadedness while at home. It progressively worsened and pt came to the ER for evaluation. On admission, lab studies show wbc 5.8, Hgb 6.7, 4.7, Cr 1.44, glucose 116 and Na 137. Doppler ultrasound shows non-occlusive thrombus on in left left. CXR shows left pleural effusion. At bedside, pt is in NAD. - Physical Exam General: Alert, In no apparent distress, Oriented x3 HEENT: Atraumatic, Normocephalic, Neck: Supple Respiratory: Normal air movement Cardiovascular: No edema, Other (poor circ to left lower ext) Capillary refill: <2 Seconds Gastrointestinal: Soft and benign Musculoskeletal: No clubbing, No swelling Integumentary: No rashes, Neurological: Normal speech, Normal tone, Normal affect Lymphatics: No axilla or inguinal lymphadenopathy Hospital Course: 73 yo female with past medical history of A. fib, HLD, HTN, CAD and hypothyroidism who presents with syncope. Was noted to have symptomatic anemia. Condition improved with holding Eliquis, and transfused 2 units of packed red blood cells, cardiology following for Eliquis dosing. start eliquis 2.5 po BID Patient tolerating diet, stable for discharge to home with follow-up appointment with primary care physician. PROBLEM: Symptomatic anemia received 2 units of packed red blood cells 6.7, repeat 8.8, 10.3, 8.9, stabilized EGD/colon completed, no evidence of GIB, resume Eliquis 2.5 po bid Follow up with GI after discharge Follow up with PCP to recheck Hemoglobin next week Continue home medicines as previously prescribed GOAL: Clear understanding of disease process INSTRUCTIONS: Physician Discharge Instructions: -Follow-up with PCP in 1 to 2 weeks -Please call Dr. Jefferson at [phone] if any questions regarding hospital stay -Please call nursing station at [phone] if any nursing or medication questions -Return to the emergency room if symptoms worsen Diet: ADA, low sodium Activity: Fall precautions Vital Signs/Physical Exam: Temp Pulse Resp BP Pulse Ox 97.1 F 63 18 144/63 H 93 01/13/24 07:12 01/13/24 07:12 01/13/24 07:12 01/13/24 07:12 01/13/24 07:12 Laboratory Data at Discharge: WBC 4.50 thou/uL (4.3-10.9) 01/13/24 06:45 Hgb 9.1 g/dL (12.0-15.0) L 01/13/24 06:45 Hct 28.9 % (36.0-45.0) L 01/13/24 06:45 Plt Count 271 thou/uL (152-406) 01/13/24 06:45 PT 13.7 SECONDS (9.5-12.5) H 01/11/24 11:31 INR 1.25 01/11/24 11:31 APTT 31.6 SECONDS (24.3-36.9) 01/11/24 11:31 Sodium 135 mEq/L (136-145) L 01/12/24 06:53 Potassium 4.6 mEq/L (3.5-5.1) D 01/12/24 06:53 BUN 11 mg/dL (7-18) 01/12/24 06:53 Creatinine 1.20 mg/dL (0.55-1.02) H 01/12/24 06:53 Glucose 107 mg/dL (74-106) H 01/12/24 06:53 Phosphorus 3.8 mg/dL (2.5-4.9) 01/11/24 04:01 Magnesium 2.4 mg/dL (1.6-2.4) 01/12/24 06:53 Total Bilirubin 0.6 mg/dL (0.2-1.0) 01/11/24 04:01 AST < 10 U/L (15-37) L 01/11/24 04:01 ALT 17 U/L (13-56) 01/11/24 04:01 Alkaline Phosphatase 86 U/L (45-117) 01/11/24 04:01 Triglycerides 84 mg/dL (<150) 01/11/24 04:01 Cholesterol 110 mg/dL (<200) 01/11/24 04:01 HDL Cholesterol 34 mg/dL (40-60) L 01/11/24 04:01 Cholesterol/HDL Ratio 3.24 01/11/24 04:01 Home Medications: Escitalopram Oxalate [Lexapro] 1 tab PO DAILY 12/04/23 Levothyroxine [Synthroid*] 1 tab PO [id number] 12/04/23 Primidone [Mysoline *] 2 tab PO BEDTIME 12/04/23 Amiodarone HCl [Cordarone*] 200 mg PO BID 12/21/23 Aspirin [Aspirin EC 81 MG] 81 mg PO DAILY 12/21/23 Atorvastatin Calcium 40 mg PO BEDTIME 12/21/23 Docusate Sodium 1 tab PO DAILY 12/21/23 Gabapentin 300 mg PO TID 12/21/23 Melatonin 4.5 mg PO BEDTIME 12/21/23 Metoprolol Tartrate 25 mg PO BID 6AM 6PM 12/21/23 Sacubitril/Valsartan [Entresto 49 mg-51 mg Tablet] 1 tab PO BID 180 Days #90 tab 12/22/23 Amiodarone HCl [Cordarone*] 200 mg PO BID tab 01/15/24 Apixaban [Eliquis *] 2.5 mg PO BID 30 Days #60 tab 01/15/24 Atorvastatin Calcium [Lipitor] 40 mg PO BEDTIME tab 01/15/24 Cyanocobalamin [Vitamin B-12*] 1,000 mcg PO DAILY tab 01/15/24 Escitalopram [Lexapro*] 5 mg PO DAILY tab 01/15/24 Furosemide 20 mg PO DAILY 30 Days #20 tab 01/15/24 Levothyroxine [Synthroid*] 0.1 mg PO DAILYAC tab 01/15/24 Pantoprazole [Protonix Tab] 40 mg PO BID 30 Days #60 tab 01/15/24 Sacubitril/Valsartan [Entresto 49 mg-51 mg Tablet] 1 tab PO BID 30 Days #60 tab 01/15/24 New Medications: Apixaban [Eliquis *] 2.5 mg PO BID 30 Days #60 tab Sacubitril/Valsartan [Entresto 49 mg-51 mg Tablet] 1 tab PO BID 30 Days #60 tab Furosemide 20 mg PO DAILY 30 Days #20 tab Pantoprazole [Protonix Tab] 40 mg PO BID 30 Days #60 tab Physician Discharge Instructions: 73 yo female with past medical history of A. fib, HLD, HTN, CAD and hypothyroidism who presents with syncope. Was noted to have symptomatic anemia. Condition improved with holding Eliquis, and transfused 2 units of packed red blood cells, cardiology following for Eliquis dosing. Patient tolerating diet, stable for discharge to home with follow-up appointment with primary care physician. PROBLEM: Symptomatic anemia received 2 units of packed red blood cells 6.7, repeat 8.8, 10.3, 8.9, stabilized at 9.1-EGD scheduled today with surgery Continue home medicines as previously prescribed GOAL: Clear understanding of disease process INSTRUCTIONS: Physician Discharge Instructions: -Follow-up with PCP in 1 to 2 weeks -Please call Dr. Jefferson at [phone] if any questions regarding hospital stay -Please call nursing station at [phone] if any nursing or medication questions -Return to the emergency room if symptoms worsen Diet: AHA Activity: Fall precautions Followup: Garrett Gomez MD [ACTIVE - CAN ADMIT] - (follow up in 2 weeks) Victoria Hernández MD [Primary Care Provider] - 1-2 Weeks (call to schedule an appointment) Kristofer Conway MD [ACTIVE - CAN ADMIT] - 1-2 Weeks (call to schedule an appointment) Time spent managing pt's care (in minutes): 55
[2024-01-13] MEDS: HYDROCODONE/APAP 10/325 TAB PO PRN (09:28)
[2024-01-13] MEDS: Ringers Lactate 1,000 ML IV ONE (13:47)
[2024-01-13] MEDS ORDERED: LIDOCAINE 1% MPF 5 ML VIAL ONE (14:36)
[2024-01-13] MEDS ORDERED: propofoL 200 MG/20 ML VIAL IV ONE (14:36)
[2024-01-13] MEDS: SUCCINYLCHOLINE 20 MG/ML (10 ML) IV ONE (14:42)
[2024-01-13] MEDS: GOLYTELY 4000 ML PO SCH (17:07)
[2024-01-14 03:59] LABS: Absolute Eosinophils 0.4 K/uL (0-0.5); Absolute Lymphocytes (CBC) 0.5 K/uL (0.7-4.9); Absolute Monocytes 0.4 K/uL (0.1-1.3); Absolute Neutrophil 3.3 K/uL (1.8-8.0); Basophils % 0.9 % (0-1.3); Eosinophils % 9.1 % (0-4.4); Hematocrit 27.4 % (36.0-45.0); Hemoglobin 8.5 g/dL (12.0-15.0); Lymphocytes % 10.4 % (15.3-44.8); MCV 83.8 fL (80-100); MPV 7.7 fL (7.6-11.3); Monocytes % 8.9 % (3.3-12.3); Neutrophils % 70.7 % (41.7-73.7); Nucleated Red Blood Cells % 0.3 % (0-0); Platelets 257 thou/uL (152-406); RBC Red Blood Cell Count 3.26 M/uL (3.86-4.86); Red Cell Distribution Width 18.6 % (12.1-15.2)
[2024-01-14 04:18] LABS: Anion Gap 7.5 mEq/L (5.0-15.0); Potassium 4.5 mEq/L (3.5-5.1)
--- NOTE | 2024-01-14 07:25 | ECHO ---
HEIGHT: 5 ft 8 in WEIGHT: 194 lb 4 oz DATE OF STUDY: 01/13/[address]: Radha Mcarthur CONFERENCE SERVICE COORDINATOR-BC 2-DIMENSIONAL: YES M.MODE: YES DOPPLER: YES COLOR FLOW: YES TDS: PORTABLE: YES DEFINITY: BUBBLE STUDY: DIAGNOSIS: HISTORY OF CONGESTIVE HEART FAILURE, NEAR SYNCOPE CARDIAC HISTORY: CATHERIZATION: YES SURGERY: YES PROSTHETIC VALVE: NO PACEMAKER: NO MEASUREMENTS (cm) DIASTOLIC (NORMALS) SYSTOLIC (NORMALS) IVSd 1.0 (0.6-1.2) LA Diam 3.4 (1.9-4.0) LVEF 60-65% LVIDd 4.4 (3.5-5.7) LVIDs 3.2 (2.0-3.5) %FS 28% LVPWd 1.1 (0.6-1.2) Ao Diam 2.4 (2.0-3.7) 2 DIMENSIONAL ASSESSMENT: RIGHT ATRIUM: NORMAL LEFT ATRIUM: MILD DILATED RIGHT VENTRICLE: NORMAL LEFT VENTRICLE: NORMAL TRICUSPID VALVE: TRACE TRICUSPID REGURGITATION MITRAL VALVE: TRACE MITRAL REGURGITATION PULMONIC VALVE: NORMAL AORTIC VALVE: NORMAL PERICARDIAL EFFUSION: TRACE AORTIC ROOT: NORMAL LEFT VENTRICULAR WALL MOTION: NORMAL DOPPLER/COLOR FLOW: DIASTOLIC DYSFUNCTION COMMENTS: 1. NORMAL LEFT VENTRICULAR SYSTOLIC FUNCTION, EJECTION FRACTION 60-65%, NORMAL WALL MOTION 2. DIASTOLIC DYSFUNCTION TECHNOLOGIST: NAUN VICTOR
[2024-01-14] MEDS ORDERED: ALBUTEROL 2.5 MG/3 ML NEB SOL NEB PRN (13:41)
[2024-01-14] MEDS ORDERED: IPRATROPIUM BROM 0.5MG/2.5ML NEB PRN (13:41)
[2024-01-14] MEDS ORDERED: LIDOCAINE 1% MPF 5 ML VIAL ONE (14:56)
[2024-01-14] MEDS ORDERED: propofoL 200 MG/20 ML VIAL IV ONE (14:56)
[2024-01-14] MEDS: Ringers Lactate 1,000 ML IV ONE (15:08)
--- NOTE | 2024-01-14 19:10 | P.PN ---
Subjective Date of Service: 01/14/24 Chief Complaint: near syncope, recent CABG Ms. Barksdale is a 73 yo female with past medical history of A. fib, HLD, HTN, CAD and hypothyroidism who presents with syncope. Pt reports lightheadedness while at home.dizziness, presyncopal likely due to hypovolemia or anemia. Hgb is 6.7, transfused 2 units of blood and obtain orthostatic vitals. Give IVF and monitor H/H. Left leg Non-occlusive DVT: Will hold Eliquis held due to symptomatic anemia Start pantoprazole BID added, no tarry stools today, stable Plan for EGD/Colon -no evidence of GIB, will resume eliquis 2.5 po bid - Physical Exam General: Alert, In no apparent distress, Oriented x3 HEENT: Atraumatic, Normocephalic, Scleral icterus (mild) Neck: Supple Respiratory: Normal air movement Cardiovascular: No edema, Other (poor circ to left lower ext) Capillary refill: <2 Seconds Gastrointestinal: Soft and benign Musculoskeletal: No clubbing, No swelling Integumentary: No rashes, Other (olive pallor) Neurological: Normal speech, Normal tone, Normal affect Lymphatics: No axilla or inguinal lymphadenopathy Review of Systems per HPI Physical Examination - Vital Signs Temperature: 97.4 F Blood Pressure: 149/65 Pulse: 65 Respirations: 16 Pulse Ox (%): 98 Assessment And Plan - Plan Assessment plan Syncope: Likely due to hypovolemia or anemia. Will transfuse 2 units of blood and obtain orthostatic vitals. Give IVF and monitor H/H. stable Symptomatic anemia anemia: improved Suspected GI bleed ruled out Hgb is 6.7. Will transfuse 2 units of blood and monitor. Hold Eliquis Hemoglobin improved, Hgb is 6.7. ->8.8/28.4->10.3/33.7- 10.3, 8.9 Htn: Continue home med Orthostatic vital signs O2 keep sats greater than 92% 01/10 surgery consulted to eval for EGD need, Dr Gomez, 01/10 Start pantoprazole drip 01/11 CT of the abdomen pelvis ordered IMPRESSION: No acute intra-abdominal process. stable Plan for EGD/Colon inpatient today A.Fib: Chronic anticoagulation Eliquis on hold due to symptomatic and Status post recent CABG, IVC filter Will continue telemetry and BB . Will hold Eliquis due to symptomatic anemia Echo ordered On amiodarone 200 twice daily Cardiology consult to eval for GI bleed on Eliquis Left leg Non-occlusive DVT: Will hold Eliquis. Due to symptomatic anemia HLD: Resume home stain Hypothyroidism: Synthroid. COPD Depression Resume home meds Full code Cardiac diet DVT SCDs Discharge Plan: Home - Code Status/Comfort Care Code Status: Full Code Critical Care: No Time Spent Managing PTS Care (In Minutes): 35
--- NOTE | 2024-01-14 19:25 | PN ---
Date of Progress Note: 01/14/2024 Subjective: Seen by bedside and getting workup for GI bleed. EGD and colonoscopy pending. Review of Systems: No chest pain, shortness of breath, orthopnea, cough. No nausea, vomiting, diarrhea. No abdominal p ain. No dysuria, polyuria, or urgency. All other systems reviewed are negative. Physical Examination: Vital Signs: Reviewed. Head and Neck: Pupils are equal, reactive to light. Intact eye movements. No JVD. No cervical lym phadenopathy. Neck is supple. Thyroid is not enlarged. Lungs: Clear to auscultation bilaterally. No rhonchi, wheezing, or crackles. No accessory muscle u se. Heart: Regular. No extra sounds. Abdomen: Soft, nontender. Bowel sounds positive. No organomegaly. No masses or hernia. No rigidi ty or rebound. Extremities: No clubbing, cyanosis. Intact pulses. Skin: No rash. No nodule. Neurologic: Alert, awake, oriented x3. No acute focal deficit appreciated. Investigations: Labs reviewed. Assessment/recommendation: 1.DVT, left lower extremity. Anemia workup is taking place. I recommend to challenge with Eliquis 5 mg twice a day and monitor. If a massive bleed happens again, then consideration for IVC filter wi ll be made. 2.Coronary artery disease, status post recent CABG and doing well. 3.Anemia due to GI blood loss. She is on PPI IV. She had EGD. I will discuss the results of the E GD with Dr. Gomez and plan accordingly and the patient is to have colonoscopy to further evaluate this anemia. /VINCE Voice ID: [id number] Report ID: [id number]
[2024-01-14] MEDS: APIXABAN 2.5 MG TABLET PO SCH (20:40)
[2024-01-15 07:10] LABS: Absolute Eosinophils 0.5 K/uL (0-0.5); Absolute Lymphocytes (CBC) 0.6 K/uL (0.7-4.9); Absolute Monocytes 0.4 K/uL (0.1-1.3); Absolute Neutrophil 2.8 K/uL (1.8-8.0); Basophils % 0.9 % (0-1.3); Eosinophils % 11.6 % (0-4.4); Hemoglobin 9.4 g/dL (12.0-15.0); Lymphocytes % 14.3 % (15.3-44.8); MCHC 31.4 g/dL (32.0-36.0); MCV 82.7 fL (80-100); MPV 7.3 fL (7.6-11.3); Monocytes % 9.6 % (3.3-12.3); Neutrophils % 63.6 % (41.7-73.7); Nucleated Red Blood Cells % 0.2 % (0-0); Platelets 269 thou/uL (152-406); RBC Red Blood Cell Count 3.63 M/uL (3.86-4.86); Red Cell Distribution Width 18.1 % (12.1-15.2)
[2024-01-15 07:24] LABS: Anion Gap 6.1 mEq/L (5.0-15.0); Magnesium 2.3 mg/dL (1.6-2.4); Potassium 4.1 mEq/L (3.5-5.1)
[2024-01-15 09:28] VITALS: O2SAT 96
[2024-01-15 12:01] VITALS: BP 101/57; TEMP 97.1
--- NOTE | 2024-01-15 12:24 | RAD REPORT ---
EXAM DESCRIPTION: RAD - Thoracic Spine Ap/Lat - 01/15/2024 12:08 pm CLINICAL HISTORY: Back pain FINDINGS: No fracture or dislocation seen Osteoporosis Mild scoliosis involves the spine. Mild spondylosis is present within the thoracic spine mainly consisting of small osteophytes
[2024-01-15] MEDS ORDERED: APIXABAN 2.5 MG TABLET PO SCH (21:00)
== END 2024-01-15 13:14 | disposition home health service (06) | DRG 391 ==
LOC: ER 10:02 → ERHOLD 15:29 → 2ND 17:03
PROVIDERS: ADMIT Hospitalist; ATTEND Hospitalist
PROC: 30233N1 Transfusion of Nonautologous Red Blood Cells into Peripheral Vein, Percutaneous Approach (ICD-10-PCS; principal; 2024-01-10)
PROC: 0DB98ZX Excision of Duodenum, Via Natural or Artificial Opening Endoscopic, Diagnostic (ICD-10-PCS; 2024-01-13)
PROC: 0DB68ZX Excision of Stomach, Via Natural or Artificial Opening Endoscopic, Diagnostic (ICD-10-PCS; 2024-01-13)
PROC: 0DB48ZX Excision of Esophagogastric Junction, Via Natural or Artificial Opening Endoscopic, Diagnostic (ICD-10-PCS; 2024-01-13)
PROC: 0DJD8ZZ Inspection of Lower Intestinal Tract, Via Natural or Artificial Opening Endoscopic (ICD-10-PCS; 2024-01-14)
DX: K22.5 Diverticulum of esophagus, acquired (principal); I50.31 Acute diastolic (congestive) heart failure; D62 Acute posthemorrhagic anemia; I11.0 Hypertensive heart disease with heart failure; K29.80 Duodenitis without bleeding; K29.50 Unspecified chronic gastritis without bleeding; K22.70 Barrett's esophagus without dysplasia; E86.1 Hypovolemia; E78.5 Hyperlipidemia, unspecified; E03.9 Hypothyroidism, unspecified; I48.91 Unspecified atrial fibrillation; K44.9 Diaphragmatic hernia without obstruction or gangrene; F32.A Depression, unspecified; J44.9 Chronic obstructive pulmonary disease, unspecified; I25.2 Old myocardial infarction; I25.10 Atherosclerotic heart disease of native coronary artery without angina pectoris; Z95.1 Presence of aortocoronary bypass graft; Z60.2 Problems related to living alone; Z98.51 Tubal ligation status; Z79.82 Long term (current) use of aspirin; Z79.01 Long term (current) use of anticoagulants; Z79.890 Hormone replacement therapy; Z79.899 Other long term (current) drug therapy; Z87.891 Personal history of nicotine dependence; Z86.718 Personal history of other venous thrombosis and embolism
CPT/HCPCS: 36415; 71045; 72070; 74177; 80048; 80053; 80061; 80076; 82607; 82728; 83010; 83540; 83735; 84100; 84443; 84484; 85025; 85044; 85610; 85730; 86850; 86900; 86901; 86920; 88305; 88312; 88313; 93005; 93306; 93971; 94640; 96374; 99285; C9113; J0696; J1940; J2001; J2704; J7050; J7120; J7613; J7644; P9016; Q9967

== ENCOUNTER 2024-02-06 12:21 | Emergency (ER) | payer OTHER ==
[2024-02-06] MEDS ORDERED: MORPHINE 4 MG/ML SYR ONE ×2 (13:06→15:56)
[2024-02-06] MEDS ORDERED: ONDANSETRON 4 MG/2 ML VIAL ONE (13:06)
[2024-02-06 13:22] LABS: Absolute Eosinophils 0.2 K/uL (0-0.5); Absolute Lymphocytes (CBC) 0.5 K/uL (0.7-4.9); Absolute Monocytes 0.4 K/uL (0.1-1.3); Absolute Neutrophil 3.1 K/uL (1.8-8.0); Basophils % 0.7 % (0-1.3); Eosinophils % 3.8 % (0-4.4); Hemoglobin 8.5 g/dL (12.0-15.0); Lymphocytes % 12.9 % (15.3-44.8); MCH 26.8 pg (27.0-35.0); MCHC 31.4 g/dL (32.0-36.0); MCV 85.3 fL (80-100); MPV 7.3 fL (7.6-11.3); Monocytes % 8.7 % (3.3-12.3); Neutrophils % 73.9 % (41.7-73.7); Nucleated Red Blood Cells % 0.2 % (0-0); Platelets 256 thou/uL (152-406); RBC Red Blood Cell Count 3.17 M/uL (3.86-4.86); Red Cell Distribution Width 25.4 % (12.1-15.2)
[2024-02-06 13:45] LABS: Specific Gravity 1.008 (1.005-1.030); Sqamous Epithelial <5 /HPF (None Seen); Urine Bacteria None Seen /HPF (<20); Urine Bilirubin NEGATIVE (Negative); Urine Blood Negative (Negative); Urine Clarity Turbid (Clear); Urine Color Light-Yellow (Yellow); Urine Culture Reflex Order NOT NEEDED; Urine Glucose NEGATIVE (Negative); Urine Ketones NEGATIVE (Negative); Urine Microscopic Reflex YN ORDER UMIC; Urine Nitrite NEGATIVE (Negative); Urine Protein NEGATIVE (Negative); Urine RBC None Seen /HPF (None Seen); Urine Urobilinogen Normal (Normal); Urine WBC <5 /HPF (<5)
[2024-02-06 13:50] LABS: Anisocytosis 3+; Blood Morphology Comment NOTED (NOT SEEN); Hypochromasia 2+; Platelet Estimate ADEQ; White Blood Cell Scan OK (OK)
[2024-02-06 13:58] LABS: Albumin/Globulin Ratio 0.8 (1.1-1.8); Bilirubin Total 0.7 mg/dL (0.2-1.0); Globulin 3.6 g/dL (2.3-3.5); Protein, Total 6.6 g/dL (6.4-8.2)
--- NOTE | 2024-02-06 15:21 | RAD REPORT ---
EXAM DESCRIPTION: CT - Abdomen Pelvis W Contrast - 02/06/2024 2:39 pm CLINICAL HISTORY: FLANK PAIN COMPARISON: Abdomen Pelvis W Contrast dated 01/12/2024; Abdomen Pelvis W Contrast dated 09/19/2020; Chest Single View dated 01/24/2024; Thorax W/ Con dated 01/24/2024 TECHNIQUE: Thin cut axial CT imaging of the abdomen and pelvis was performed following intravenous a dministration of iodinated contrast. Multiplanar reformats were generated and reviewed. All CT scans are performed using dose optimization technique as appropriate and may include automated exposure control or mA/KV adjustment according to patient size. FINDINGS: Stable small to moderate layering left pleural effusion. The liver, spleen, and pancreas show no suspicious findings. Benign nodular bilateral adrenal gland t hickening is stable and nonspecific. Gallbladder and biliary tree are also without suspicious finding . Symmetric renal function is seen with no hydronephrosis or suspicious renal mass. No dilated bowel loops or bowel wall thickening. Nonspecific fluid opacification of the proximal thro ugh transverse colon. No free air, free fluid or inflammatory stranding. No hernia, mass or bulky lym phadenopathy. The urinary bladder is without significant finding. No suspicious bony findings. IMPRESSION: Nonspecific fluid opacification of the proximal through transverse colon, may represent diarrheal state. Stable small to moderate left layering pleural effusion.
[2024-02-06] MEDS ORDERED: KETOROLAC 30 MG/ML INJ ONE (15:55)
--- NOTE | 2024-02-06 16:25 | ER ---
Nurse's Notes [facility] Name: Griselda Barksdale Age: 73 yrs Sex: Female : 1950 Arrival Date: 02/06/2024 Time: 12:21 Bed 19 Private MD: Diagnosis: Back pain Presentation: 02/05 12:34 Chief complaint: Patient states: RIGHT FLANK PAIN WITH VOMITING X 2 DAYS. PT REPORTS db "FEELS LIKE KIDNEY INFECTION". Coronavirus screen: Client denies travel out of the [place] in the last 14 days. At this time, the client does not indicate any symptoms associated with coronavirus-19. Ebola Screen: Patient negative for fever greater than or equal to 101.5 degrees Fahrenheit, and additional compatible Ebola Virus Disease symptoms Patient denies exposure to infectious person. Patient denies travel to an Ebola-affected area in the 21 days before illness onset. No symptoms or risks identified at this time. Initial Sepsis Screen: Does the patient meet any 2 criteria? No. Patient's initial sepsis screen is negative. Does the patient have a suspected source of infection? No. Patient's initial sepsis screen is negative. Risk Assessment: Do you want to hurt yourself or someone else? Patient reports no desire to harm self or others. Onset of symptoms was February 06, 2024. 12:34 Method Of Arrival: Ambulatory db 12:34 Acuity: FILEMON 3 db Triage Assessment: 12:35 General: Appears in no apparent distress. uncomfortable, Behavior is calm, cooperative. db Pain: Complains of pain in back. Neuro: Level of Consciousness is awake, alert, obeys commands, Oriented to person, place, time, situation. Cardiovascular: No deficits noted. Respiratory: Airway is patent Respiratory effort is even, unlabored, Respiratory pattern is regular, symmetrical. GI: Reports nausea, vomiting. : Denies burning with urination. Historical: - Allergies: 12:35 No Known Allergies; db - PMHx: 12:35 DVT Left leg; Hypertension; Hyperlipidemia; Hypothyroidism; Myocardial infarction; db - PSHx: 12:35 Heart Bypass December 06; Ligation of fallopian tube; db - Immunization history:: Adult Immunizations unknown. - Infectious Disease History:: Denies. - Social history:: Smoking status: Patient/guardian denies using tobacco, Stopped _ months ago 2. - Family history:: not pertinent. Screenin:20 [facility] ED Fall Risk Assessment (Adult) History of falling in the last 3 months, nj1 including since admission No falls in past 3 months (0 pts) Confusion or Disorientation No (0 pts) Intoxicated or Sedated No (0 pts) Impaired Gait No (0 pts) Mobility Assist Device Used No (0 pt) Altered Elimination No (0 pt) Score/Fall Risk Level 0 - 2 = Low Risk Oriented to surroundings, Maintained a safe environment, Hourly rounding (assess needs \\T\\ fall precautionary measures) done. Abuse screen: Denies threats or abuse. Denies injuries from another. Nutritional screening: No deficits noted. Tuberculosis screening: No symptoms or risk factors identified. Assessment: 13:20 General: Appears in no apparent distress. uncomfortable, Behavior is calm, cooperative, nj1 appropriate for age. Pain: Complains of pain in back Pain currently is 9 out of 10 on a pain scale. Neuro: Level of Consciousness is awake, alert, obeys commands, Oriented to person, place, time, situation. Cardiovascular: Patient's skin is warm and dry. Respiratory: Airway is patent Respiratory effort is even, unlabored. GI: Reports nausea, vomiting, since 3 days ago. 14:20 Reassessment: Not in room, in imaging. nj1 16:00 Reassessment: Patient appears in no apparent distress at this time. Patient and/or nj1 family updated on plan of care and expected duration. Pain level reassessed. Patient is alert, oriented x 3, equal unlabored respirations, skin warm/dry/pink. Vital Signs: 12:34 BP 156 / 65; Pulse 64; Resp 18; Temp 98.5(O); Pulse Ox 100% on R/A; Height 5 ft. 8 in. db ; Pain 9/10; 13:20 BP 152 / 54; Pulse 62; Resp 17; Pulse Ox 98% ; Pain 9/10; nj1 14:45 Pulse 61; Resp 17; Pulse Ox 99% ; Pain 8/10; nj1 16:03 BP 150 / 62; Pulse 52; Resp 16; Pulse Ox 97% on R/A; Pain 8/10; nj1 12:34 Pain Scale: Adult db 13:20 Pain Scale: Adult nj1 14:45 Pain Scale: Adult nj1 16:03 Pain Scale: Adult nj1 ED Course: 12:23 Patient arrived in ED. im 12:25 Anshu Reyes MD is Attending Physician. rt 12:35 Triage completed. db 12:35 Arm band placed on Patient placed in an exam room. db 12:36 Isabel Su, RN is Primary Nurse. nj1 13:05 Missed attempt(s): 20 gauge in right antecubital area. Bleeding controlled, band aid nj1 applied, catheter tip intact. 13:13 Inserted saline lock: 20 gauge in right forearm, using aseptic technique. Blood nj1 collected. 13:21 Patient has correct armband on for positive identification. Bed in low position. Call nj1 light in reach. Adult w/ patient. Provided Education on: call light, fall precautions. 14:41 CT Abd/Pelvis - IV Contrast Only In Process Unspecified. EDMS 16:30 No provider procedures requiring assistance completed. nj1 16:30 IV discontinued, intact, bleeding controlled, Pressure dressing applied. nj1 Administered Medications: 13:13 Drug: Ondansetron IVP 4 mg IVP once; over 2 minutes Route: IVP; Site: right forearm; nj1 13:15 Drug: morphine IVP or IV 4 mg IVP once over 4 mins Route: IVP; Infused Over: 4 mins; nj1 Site: right forearm; 15:58 Drug: Ketorolac IVP 15 mg IVP once Route: IVP; Site: right antecubital; nj1 16:30 Follow up: Response: No adverse reaction nj1 16:00 Drug: morphine IVP or IV 2 mg IVP once over 4 mins Route: IVP; Infused Over: 4 mins; nj1 Site: right antecubital; 16:30 Follow up: Response: No adverse reaction; Pain is decreased nj1 Medication: 16:30 VIS not applicable for this client. nj1 Outcome: 16:24 Discharge ordered by . rt 16:30 Discharged to home ambulatory, nj1 16:30 Condition: stable 16:30 Discharge instructions given to patient, Instructed on discharge instructions, follow up and referral plans. medication usage, Demonstrated understanding of instructions, follow-up care, medications, Prescriptions given X 1, 16:34 Patient left the ED. nj1 Signatures: Dispatcher [employer] EDMS Lauren Grullon RN RN db [place], Ryan, MD MD rt Isabel Su RN RN nj1 Lisa Trejo Corrections: (The following items were deleted from the chart) 12:36 12:35 PSHx: Heart Bypass December 06; db db
--- NOTE | 2024-02-06 16:25 | EDPHYS ---
Physician Documentation [facility] Name: Grsielda Barksdale Age: 73 yrs Sex: Female : 1950 Arrival Date: 02/06/2024 Time: 12:21 Bed 19 Private MD: ED Physician Anshu Reyes HPI: 02/05 16:02 This 73 yrs old Female presents to ER via Ambulatory with complaints of Flank Pain, rt Vomiting. 16:03 Patient presents to the ED with bilateral flank pain, worse on the right compared to rt the left as well as nausea, vomit. This occurred since patient had a bypass surgery. Patient denies any chest pain. Denies other acute complaints, symptoms are moderate in severity, no other aggravating alleviating factors. Patient is concerned that she has a kidney infection.. Historical: - Allergies: 12:35 No Known Allergies; db - PMHx: 12:35 DVT Left leg; Hypertension; Hyperlipidemia; Hypothyroidism; Myocardial infarction; db - PSHx: 12:35 Heart Bypass December 06; Ligation of fallopian tube; db - Immunization history:: Adult Immunizations unknown. - Infectious Disease History:: Denies. - Social history:: Smoking status: Patient/guardian denies using tobacco, Stopped _ months ago 2. - Family history:: not pertinent. ROS: 16:03 Constitutional: Negative for fever, chills, and weight loss, Cardiovascular: Negative rt for chest pain, palpitations, and edema, Respiratory: Negative for shortness of breath, cough, wheezing, and pleuritic chest pain, MS/Extremity: Negative for injury and deformity, Skin: Negative for injury, rash, and discoloration, Neuro: Negative for headache, weakness, numbness, tingling, and seizure, 16:03 Abdomen/GI: Positive for nausea and vomiting, 16:03 Back: Positive for flank pain, Negative for injury or acute deformity, Exam: 16:03 Constitutional: This is a well developed, well nourished patient who is awake, alert, rt and in no acute distress. Head/Face: Normocephalic, atraumatic. Chest/axilla: Normal chest wall appearance and motion. Nontender with no deformity. No lesions are appreciated. Cardiovascular: Regular rate and rhythm with a normal S1 and S2. No gallops, murmurs, or rubs. Normal PMI, no JVD. No pulse deficits. Respiratory: Lungs have equal breath sounds bilaterally, clear to auscultation and percussion. No rales, rhonchi or wheezes noted. No increased work of breathing, no retractions or nasal flaring. Abdomen/GI: Soft, non-tender, with normal bowel sounds. No distension or tympany. No guarding or rebound. No evidence of tenderness throughout. Skin: Warm, dry with normal turgor. Normal color with no rashes, no lesions, and no evidence of cellulitis. MS/ Extremity: Pulses equal, no cyanosis. Neurovascular intact. Full, normal range of motion. Neuro: Awake and alert, GCS 15, oriented to person, place, time, and situation. Cranial nerves II-XII grossly intact. Motor strength 5/5 in all extremities. Sensory grossly intact. Cerebellar exam normal. Normal gait. 16:03 Back: Mild tenderness in the upper lumbar region paraspinal, no midline tenderness, Vital Signs: 12:34 BP 156 / 65; Pulse 64; Resp 18; Temp 98.5(O); Pulse Ox 100% on R/A; Height 5 ft. 8 in. db ; Pain 9/10; 13:20 BP 152 / 54; Pulse 62; Resp 17; Pulse Ox 98% ; Pain 9/10; nj1 14:45 Pulse 61; Resp 17; Pulse Ox 99% ; Pain 8/10; nj1 16:03 BP 150 / 62; Pulse 52; Resp 16; Pulse Ox 97% on R/A; Pain 8/10; nj1 12:34 Pain Scale: Adult db 13:20 Pain Scale: Adult nj1 14:45 Pain Scale: Adult nj1 16:03 Pain Scale: Adult nj1 MDM: 12:42 Patient medically screened. rt 16:25 Differential diagnosis: Pyelonephritis, kidney stone, musculoskeletal back pain. Data rt reviewed: vital signs, nurses notes, lab test result(s), radiologic studies. I considered the following discharge prescriptions or medication management in the emergency department Medications were administered in the Emergency Department. See MAR. Independent interpretation of the following test(s) in the Emergency Department CT Scan: My interpretation is No ureteral stone seen on interpretation of CT scan images. Care significantly affected by the following chronic conditions: Hypertension. Counseling: I had a detailed discussion with the patient and/or guardian regarding the historical points, exam findings, and any diagnostic results supporting the discharge/admit diagnosis, lab results, radiology results, the need for outpatient follow up, to return to the emergency department if symptoms worsen or persist or if there are any questions or concerns that arise at home. Response to treatment: the patient's symptoms have markedly improved after treatment. 02/05 12:51 Order name: CBC with Diff; Complete Time: 14:07 rt 02/05 12:51 Order name: CMP; Complete Time: 14:07 rt 02/05 12:51 Order name: Lipase; Complete Time: 14:07 rt 02/05 12:51 Order name: Urinalysis w/ reflexes; Complete Time: 14:07 rt 02/05 13:26 Order name: CBC Smear Scan; Complete Time: 14:07 EDMS 02/05 12:51 Order name: CT Abd/Pelvis - IV Contrast Only; Complete Time: 15:23 rt 02/05 12:51 Order name: IV Saline Lock; Complete Time: 13:16 rt 02/05 12:51 Order name: Labs collected and sent; Complete Time: 13:16 rt 02/05 13:27 Order name: Misc. Order; Complete Time: 13:43 sp 02/05 13:29 Order name: Labs - recollect needed: green top; Complete Time: 13:43 sp Administered Medications: 13:13 Drug: Ondansetron IVP 4 mg IVP once; over 2 minutes Route: IVP; Site: right forearm; nj1 13:15 Drug: morphine IVP or IV 4 mg IVP once over 4 mins Route: IVP; Infused Over: 4 mins; nj1 Site: right forearm; 15:58 Drug: Ketorolac IVP 15 mg IVP once Route: IVP; Site: right antecubital; nj1 16:30 Follow up: Response: No adverse reaction nj1 16:00 Drug: morphine IVP or IV 2 mg IVP once over 4 mins Route: IVP; Infused Over: 4 mins; nj1 Site: right antecubital; 16:30 Follow up: Response: No adverse reaction; Pain is decreased nj1 Disposition Summary: 02/06/24 16:24 Discharge Ordered Notes: Location: Home rt Problem: new rt Symptoms: have improved rt Condition: Stable rt Diagnosis - Back pain rt Followup: rt - With: Private Physician - When: 2 - 3 days - Reason: Discharge Instructions: - Discharge Summary Sheet rt - Acute Back Pain, Adult rt Forms: - Medication Reconciliation Form rt - Antibiotic Education rt - Prescription Opioid Use rt - Patient Portal Instructions rt - Leadership Thank You Letter rt Prescriptions: - Cyclobenzaprine 10 mg Oral tablet - take 1 tablet ORAL route every 8 hours As needed; 15 tablet; Refills: 0, rt Product Selection Permitted Signatures: Dispatcher [employer] EDMS Angle Dubois sp Lauren Grullon, RN RN db Anshu Reyes MD MD rt Isabel Su RN RN nj1 Corrections: (The following items were deleted from the chart) 12:36 12:35 PSHx: Heart Bypass December 06; db db 12:52 12:52 CBC+H.LAB.BRZ ordered. EDMS EDMS 12:52 12:52 COMPREHENSIVE METABOLIC PANEL+C.LAB.BRZ ordered. EDMS EDMS 12:52 12:52 LIPASE+C.LAB.BRZ ordered. EDMS EDMS 12:52 12:52 Urinalysis+U.LAB.BRZ ordered. EDMS EDMS 12:52 12:52 Abdomen Pelvis W Con+CT.RAD.BRZ ordered. EDMS EDMS
[2024-02-06 16:48] VITALS: BP 150/62; TEMP 98.5; O2SAT 97
== END 2024-02-06 16:34 | disposition home or self-care (01) ==
LOC: ER 12:21
DX: M54.9 Dorsalgia, unspecified (principal); R11.2 Nausea with vomiting, unspecified
CPT/HCPCS: 85025; 81001; 36415; 83690; 80053; 74177; 99284; Q9967; J2405

== ENCOUNTER 2024-10-04 14:27 | Emergency (ER) | payer OTHER ==
--- NOTE | 2024-10-04 15:17 | RAD REPORT ---
EXAMINATION: CT HEAD WITHOUT CONTRAST CLINICAL INDICATION: Female, 73 years old.DIZZINESS TECHNIQUE: Axial CT images from the skull base to the vertex without intravenous contrast. Coronal an d sagittal reformatted images were created from the data set. One or more of the following dose reduction techniques were used: Automated exposure control, adjustment of the mA and/or kV according to patient size, and/or iterative reconstruction. Unless otherwise specified, incidental findings do not require dedicated imaging follow-up. [id number]. COMPARISON: 01/24/2024 FINDINGS: INTRACRANIAL: No acute intracranial hemorrhage. No hydrocephalus. No mass effect or midline shift. 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 VASCULATURE: No visualized abnormalities in the arteries or dural venous sinuses. SCALP/SKULL: No significant soft tissue or osseous abnormalities. SINUSES: The visualized paranasal sinuses and mastoid air cells are predominantly clear. IMPRESSION: No acute intracranial abnormality.
[2024-10-04 16:19] LABS: Absolute Eosinophils 0.1 K/uL (0-0.5); Absolute Lymphocytes (CBC) 0.6 K/uL (0.7-4.9); Absolute Monocytes 0.3 K/uL (0.1-1.3); Absolute Neutrophil 3.2 K/uL (1.8-8.0); Basophils % 0.8 % (0-1.3); Eosinophils % 2.4 % (0-4.4); Hematocrit 42.5 % (36.0-45.0); Lymphocytes % 14.4 % (15.3-44.8); MCH 26.4 pg (27.0-35.0); MCHC 32.8 g/dL (32.0-36.0); MCV 80.4 fL (80-100); MPV 8.2 fL (7.6-11.3); Monocytes % 7.7 % (3.3-12.3); Neutrophils % 74.7 % (41.7-73.7); Nucleated Red Blood Cells % 0.1 % (0-0); Platelets 232 thou/uL (152-406); RBC Red Blood Cell Count 5.29 M/uL (3.86-4.86); Red Cell Distribution Width 18.3 % (12.1-15.2)
[2024-10-04 16:39] LABS: Albumin 3.6 g/dL (3.4-5.0); Albumin/Globulin Ratio 0.9 (1.1-1.8); Anion Gap 6.3 mEq/L (5.0-15.0); Bilirubin Direct 0.2 mg/dL (0-0.2); Bilirubin Indirect, Calculated 0.2 mg/dL (0.2-0.8); Bilirubin Total 0.4 mg/dL (0.2-1.0); Magnesium 2.1 mg/dL (1.6-2.4); Potassium 4.3 mEq/L (3.5-5.1); Protein, Total 7.6 g/dL (6.4-8.2); Troponin High Sensitivity 6.2 pg/mL (<58.9)
--- NOTE | 2024-10-04 18:27 | ER ---
Nurse's Notes [facility] Name: Griselda Barksdale Age: 73 yrs Sex: Female : 1950 Arrival Date: 10/04/2024 Time: 14:27 Bed 25 Private MD: Diagnosis: Dizziness and giddiness Presentation: 10/04 14:37 Chief complaint: Patient states: Dizziness began around 1200 today. Denies pain. ld1 Coronavirus screen: At this time, the client does not indicate any symptoms associated with coronavirus-19. Ebola Screen: No symptoms or risks identified at this time. Initial Sepsis Screen: Does the patient meet any 2 criteria? No. Patient's initial sepsis screen is negative. Does the patient have a suspected source of infection? No. Patient's initial sepsis screen is negative. Risk Assessment: Do you want to hurt yourself or someone else? Patient reports no desire to harm self or others. Onset of symptoms was October 04, 2024 at 14:38. 14:37 Method Of Arrival: Wheelchair ld1 14:37 Acuity: FILEMON 3 ld1 Triage Assessment: 14:38 General: Appears in no apparent distress. comfortable, Behavior is calm, cooperative, ld1 appropriate for age. Pain: Denies pain. EENT: No signs and/or symptoms were reported regarding the EENT system. Neuro: Level of Consciousness is awake, alert, obeys commands, Oriented to person, place, time, situation, Appropriate for age. Cardiovascular: Capillary refill < 3 seconds Patient's skin is warm and dry. Respiratory: Airway is patent Respiratory effort is even, unlabored. GI: Abdomen is round non-distended. : No signs and/or symptoms were reported regarding the genitourinary system. Derm: No signs and/or symptoms reported regarding the dermatologic system. Musculoskeletal: No signs and/or symptoms reported regarding the musculoskeletal system. Historical: - Allergies: 14:38 No Known Allergies; ld1 - PMHx: 14:38 DVT Left leg; Hyperlipidemia; Hypertension; Hypothyroidism; Myocardial infarction; ld1 - PSHx: 14:38 Heart Bypass December 06; Heart Bypass December 06; Ligation of fallopian tube; CABG ld1 (Ligation of fallopian tube); - Immunization history:: Adult Immunizations up to date. - Infectious Disease History:: Denies. - Social history:: Smoking status: Patient denies any tobacco usage or history of. Screenin:45 [facility] ED Fall Risk Assessment (Adult) History of falling in the last 3 months, jb4 including since admission No falls in past 3 months (0 pts) Confusion or Disorientation No (0 pts) Intoxicated or Sedated No (0 pts) Impaired Gait No (0 pts) Mobility Assist Device Used No (0 pt) Altered Elimination No (0 pt) Score/Fall Risk Level 0 - 2 = Low Risk Oriented to surroundings, Maintained a safe environment. Abuse screen: Denies threats or abuse. Nutritional screening: No deficits noted. Tuberculosis screening: No symptoms or risk factors identified. Assessment: 16:00 Reassessment: Patient appears in no apparent distress at this time. Patient and/or jb4 family updated on plan of care and expected duration. Pain level reassessed. Patient is alert, oriented x 3, equal unlabored respirations, skin warm/dry/pink. 17:00 Reassessment: Patient appears in no apparent distress at this time. Patient and/or jb4 family updated on plan of care and expected duration. Pain level reassessed. Patient is alert, oriented x 3, equal unlabored respirations, skin warm/dry/pink. 18:15 General: See paper charting for downtime. kb3 Vital Signs: 14:37 BP 179 / 91; Pulse 81; Resp 18; Temp 97.6(TE); Pulse Ox 98% on R/A; Weight 87.09 kg; ld1 Height 5 ft. 8 in. ; Pain 0/10; 16:45 BP 148 / 107; Pulse 70; Resp 16; Pulse Ox 99% on R/A; jb4 17:45 BP 170 / 71; Pulse 66; Resp 16; Pulse Ox 97% on R/A; jb4 14:37 Body Mass Index 29.19 (87.09 kg, 172.72 cm) ld1 14:37 Pain Scale: Adult ld1 ED Course: 14:28 Patient arrived in ED. im 14:31 Beba Noguera MD is Attending Physician. sp3 14:38 Triage completed. ld1 14:38 Arm band placed on right wrist. ld1 15:08 CT Head Brain wo Cont In Process Unspecified. EDMS 17:45 Patient has correct armband on for positive identification. Bed in low position. Call jb4 light in reach. Side rails up X 1. Provided Education on: plan of care. 18:00 No provider procedures requiring assistance completed. IV discontinued, intact, jb4 bleeding controlled, No redness/swelling at site. Pressure dressing applied. Administered Medications: 15:45 Drug: Meclizine PO 25 mg PO once Route: PO; ld1 16:45 Follow up: Response: No adverse reaction; Marked relief of symptoms jb4 Medication: 17:45 VIS not applicable for this client. jb4 Outcome: 18:15 Discharged to home ambulatory, kb3 18:15 Condition: stable 18:15 Discharge instructions given to patient, Instructed on discharge instructions, follow up and referral plans. medication usage, Demonstrated understanding of instructions, follow-up care, medications, Prescriptions given X 1, 18:17 Discharge ordered by . kb3 18:17 Patient left the ED. kb3 Signatures: Dispatcher [employer] EDMS Nicholas Ulloa RN RN jb4 Hiwot Lei RN RN ld1 Beba Noguera MD MD sp3 Hafsa Castellanos RN RN kb3 Lisa Trejo Corrections: (The following items were deleted from the chart) 14:39 14:38 PSHx: Heart Bypass December 07, 2023; ld1 ld1
--- NOTE | 2024-10-04 18:27 | EDPHYS ---
Physician Documentation [facility] Name: Griselda Barksdale Age: 73 yrs Sex: Female : 1950 Arrival Date: 10/04/2024 Time: 14:27 Bed 25 Private MD: ED Physician Beba Noguera HPI: 10/04 15:42 This 73 yrs old Female presents to ER via Wheelchair with complaints of Dizziness. sp3 15:42 73-year-old female with a history of hyperlipidemia, hypertension, prior CO with CABG sp3 performed 11 months ago now presents to the ED with chief complaint mild headache, stuffiness and "dizziness". She denies any significant vertigo. She also denies any head trauma, fever, changes in vision, focal neurological deficit, speech changes, or any other signs or symptoms on ROS at this time. She is currently on Eliquis and aspirin and is compliant on both. Her blood pressure is slightly elevated today at 179 and she states that it normally is in the 150 range.. Historical: - Allergies: 14:38 No Known Allergies; ld1 - PMHx: 14:38 DVT Left leg; Hyperlipidemia; Hypertension; Hypothyroidism; Myocardial infarction; ld1 - PSHx: 14:38 Heart Bypass December 06; Heart Bypass December 06; Ligation of fallopian tube; CABG ld1 (Ligation of fallopian tube); - Immunization history:: Adult Immunizations up to date. - Infectious Disease History:: Denies. - Social history:: Smoking status: Patient denies any tobacco usage or history of. ROS: 15:43 Constitutional: Negative for fever, chills, and weight loss, Eyes: Negative for injury, sp3 pain, redness, and discharge, ENT: Negative for injury, pain, and discharge, Neck: Negative for injury, pain, and swelling, Cardiovascular: Negative for chest pain, palpitations, and edema, Respiratory: Negative for shortness of breath, cough, wheezing, and pleuritic chest pain, Abdomen/GI: Negative for abdominal pain, nausea, vomiting, diarrhea, and constipation, Back: Negative for injury and pain, MS/Extremity: Negative for injury and deformity, Skin: Negative for injury, rash, and discoloration, Psych: Negative for depression, anxiety, suicide ideation, homicidal ideation, and hallucinations, Allergy/Immunology: Negative for hives, rash, and allergies, Endocrine: Negative for neck swelling, polydipsia, polyuria, polyphagia, and marked weight changes, Hematologic/Lymphatic: Negative for swollen nodes, abnormal bleeding, and unusual bruising, 15:43 All other systems are negative, Exam: 15:44 Constitutional: This is a well developed, well nourished patient who is awake, alert, sp3 and in no acute distress. Head/Face: Normocephalic, atraumatic. Eyes: Pupils equal round and reactive to light, extra-ocular motions intact. Lids and lashes normal. Conjunctiva and sclera are non-icteric and not injected. Cornea within normal limits. Periorbital areas with no swelling, redness, or edema. ENT: Nares patent. No nasal discharge, no septal abnormalities noted. External auditory canals are clear. Oropharynx with no redness, swelling, or masses, exudates, or evidence of obstruction, uvula midline. Mucous membranes moist. Neck: Trachea midline, no thyromegaly or masses palpated, and no cervical lymphadenopathy. Supple, full range of motion without nuchal rigidity, or vertebral point tenderness. No Meningismus. Chest/axilla: Normal chest wall appearance and motion. Nontender with no deformity. No lesions are appreciated. Cardiovascular: Regular rate and rhythm with a normal S1 and S2. No gallops, murmurs, or rubs. Normal PMI, no JVD. No pulse deficits. Respiratory: Lungs have equal breath sounds bilaterally, clear to auscultation and percussion. No rales, rhonchi or wheezes noted. No increased work of breathing, no retractions or nasal flaring. Abdomen/GI: Soft, non-tender, with normal bowel sounds. No distension or tympany. No guarding or rebound. No evidence of tenderness throughout. Back: No spinal tenderness. No costovertebral tenderness. Full range of motion. Skin: Warm, dry with normal turgor. Normal color with no rashes, no lesions, and no evidence of cellulitis. MS/ Extremity: Pulses equal, no cyanosis. Neurovascular intact. Full, normal range of motion. Neuro: Awake and alert, GCS 15, oriented to person, place, time, and situation. Cranial nerves II-XII grossly intact. Motor strength 5/5 in all extremities. Sensory grossly intact. Cerebellar exam normal. Normal gait. Psych: Awake, alert, with orientation to person, place and time. Behavior, mood, and affect are within normal limits. Vital Signs: 14:37 BP 179 / 91; Pulse 81; Resp 18; Temp 97.6(TE); Pulse Ox 98% on R/A; Weight 87.09 kg; ld1 Height 5 ft. 8 in. ; Pain 0/10; 16:45 BP 148 / 107; Pulse 70; Resp 16; Pulse Ox 99% on R/A; jb4 17:45 BP 170 / 71; Pulse 66; Resp 16; Pulse Ox 97% on R/A; jb4 14:37 Body Mass Index 29.19 (87.09 kg, 172.72 cm) ld1 14:37 Pain Scale: Adult ld1 MDM: 14:41 Medical Screening Exam initiated sp3 15:44 Data reviewed: vital signs, nurses notes, old medical records, lab test result(s), EKG, sp3 radiologic studies. ED course: 73-year-old female with dizziness and mild headache. Differential diagnosis includes viral illness, idiopathic headache, vertigo, hypertensive headache, among others. I am not highly suspicious of CVA, CO, sepsis, shock or any other critical process. Workup will include CT scan of the head, general labs, EKG and general supportive care. Meclizine 25 mg p.o. x 1. Patient is in no acute distress and resting comfortably. Probable discharge if workup negative.. 10/04 14:43 Order name: Basic Metabolic Panel 3 10/04 14:43 Order name: CBC with Diff 3 10/04 14:43 Order name: Hepatic Function 3 10/04 14:43 Order name: Magnesium 3 10/04 14:43 Order name: Troponin High Sensitivity 3 10/04 14:43 Order name: CT Head Brain wo Cont; Complete Time: 15:18 3 10/04 14:43 Order name: EKG; Complete Time: 14:43 3 10/04 14:43 Order name: Cardiac monitoring; Complete Time: 18:31 3 10/04 14:43 Order name: EKG - Nurse/Tech; Complete Time: 18:31 3 10/04 14:43 Order name: IV Saline Lock; Complete Time: 18:31 3 10/04 14:43 Order name: Labs collected and sent; Complete Time: 18:31 3 10/04 14:43 Order name: NPO; Complete Time: 18:31 sp3 Administered Medications: 15:45 Drug: Meclizine PO 25 mg PO once Route: PO; ld1 16:45 Follow up: Response: No adverse reaction; Marked relief of symptoms jb4 Disposition Summary: 10/04/24 18:17 Discharge Ordered Notes: Location: Home kb3 Condition: Stable kb3 Diagnosis - Dizziness and giddiness kb3 Forms: - Medication Reconciliation Form kb3 - Antibiotic Education kb3 - Prescription Opioid Use kb3 - Patient Portal Instructions kb3 - Leadership Thank You Letter kb3 Signatures: Dispatcher [employer] EDHiwot Ignacio RN RN ld1 Beba Noguera MD MD sp3 Hafsa Castellanos RN RN kb3 Nicholas Ulloa RN jb4 Corrections: (The following items were deleted from the chart) 14:39 14:38 PSHx: Heart Bypass December 07, 2023; ld1 ld1
[2024-10-04 19:22] VITALS: BP 179/91; TEMP 97.6; O2SAT 98
== END 2024-10-04 18:17 | disposition home or self-care (01) ==
LOC: ER 14:27
DX: R42 Dizziness and giddiness (principal); I10 Essential (primary) hypertension; I25.2 Old myocardial infarction; Z95.1 Presence of aortocoronary bypass graft
CPT/HCPCS: 36415; 70450; 80048; 80076; 83735; 84484; 85025; 93005

== ENCOUNTER 2025-01-09 02:22 | Emergency (ER) | payer OTHER ==
--- OUTSIDE RECORDS SUMMARY | 2025-01-09 02:31 | XMS REPORT | Continuity of Care Document ---
Author Name Unknown Address [address] [facility] [address] [place] [address] [facility] Address [address] [address] [place] [address] Care Team Providers Care Exercise Scientist Name Role Phone Victoria Hernández Primary Care Physician + Victoria Hernández Attending Clinician Unavail able CHELSEA SALAMANCA Attending Clinician Unavailable JOSE ANTONIO BENNETT Attending Clinician Unavailable JOSE ANTONIO BENNETT Attending Clinician Unavailable Jose Antonio Bennett MD Attending Clinician [phone] FERNANDO GILL Attending Clinician Unavailable Fernando Gill DO Attending Clinician [phone] Chelsea Salamanca MD Attending Clinician [phone] GINA JACKSON Attending Clinician Unavailable GINA JACKSON Attending Clinician Unavailable Gina Jackson MD Attending Clinician [phone] ERICK APONTE Attending Clinician Unavailable ERICK APONTE Attending Clinician Unavailable Erick Aponte MD Attending Clinician Pob, [facility] Main Attending Clinician Unavailabl e Doctor Unassigned, Torrey Attending Clinician U chavez Salamanca MD, Chelsea Attending Clinician Bc CONTRERAS, Annamarie Attending Clinician Unavaillive Salmeron RN, Sharita Alvarez Attending Clinician Unavailab Martha BRYANT, Girish Attending Clinician ROSS DIALLO Attending Clinician Milli ERICK Mera Admitting Clinician Unavailable Erick Aponte MD Admitting Clinician [phone] JOSE ANTONIO BENNETT Admitting Clinician Unavailable Hilda BRYANT, Jose Antonio Admitting Clinician [phone] ARNALDO FREITAS Admitting Clinician Unavail able Payers Payer Name Policy Type Policy Number Effective Date Expirati on Date Source [employer] MEDICARE 53 [id number] 2022 00:00:00 [facility] HUMANCOUNTS INCLUDE 234 BEDS AT THE [facility] [id number] 2022 00:00:00 MEDICAID OF [place] [id number] 2024 00:00:00 Problems Condition Name Condition Details Condition Category Status Onset Date Resolution Date Last Treatment Date Treating Clinician Comments Source Chronic heart failure with preserved ejection fraction Chronic heart failure with preserved ejection fraction Disease Active 10-31 00:00: 00 [facility] Pulmonary hypertensi on Pulmonary hypertensi on Disease Active 10-31 00:00: 00 [facility] Coronary artery disease involving [place] coronary artery of [place] heart without angina pectoris Coronary artery disease involving [place] coronary artery of [place] heart without angina pectoris Disease Active 12-31 00:00: 00 [facility] HFrEF (heart failure with reduced ejection fraction) HFrEF (heart failure with reduced ejection fraction) Disease Active 12-31 00:00: 00 [facility] Hyperlipid emia, unspecifie d hyperlipid emia type Hyperlipid emia, unspecifie d hyperlipid emia type Disease Active 12-31 00:00: 00 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 NSTEMI (CHEST PAIN) NSTEMI (CHEST PAIN) Active 12/04/2023 [facility] Diagnosis Active 12-03 00:00: 00 2023-12-04 18:27:00 Matilda Garcia CAD CAD Active 12/04/2023 [facility] Diagnosis Active 12-03 00:00: 00 2023-12-15 21:50:00 Matilda Garcia ILLNESS, UNSPECIFIE D ILLNESS, UNSPECIFIE D Active [facility] Diagnosis Active 2023-12-04 18:27:00 Matilda Garcia ATHSCL HEART DISEASE OF [place] CORONARY ATHSCL HEART DISEASE OF [place] CORONARY Active [facility] Diagnosis Active 2023-12-15 21:50:00 Matilda Garcia ATHEROSCLE ROTIC HEART DISEASE OF [place] CORONARY YANNA ATHEROSCLE ROTIC HEART DISEASE OF [place] CORONARY YANNA Active [facility] Diagnosis Active 2023-12-10 18:05:00 Matilda Garcia Illness, unspecifie d Illness, unspecifie d 12/07/2023 [facility] Problem 2023-12-07 12:48:20 Matilda Garcia Gastroesop hageal reflux disease (disorder) Gastroesop hageal reflux disease (disorder) Active Problem 12/07/2023 [facility] Problem Active 2023-12-07 12:48:20 Matilda Garcia History of - Deep Vein Thrombosis (context-d ependent category) History of - Deep Vein Thrombosis (context-d ependent category) Active Problem 12/07/2023 [facility] Problem Active 2023-12-07 12:48:20 Matilda Garcia Hypertensi ve disorder, systemic arterial (disorder) Hypertensi ve disorder, systemic arterial (disorder) Active Problem 12/07/2023 [facility] Problem Active 2023-12-07 12:48:20 Matilda Garcia Obese class I (finding) Obese class I (finding) Active Problem 12/07/2023 [facility] Problem Active 2023-12-07 12:48:20 [facility] [place] Hypertensi ve heart failure Hypertensi ve heart disease with heart failure Problem [facility] [id number] Obesity (BMI 30-39.9) Problem [facility] Tobacco user Nicotine dependence with current use Problem [facility] [id number] Cigarette nicotine dependence without complicati on Problem [facility] Hypothyroi dism Hypothyroi dism, unspecifie d Problem [facility] [id number] Chronic systolic congestive heart failure Problem [facility] [id number] Pulmonary emphysema, unspecifie d emphysema type Problem [facility] [id number] Essential tremor Problem [facility] [id number] GHADA (generaliz ed anxiety disorder) Problem [facility] [id number] Polyneurop athy Problem [facility] [id number] Acquired hypothyroi dism Problem [facility] Normocytic anemia Normocytic anemia Problem [facility] [id number] Overweight Problem Com [facility] [id number] Primary insomnia Problem [facility] [id number] Osteoporos is without current pathologic al fracture, unspecifie d osteoporos is type Problem [facility] [id number] Paroxysmal atrial fibrillati on Problem [facility] [id number] Vitamin D deficiency Problem [facility] [id number] Gastroesop hageal reflux disease without esophagiti s Problem [facility] [id number] Essential hypertensi on Problem [facility] [id number] Mixed hyperlipid emia Problem [facility] [id number] Other obesity due to excess calories Problem [facility] [id number] Bilateral hearing loss, unspecifie d hearing loss type Problem [facility] [id number] Chronic kidney disease, unspecifie d Problem [facility] [id number] Subclinica l hyperthyro idism Problem [facility] [id number] Bilateral carotid artery stenosis Problem [facility] [id number] Chronic heart failure with preserved ejection fraction Problem [facility] Allergies, Adverse Reactions, Alerts Allergy Name Allergy Type Status Severity Reaction(s) Onset Date Inactive Date Treating Clinician Comments Source NO KNOWN ALLERGIE S [facility] Active dizziness [facility] Family History Family Member Diagnosis Comments Start Date Stop Date Sourc e Natural brother Coronary Heart Disease [facility] Natural brother Stroke [facility] Natural father Coronary Heart Disease [facility] Natural father Stroke Unive [facility] Social History Social Habit Start Date Stop Date Quantity Comments Source Sex Assigned At [facility] History of tobacco use Cigarette Smoker [facility] Sexual orientation U [facility] ASSERTION Possible [facility] Tobacco use and exposure 2024-12-26 00:00:00 2024-12-26 00:00:00 Smokeless tobacco non-user [facility] Tobacco Comment 2024-12-26 00:00:00 2024-12-26 00:00:00 Smoking 6 cigarettes a day [facility] History of Social function 2024-01-01 00:00:00 2024-01-01 00:00:00 [facility] Smoking Status Start Date Stop Date Source Smokes tobacco daily 2024-12-26 00:00:00 [facility] Ex-smoker 2024-01-01 00:00:00 2024-01-01 00:00:00 U [facility] Social History 2023-12-04 23:47:51 Tamara Miller Medications Ordered Medication Name Filled Medication Name Start Date Stop Date Current Medication? Ordering Clinician Indication Dosage Frequency Signature (SIG) Comments Components Source amLODIPine Besylate 10 MG amLODIPine Besylate 10 MG 3 00:00: 00 No 1{table t} QD amLODIPine Besylate 10 MG Pantoprazol e Sodium 40 MG Pantoprazol e Sodium 40 MG 3- 00:00: 00 No 1{table t} QD Pantoprazo le Sodium 40 MG sulfur hexafluorid e microsphr (LUMASON) injection 5 mL 10-12 19:15: 00 10-12 19:15 :00 No [id number] 5mL 5 mL, Intravenou s, ONCE, 1 dose, On Thu10/12/24 at 1315, Routine [facility] amLODIPine (NORVASC) tablet 10 mg 10-12 15:00: 00 10-13 00:39 :39 No 10mg 10 mg, Oral, DAILY, First dose on Thu10/12/24 at 0900, Until Discontinu ed, Routine [facility] escitalopra m oxalate (LEXAPRO) tablet 5 mg 10-12 15:00: 00 10-12 22:39 :35 No 5mg 5 mg, Oral, DAILY, First dose on Thu10/12/24 at 0900, Until Discontinu ed, Routine [facility] pantoprazol e (PROTONIX) EC tablet 40 mg 10-12 15:00: 10-12 22:39 :35 No 40mg 40 mg, Oral, DAILY, First dose on Thu10/12/24 at 0900, Until Discontinu ed [facility] ezetimibe (ZETIA) tablet 10 mg 10-12 15:00: 00 10-12 22:39 :35 No 10mg 10 mg, Oral, DAILY, First dose on Thu10/12/24 at 0900, Until Discontinu ed, Routine [facility] aspirin chewable tablet 81 mg 10-12 15:00: 10-12 22:39 :35 No 81mg 81 mg, Oral, DAILY, First dose on Thu10/12/24 at 0900, Until Discontinu ed, [facility] magnesium oxide (MAG-OX 400) 400 mg (241.3 mg magnesium) tablet 400 mg 10-12 12:15: 10-12 14:36 :00 No 400mg 400 mg, Oral, Once, 1 dose, On Thu10/12/24 at 0615, Routine [facility] levothyroxi ne (SYNTHROID) tablet 100 mcg 10-12 12:00: 00 10-12 22:39 :35 No 100ug 100 mcg, Oral, QAM-0600, First dose on Thu10/12/24 at 0600, Until Discontinu ed, [facility]ine [facility] melatonin (MELATIN) tablet 3 mg 10-12 03:00: 00 10-12 22:39 :35 No 3mg 3 mg, Oral, QHS, First dose on Thu10/11/24 at 2100, Until Discontinu ed, Routine [facility] rosuvastati n (CRESTOR) tablet 40 mg 10-12 03:00: 00 10-12 22:39 :35 No 40mg 40 mg, Oral, QHS, First dose on Thu10/11/24 at 2100, Until Discontinu ed, Routine [facility] primidone (MYSOLINE) tablet 100 mg 10-12 03:00: 00 10-12 22:39 :35 No 100mg 100 mg, Oral, QHS, First dose on Thu10/11/24 at 2100, Until Discontinu ed, [facility] docusate (COLACE) capsule 100 mg 10-12 02:00: 00 10-12 22:39 :35 No 100mg 100 mg, Oral, BID, First dose on Thu10/11/24 at 1999, Until Discontinu ed, [facility] metoprolol tartrate (LOPRESSOR) tablet 12.5 mg 10-12 02:00: 00 10-12 22:39 :35 No 12.5mg 12.5 mg, Oral, BID, First dose on Thu10/11/24 at 1999, Until Discontinu ed, Routine [facility] apixaban (ELIQUIS) tablet 5 mg 10-12 02:00: 00 10-12 22:39 :35 No 1358 5mg 5 mg, Oral, BID, First dose on Thu10/11/24 at 1999, Until Discontinu ed, Routine, Indication s: Non-Valvul ar Atrial Fibrillati on [facility] it[facility] amLODIPine 10 mg tablet 10-12 00:00: 00 Yes [id number] 10mg Take 1 tablet by mouth in the morning. [facility] sucralfate 1 gram tablet 10-12 00:00: 00 10-26 04:59 :00 Yes [id number] 1g Take 1 tablet by mouth every 6 (six) hours for [address] [facility] acetaminoph en (TYLENOL) tablet 650 mg 10-11 22:27: 50 10-12 22:39 :[address] [facility] lidocaine 1% (PF) (XYLOCAINE) injection 10-11 19:02: 51 10-11 21:26 :39 No ONCE INTRA PROCEDURE, Starting on Thu10/11/24 at 1302, Until Thu10/11/24 at 1526, Routine, CV Intraproce dure [facility] amLODIPine (NORVASC) 10 mg tablet 10-11 19:00: 39 10-11 00:00 :00 No 10mg Take 1 tablet by mouth in the morning. [facility] apixaban (ELIQUIS) 5 mg tablet 2023-08 00:00: 00 Yes 1358 5mg Take 1 tablet by mouth in the morning and 1 tablet in the evening. Indication s: atrial fibrillati on [facility] silver nitrate applicator 1 Applicator 2023-08 16:00: 00 06-13 15:15 :00 No 1{appli cator} 1 Applicator , Topical, ONCE, 1 dose, On Thu06/13/24 at 1100, Routine [facility] FENTanyl (PF) (SUBLIMAZE) injection 25 mcg 2023-08 13:56: 15 06-13 18:46 :50 No 25ug 25 mcg, Slow IV Push, Q5MIN PRN, 4 doses, Starting on Thu06/13/24 at 0856, Until Thu06/13/24 at 1346, Routine, Pain Scale 4-6, PACU [facility] ondansetron (ZOFRAN (PF)) injection 4 mg 2023-08 13:56: 15 06-13 18:46 :50 No 4mg 4 mg, Slow IV Push, PRN, 1 dose, Starting on Thu06/13/24 at 0856, Until Thu06/13/24 at 1346, Routine, Nausea and Vomiting (N/V), PACU [facility] HYDROcodone -acetaminop hen (NORCO 5) tablet 1 tablet 2023-08 13:53: 14 06-13 18:46 :50 No 1{tbl} 1 tablet, Oral, PRN, 1 dose, Starting on Thu06/13/24 at 0853, Until Thu06/13/24 at 1346, Routine, Pain (scale 4-6), DSU Recovery [facility] acetaminoph en (TYLENOL) tablet 650 mg 2023-08 13:53: 14 06-13 18:46 :50 No 650mg 650 mg, Oral, PRN, 1 dose, Starting on Thu06/13/24 at 0853, Until Thu06/13/24 at 1346, Routine, Pain (scale 1-3), DSU Recovery [facility] lidocaine 1% (PF) (XYLOCAINE) injection 2023-08 12:57: 00 06-13 13:59 :52 No PRN, Starting on Thu06/13/24 at 0757, Until Thu06/13/24 at 0859, Routine, Intra-op [facility] heparin 10,000 units in NS 1000 mL for vascular 2023-08 12:29: 00 06-13 13:59 :52 No PRN, Starting on Thu06/13/24 at 0729, Intra-op [facility] clopidogreL 75 mg tablet 2023-08 00:00: 00 10-11 00:00 :00 No [id number] 75mg Take 1 tablet by mouth in the morning. [facility] Rosuvastati n Calcium 40 MG Rosuvastati n Calcium 40 MG 2023-08 00:00: 00 No 1{table t} QD Rosuvastat in Calcium 40 MG iopamidol (ISOVUE 370-500 mL) injection 70 mL 2023-08 20:30: 00 05-19 19:35 :00 No [id number] 70mL 70 mL, Intravenou s, ONCE, 1 dose, On Sirisha 05/19/24 at 1530, Routine [facility] furosemide 40 mg tablet 03-28 15:56: 20 10-11 00:00 :00 No TAKE ONE-HALF (1/2) TABLET(S) BY MOUTH DAILY. [facility] rosuvastati n 40 mg tablet 03-28 15:54: 18 Yes 40mg Take 1 tablet by mouth at bedtime. [facility] foLIC acid 1 mg tablet 03-28 15:54: 18 Yes 1mg Take 1 tablet by mouth in the morning. [facility] sacubitriL- valsartan (ENTRESTO) 49-51 mg tablet 03-28 15:54: 18 10-11 00:00 :00 No 1{tbl} Take 1 tablet by mouth in the morning and 1 tablet in the evening. [facility] Vitamin B12 Vitamin B12 02-16 00:00: 00 No 1{table t} QD Vitamin B12 Cyanocobala min Cyanocobala min 02-16 00:00: 00 No 1000ug [facility] ezetimibe 10 mg tablet 02-16 00:00: 00 Yes [id number] 10mg Take 1 tablet by mouth in the morning. [facility] Folic Acid 1 MG Folic Acid 1 MG 02-04 00:00: 00 No 1{table t} QD Folic Acid 1 MG Vitamin D3 125 MCG (5000 UT) Vitamin D3 125 MCG (5000 UT) 01-26 00:00: 00 No 1{table t} QD Vitamin D3 125 MCG (5000 UT) metoprolol tartrate 25 mg tablet 17 10:43: 04 Yes 25mg Take 1 tablet by mouth in the morning and 1 tablet in the evening. [facility] metoprolol tartrate 25 mg tablet 12-31 10:43: 04 Yes 12.5mg Take 0.5 tablets by mouth in the morning and 0.5 tablets in the evening. [facility] primidone 50 mg tablet 12-31 10:43: 04 Yes 100mg Take 2 tablets by mouth at bedtime. [facility] gabapentin 100 mg capsule 12-31 10:41: 50 05-30 00:00 :00 No 100mg Take 1 capsule by mouth in the morning and 1 capsule at noon and 1 capsule in the evening. [facility] calcium carbonate/v itamin D3 (VITAMIN D-3 ORAL) 12-31 10:40: 10 Yes 65mg Take by mouth. [facility] atorvastati n (LIPITOR) 40 mg tablet 12-31 10:39: 32 05-09 00:00 :00 No 40mg Take 1 tablet by mouth at bedtime. [facility] aspirin 81 mg chewable tablet 12-31 10:38: 59 Yes 81mg Take 1 tablet by mouth in the morning. [facility] apixaban (ELIQUIS) 5 mg tablet 12-31 10:38: 59 05-31 00:00 :00 No 10mg Take 2 tablets by mouth in the morning and 2 tablets in the evening. [facility] amiodarone 200 mg tablet 12-31 10:37: 32 10-12 00:00 :00 No 200mg Take 1 tablet by mouth in the morning. [facility] furosemide (Lasix) 40 MG tablet 12-27 10:02: 29 Yes 40mg QD Take 40 mg by mouth 1 (one) time each day. [facility] Entresto 49-51 MG tablet 12-27 10:02: 29 Yes 1{tbl} Q.5D Take 1 tablet by mouth in the morning and 1 tablet in the evening. [facility] apixaban (Eliquis) 5 MG tablet 12-20 00:00: 00 Yes 5mg 5 mg. [facility] amiodarone (Pacerone) 200 MG tablet 12-20 00:00: 00 Yes 200mg 200 mg. [facility] atorvastati n (Lipitor) 40 MG tablet 12-20 00:00: 00 Yes 40mg 40 mg. [facility] EPINEPHrine 4 mg in NS 250 mL (Titrate.) IV 4 mg + Sodium Chloride 0.9% IV 246 mL 12-06 11:44: 00 Yes Notes: (Same as: Adrenalin) Suremed - Injectable drug used as inhalation treatment. MEDICATION WASTE Product Size: 1 mg Product Wasted: ___ mg Matilda Garcia Insulin (Regular) additive 100 unit [0.1 unit/kg/hr] + 12-06 11:44: 00 Yes Notes: Final Concentrat ion 1unit/1ml; Total volume = 100 mL WASTE: F/P - Black; E - Municipal Trash Bin Matilda Garcia norepinephr ine 8 mg in 250 mL (Titrate.) IV 8 mg 12-06 11:44: 00 Yes Notes: Same as: Levophed. Administer by either central venous catheter or peripheral ly-inserte d central catheter (PICC) line. Concentrat ion: 0.032 mg / mL Matilda Garcia phenylephri ne 50 mg in NS 250 mL (Titrate.) IV 50 mg + Sodium Chloride 0.9% IV 245 mL 12-06 11:44: 00 Yes Notes: (Same as: Phenylephr ine) Matilda Garcia Precedex 400 microgram in NS 100 mL (Titrate.) IV 400 microgram 12-06 11:44: 00 Yes Notes: (Same as: Precedex) Matilda Garcia ceFAZolin + sterile water 20 mL 12-06 00:00: 00 Yes Notes: (Same As: Jonelle Gómez) MEDICATION WASTE Product Size: 1000 mg Product Wasted: ___ mg Chenelmo erika Garcia vancomycin + Sodium Chloride 0.9% IV 250 mL 12-06 00:00: 00 Yes 2001 mg: infuse over 2.5 hours For adult patients only: Round to nearest 250 mg per Medical Staff approval MEDICATION WASTE Product Size: 1000 mg Product Wasted: ___ mg Matilda Garcia Sodium Chloride 0.9% (titrate) 250 mL 12-05 23:44: 00 Yes 250 mL, Rate: To prime line and flush remaining blood products., Dosing Weight 95.1, kg, Route: IV, Total Volume: 250, Priority: Routine, Start Date: 12/06/23 18:44:00 CDT, Duration: 1 day, Stop date: 12/07/23 18:43:00 CDT, Replace Every: 24 hr, 0 Matilda Joseann atorvastati n 12-05 02:00: 00 Yes Notes: (Same as: Lipitor) Matilda Garcia metoprolol tartrate 12-05 02:00: 00 Yes Notes: (Same as: Lopressor) Matilda Garcia normal saline 0.9% IV 1,000 mL 12-04 15:12: 00 No 1,000 mL, Rate: 83.33 ml/hr, Infuse over: 12 hr, Route: IV, Dosing Weight 95.1 kg, Total Volume: 1,000, Start date: 12/05/23 10:12:00 CDT, Duration: 30 day, Stop date: 01/04/24 10:11:00 CDT, BSA: 2.16 m2, 0 Matilda erika Garcia docusate 12-04 14:00: 00 Yes Notes: (Same as: Colace) (Do Not Crush) Matilda Garcia famotidine 20 mg oral tablet 12-04 14:00: 00 Yes Notes: (Same as: Pepcid) Matilda Garcia escitalopra m 12-04 14:00: 00 Yes Notes: (Same as: Lexapro) Matilda Garcia levothyroxi ne 12-04 14:00: 00 Yes Notes: Take 1 hour before or 2 hours after meal; Enteral feeds may interefere with the absorption of this medication . (Same as:Levothr oid, Synthroid) Matilda Garcia losartan 12-04 14:00: 00 Yes Notes: (Same as: Cozaar) Matilda Garcia primidone 12-04 14:00: 00 Yes Notes: (Same as: Mysoline) Matilda Garcia senna 12-04 02:00: 00 Yes Notes: (Same as: Senokot) Matilda Garcia Dextrose 10% in Water IV 12-04 01:34: 00 Yes 125 mL, Rate: 999 ml/hr, Infuse over: 0.1 hr, Route: IV, Total Volume: 125, Start date: 12/04/23 20:34:00 CDT, Duration: 30 day, Stop date: 01/03/24 20:33:00 CDT, PRN Blood Glucose Results, 0 Matilda Garcia Heparin 30 unit/kg Bolus (Heparin Dosing Weight) 12-04 01:19: 00 Yes Route: IVP, PRN, 2,300 unit, 2.3 mL, Drug form: INJ, PRN Heparin Protocol, Start date: 12/04/23 20:19:00 CDT, Stop date: 01/03/24 20:18:00 CDT, 30 day, 0 Matilda Garcia heparin additive 25,000 unit [12 unit/kg/hr] + Premix Diluent Sodium Chloride 0.45% 500 mL 12-04 01:19: 00 Yes Notes: Total Concentrat ion = 50 unit/ ml Total volume = 500 ml Send Med Request 2 hours prior to next bag Matilda Garcia Dextrose 50% Syringe (D50W) 12-04 01:18: 00 No 25 mL, Route: IVP, Dosing Weight 95.1, kg, PRN, PRN Blood Glucose Results, Start date: 12/04/23 20:18:00 CDT, Duration: 30 day, Stop date: 01/03/24 20:17:00 CDT Matilda Garcia glucagon 12-04 01:18: 00 Yes 1 mg, Route: IM, Drug form: PDR/INJ, PRN, Dosing Weight 95.1, kg, PRN Blood Glucose Results, Start date: 12/04/23 20:18:00 CDT, Duration: 30 day, Stop date: 01/03/24 20:17:00 CDT, 0 Matlida Garcia ondansetron 12-04 01:18: 00 Yes Notes: (Same as: Zofran) MEDICATION WASTE Product Size: 4 mg Product Wasted: ___ mg Matilda Garcia melatonin 12-04 01:18: 00 Yes Notes: (Same as: Melatonin) Matilda Garcia acetaminoph en 12-04 01:18: 00 Yes Notes: Do not exceed 4 gm/day. (Same as: Tylenol) Matilda Garcia Tums 12-04 01:18: 00 Yes Notes: (Same As: Tums) Calcium Carbonate 500 mg = 200 mg elemental calcium Dose = mg calcium carbonate ( mg elemental calcium) Matilda Garcia losartan 100 mg oral tablet 12-04 01:18: 00 Yes 100 mg = 1 tab, PO, Daily, 0 Refill(s) Matilda Garcia levothyroxi ne 100 mcg (0.1 mg) oral tablet 12-04 01:17: 00 Yes 100 microgram = 1 tab, PO, Daily, 0 Refill(s) Matilda Garcia amLODIPine 12-04 01:16: 00 Yes 10 mg, PO, Daily, 0 Refill(s) Matilda Garcia levothyroxi ne 50 mcg (0.05 mg) oral tablet 12-03 23:42: 00 No 50 microgram = 1 tab, PO, Daily, # 30 tab, 0 Refill(s) Matilda Garcia primidone 50 mg oral tablet 12-03 23:41: 00 Yes 50 mg = 1 tab, PO, Daily, 0 Refill(s) Matilda Garcia amLODIPine (Norvasc) 10 MG tablet 12-03 00:00: 00 Yes 1{tbl} 1 tablet. [facility] primidone (Mysoline) 50 MG tablet 12-03 00:00: 00 Yes 1{tbl} 1 tablet. [facility] escitalopra m oxalate 5 mg tablet 12-03 00:00: 00 Yes 5mg Take 1 tablet in the morning. [facility] levothyroxi ne 100 mcg tablet 12-03 00:00: [address] [facility] amLODIPine 10 mg tablet 12-03 00:00: 00 10-11 00:00 :00 No 10mg Take 1 tablet by mouth in the morning. [facility] methylPREDN ISolone (MEDROL, ERLIN,) 4 mg tablets 2017-08 00:00: 00 12-31 00:00 :00 No Take by mouth SEE-INSTRU CTIONS. follow package directions [facility] Ezetimibe 10 MG Ezetimibe 10 MG No 1{table t} QD Ezetimibe 10 MG Levothyroxi ne Sodium 75 MCG Levothyroxi ne Sodium 75 MCG No QD Levothyrox ine Sodium 75 MCG Lumigan 0.01 % Lumigan 0.01 % No 1{drop_ into_af fected_ eye_in_ the_eve bruce} QD Lumigan 0.01 % Eliquis 5 MG Eliquis 5 MG No 1{table t} BID Eliquis 5 MG Metoprolol Tartrate 25 MG Metoprolol Tartrate 25 MG No .5{tabl et_with _food} BID Metoprolol Tartrate 25 MG Escitalopra m Oxalate 5 MG Escitalopra m Oxalate 5 MG No 1{table t} QD Escitalopr am Oxalate 5 MG Aspirin Adult Low Dose 81 MG Aspirin Adult Low Dose 81 MG No 1{table t} QD Aspirin Adult Low Dose 81 MG Albuterol Sulfate HFA 108 (90 Base) MCG/ACT Albuterol Sulfate HFA 108 (90 Base) MCG/ACT No 1{puff_ as_need ed} 6xD Albuterol Sulfate HFA 108 (90 Base) MCG/ACT Melatonin 3 MG Melatonin 3 MG No 1{table t_at_be dtime_a s_neede d} QD Melatonin 3 MG Immunizations Ordered Immunization Name Filled Immunization Name Date Status Comments Source Influenza, adjuvanted, trivalent, PF (FLUAD) 2024-05-09 00:00:00 Completed [facility] Influenza, adjuvanted, trivalent, PF (FLUAD) 2024-05-09 00:00:00 Completed [facility] Influenza, adjuvanted, trivalent, PF (FLUAD) Unknown Completed [facility] Influenza, adjuvanted, trivalent, PF (FLUAD) Unknown Completed [facility] Influenza, adjuvanted, trivalent, PF (FLUAD) Unknown Completed [facility] Vital Signs Vital Name Observation Time Observation Value Janeth allen height 2025-01-05 09:45:00 68 [in_i] Commo n [facility] weight 2025-01-05 09:45:00 192.6 [lb_av] Co mmon [facility] temperature 2025-01-05 09:45:00 98.0 [degF] Com mon [facility] bmi 2025-01-05 09:45:00 29.28 kg/m2 Comm on [facility] oximetry 2025-01-05 09:45:00 97 % Commo n [facility] respiratory rate 2025-01-05 09:45:00 16 /min [facility] blood pressure systolic 2025-01-05 09:45:00 136 mm[Hg] [facility] blood pressure diastolic 2025-01-05 09:45:00 72 mm[Hg] [facility] Systolic blood pressure 2024-12-26 18:18:00 157 mm[Hg] [facility] Diastolic blood pressure 2024-12-26 18:18:00 74 mm[Hg] [facility] Heart rate 2024-12-26 18:18:00 85 /min [facility] Body weight 2024-12-26 18:18:00 30.845 kg [facility] BMI 2024-12-26 18:18:00 10.34 kg/m2 [facility] Oxygen saturation in Arterial blood by Pulse oximetry 2024-12-26 18:18:00 96 /min [facility] Systolic blood pressure 2024-11-16 18:36:00 133 mm[Hg] [facility] Diastolic blood pressure 2024-11-16 18:36:00 73 mm[Hg] [facility] Heart rate 2024-11-16 18:36:00 84 /[facility] 2024-11-16 18:36:00 16 /min [facility] Body height 2024-11-16 18:36:00 172.7 cm [facility] Body weight 2024-11-16 18:36:00 85.367 [facility] BMI 2024-11-16 18:36:00 28.62 kg/m2 [facility] Oxygen saturation in Arterial blood by Pulse oximetry 2024-11-16 18:36:00 99 /min [facility] Systolic blood pressure 2024-10-31 16:18:00 149 mm[Hg] [facility] Diastolic blood pressure 2024-10-31 16:18:00 80 mm[Hg] [facility] Heart rate 2024-10-31 16:18:00 73 /min [facility] Res[facility] rate 2024-10-31 16:15:00 16 /min [facility] Body height 2024-10-31 16:15:00 172.7 cm [facility] Body weight 2024-10-31 16:15:00 87.68 kg Univ [facility] BMI 2024-10-31 16:15:00 29.39 kg/m2 [facility] Oxygen saturation in Arterial blood by Pulse oximetry 2024-10-31 16:15:00 99 /min [facility] Systolic blood pressure 2024-10-19 21:21:00 117 mm[Hg] [facility] Diastolic blood pressure 2024-10-19 21:21:00 75 mm[Hg] [facility] Heart rate 2024-10-19 21:21:00 87 /min Unive [facility] Body temperature 2024-10-19 21:21:00 37.28 Felisha [facility] Respiratory rate 2024-10-19 21:21:00 18 /min [facility] Body height 2024-10-19 21:21:00 172.7 cm [facility] Body weight 2024-10-19 21:21:00 87.091 kg [facility] BMI 2024-10-19 21:21:00 29.19 kg/m2 [facility] Oxygen saturation in Arterial blood by Pulse oximetry 2024-10-19 21:21:00 98 /min [facility] Systolic blood pressure 2024-10-12 17:31:00 157 mm[Hg] [facility] Diastolic blood pressure 2024-10-12 17:31:00 65 mm[Hg] [facility] Heart rate 2024-10-12 17:31:00 77 /min Unive [facility] Body temperature 2024-10-12 17:31:00 36.94 Felisha [facility] Respiratory rate 2024-10-12 17:31:00 18 /min [facility] Oxygen saturation in Arterial blood by Pulse oximetry 2024-10-12 17:31:00 97 /min [facility] Body weight 2024-10-12 04:30:00 87.317 kg [facility] BMI 2024-10-12 04:30:00 29.27 kg/m2 [facility] Body height 2024-10-12 02:09:00 172.7 cm [facility] Systolic blood pressure 2024-10-11 14:45:00 150 mm[Hg] [facility] Diastolic blood pressure 2024-10-11 14:45:00 89 mm[Hg] [facility] Heart rate 2024-10-11 14:45:00 66 /min [facility] Respiratory rate 2024-10-11 14:45:00 20 /min [facility] Oxygen saturation in Arterial blood by Pulse oximetry 2024-10-11 14:45:00 97 /min [facility] Body weight 2024-10-11 14:00:00 87.998 kg [facility] BMI 2024-10-11 14:00:00 29.27 kg/m2 [facility] Systolic blood pressure 2024-08-03 14:38:00 157 mm[Hg] [facility] Diastolic blood pressure 2024-08-03 14:38:00 76 mm[Hg] [facility] Heart rate 2024-08-03 14:38:00 62 /min [facility] Oxygen saturation in Arterial blood by Pulse oximetry 2024-08-03 14:38:00 98 /min [facility] Body temperature 2024-08-03 14:32:00 35.94 Felisha [facility] Respiratory rate 2024-08-03 14:32:00 20 /min [facility] Body height 2024-08-03 14:30:00 172.7 cm [facility] Body weight 2024-08-03 14:30:00 88.225 kg [facility] BMI 2024-08-03 14:30:00 29.57 kg/m2 [facility] height 2024-07-26 14:45:00 68 [in_i] Commo n [facility] weight 2024-07-26 14:45:00 193.4 [lb_av] Co mmon [facility] temperature 2024-07-26 14:45:00 96.9 [degF] Com mon [facility] bmi 2024-07-26 14:45:00 29.4 kg/m2 Commo n [facility] oximetry 2024-07-26 14:45:00 97 % Comm n [facility] respiratory rate 2024-07-26 14:45:00 16 /min [facility] blood pressure systolic 2024-07-26 14:45:00 124 mm[Hg] Common [facility] blood pressure diastolic 2024-07-26 14:45:00 72 mm[Hg] [facility] Systolic blood pressure 2024-06-13 16:15:00 145 mm[Hg] [facility] Diastolic blood pressure 2024-06-13 16:15:00 59 mm[Hg] [facility] Heart rate 2024-06-13 16:15:00 56 /min [facility] Respiratory rate 2024-06-13 16:15:00 15 /min [facility] Oxygen saturation in Arterial blood by Pulse oximetry 2024-06-13 16:15:00 100 /min [facility] Body temperature 2024-06-13 13:57:00 36.22 Felisha [facility] Body height 2024-06-13 10:12:00 172.7 cm [facility] Body weight 2024-06-13 10:12:00 91.5 kg [facility] BMI 2024-06-13 10:12:00 30.67 kg/m2 [facility] Systolic blood pressure 2024-06-13 10:12:00 149 mm[Hg] [facility] Diastolic blood pressure 2024-06-13 10:12:00 55 mm[Hg] [facility] Heart rate 2024-06-13 10:12:00 61 /min Unive [facility] Body temperature 2024-06-13 10:12:00 36 Felisha [facility] Respiratory rate 2024-06-13 10:12:00 18 /min [facility] Body height 2024-06-13 10:12:00 172.7 cm [facility] Body weight 2024-06-13 10:12:00 91.5 kg [facility] BMI 2024-06-13 10:12:00 30.67 kg/m2 [facility] Oxygen saturation in Arterial blood by Pulse oximetry 2024-06-13 10:12:00 100 /min [facility] Systolic blood pressure 2024-05-30 20:59:00 142 mm[Hg] [facility] Diastolic blood pressure 2024-05-30 20:59:00 64 mm[Hg] [facility] Heart rate 2024-05-30 20:59:00 71 /min Unive [facility] Oxygen saturation in Arterial blood by Pulse oximetry 2024-05-30 20:59:00 99 /min [facility] Body temperature 2024-05-30 20:56:00 36.5 Felisha [facility] Respiratory rate 2024-05-30 20:56:00 20 /min [facility] Body height 2024-05-30 20:56:00 172.7 cm [facility] Body weight 2024-05-30 20:56:00 91.627 kg [facility] BMI 2024-05-30 20:56:00 30.71 kg/m2 [facility] height 2024-05-24 14:20:00 68 [in_i] Commo n [facility] weight 2024-05-24 14:20:00 198.8 [lb_av] Co mmon [facility] temperature 2024-05-24 14:20:00 96.6 [degF] Com mon [facility] bmi 2024-05-24 14:20:00 30.22 kg/m2 Comm on [facility] oximetry 2024-05-24 14:20:00 97 % Commo n [facility] respiratory rate 2024-05-24 14:20:00 16 /min [facility] blood pressure systolic 2024-05-24 14:20:00 140 mm[Hg] [facility] blood pressure diastolic 2024-05-24 14:20:00 60 mm[Hg] Common [facility] height 2024-05-24 14:20:00 68 [in_i] Commo n [facility] weight 2024-05-24 14:20:00 198.8 [lb_av] Co mmon [facility] temperature 2024-05-24 14:20:00 96.6 [degF] Com mon [facility] bmi 2024-05-24 14:20:00 30.22 kg/m2 Comm on [facility] oximetry 2024-05-24 14:20:00 97 % Commo n [facility] respiratory rate 2024-05-24 14:20:00 16 /min [facility] blood pressure systolic 2024-05-24 14:20:00 140 mm[Hg] Common [facility] blood pressure diastolic 2024-05-24 14:20:00 60 mm[Hg] [facility] Systolic blood pressure 2024-05-09 21:09:00 169 mm[Hg] [facility] Diastolic blood pressure 2024-05-09 21:09:00 74 mm[Hg] [facility] Heart rate 2024-05-09 21:09:00 64 /min Unive [facility] Oxygen saturation in Arterial blood by Pulse oximetry 2024-05-09 21:09:00 98 /min [facility] Body temperature 2024-05-09 21:08:00 36.78 Felisha [facility] Respiratory rate 2024-05-09 21:08:00 20 /min [facility] Body weight 2024-05-09 21:08:00 90.719 kg [facility] BMI 2024-05-09 21:08:00 30.41 kg/m2 [facility] Systolic blood pressure 2024-05-09 18:25:00 131 mm[Hg] [facility] Diastolic blood pressure 2024-05-09 18:25:00 62 mm[Hg] [facility] Heart rate 2024-05-09 18:25:00 71 /min Unive [facility] Body temperature 2024-05-09 18:25:00 36.94 Felisha [facility] Respiratory rate 2024-05-09 18:25:00 17 /min [facility] Body height 2024-05-09 18:25:00 172.7 cm [facility] Body weight 2024-05-09 18:25:00 90.992 kg [facility] BMI 2024-05-09 18:25:00 30.50 kg/m2 [facility] Oxygen saturation in Arterial blood by Pulse oximetry 2024-05-09 18:25:00 96 /min [facility] Systolic blood pressure 2024-03-28 20:57:00 130 mm[Hg] [facility] Diastolic blood pressure 2024-03-28 20:57:00 69 mm[Hg] [facility] Heart rate 2024-03-28 20:57:00 70 /min Unive [facility] Body weight 2024-03-28 20:57:00 90.266 kg [facility] BMI 2024-03-28 20:57:00 30.26 kg/m2 [facility] Oxygen saturation in Arterial blood by Pulse oximetry 2024-03-28 20:57:00 98 /min [facility] height 2024-02-17 13:00:00 68 [in_i] Commo n [facility] weight 2024-02-17 13:00:00 191.2 [lb_av] Co mmon [facility] temperature 2024-02-17 13:00:00 95.6 [degF] Com mon [facility] bmi 2024-02-17 13:00:00 29.07 kg/m2 Comm on [facility] oximetry 2024-02-17 13:00:00 97 % Commo n [facility] respiratory rate 2024-02-17 13:00:00 18 /min [facility] blood pressure systolic 2024-02-17 13:00:00 124 mm[Hg] [facility] blood pressure diastolic 2024-02-17 13:00:00 67 mm[Hg] [facility] Systolic blood pressure 2024-02-01 14:17:00 137 mm[Hg] [facility] Diastolic blood pressure 2024-02-01 14:17:00 48 mm[Hg] [facility] Heart rate 2024-02-01 14:17:00 66 /min [facility] Res[facility] rate 2024-02-01 14:17:00 19 /min [facility] Body height 2024-02-01 14:17:00 172.7 cm [facility] Body weight 2024-02-01 14:17:00 91.853 kg [facility] BMI 2024-02-01 14:17:00 30.79 kg/m2 [facility] Oxygen saturation in Arterial blood by Pulse oximetry 2024-02-01 14:17:00 99 /min [facility] Systolic blood pressure 2024-01-01 15:35:00 135 mm[Hg] [facility] Diastolic blood pressure 2024-01-01 15:35:00 61 mm[Hg] [facility] Heart rate 2024-01-01 15:35:00 66 /min Unive [facility] Respiratory rate 2024-01-01 15:35:00 19 /min [facility] Body height 2024-01-01 15:35:00 172.7 cm [facility] Body weight 2024-01-01 15:35:00 94.257 kg [facility] BMI 2024-01-01 15:35:00 31.60 kg/m2 [facility] Oxygen saturation in Arterial blood by Pulse oximetry 2024-01-01 15:35:00 98 /min [facility] Systolic blood pressure 2023-12-28 14:35:00 147 mm[Hg] [facility] Diastolic blood pressure 2023-12-28 14:35:00 71 mm[Hg] [facility] Heart rate 2023-12-28 14:35:00 78 /min [facility] Body temperature 2023-12-28 14:35:00 36.22 Felisha [facility] Body height 2023-12-28 14:35:00 172.7 cm [facility] 2023-12-28 14:35:00 92.08 kg [facility] BMI 2023-12-28 14:35:00 30.87 kg/m2 [facility] Systolic blood pressure 2024-08-03 14:38:00 157 mm[Hg] [facility] Diastolic blood pressure 2024-08-03 14:38:00 76 mm[Hg] [facility] Heart rate 2024-08-03 14:38:00 62 /min [facility] Oxygen saturation in Arterial blood by Pulse oximetry 2024-08-03 14:38:00 98 /min [facility] Body temperature 2024-08-03 14:32:00 35.94 Felisha [facility] Respiratory rate 2024-08-03 14:32:00 20 /min [facility] Body height 2024-08-03 14:30:00 172.7 cm [facility] Body weight 2024-08-03 14:30:00 88.225 kg [facility] BMI 2024-08-03 14:30:00 29.57 kg/m2 [facility] Temperature Oral (F) 2023-12-07 12:37:00 97.7 F [facility] Rate 2023-12-07 12:37:00 [facility] Systolic (mm Hg) 2023-12-07 12:37:00 [facility] Diastolic (mm Hg) 2023-12-07 12:37:00 [facility] Heart Rate 2023-12-07 08:31:01 [facility] Systolic (mm Hg) 2023-12-07 08:30:46 [facility] Diastolic (mm Hg) 2023-12-07 08:30:46 [facility] Rate 2023-12-07 08:30:46 [facility] Temperature Oral (F) 2023-12-07 08:30:37 97.9 F [facility] Systolic (mm Hg) 2023-12-07 04:21:26 [facility] Diastolic (mm Hg) 2023-12-07 04:21:26 [facility] Temperature Oral (F) 2023-12-07 04:21:03 98.1 F [facility] Respitory Rate 2023-12-07 00:38:00 [facility]itory Rate 2023-12-06 21:07:01 [facility] Respitory Rate 2023-12-06 16:29:04 [facility] Height 2023-12-05 00:39:00 172.72 cm [facility] Weight 2023-12-05 00:39:00 [facility] BMI Calculated 2023-12-05 00:39:00 [facility] Height 2023-12-04 23:43:00 172.72 cm [facility] Weight 2023-12-04 23:43:00 [facility] BMI Calculated 2023-12-04 23:43:00 [facility] Procedures Procedure Date / Time Performed Performing Clinician Source SLEEP LAB RESULTS 2024-11-09 21:16:[address] [facility] TRANSTHORACIC ECHO (TTE) COMPLETE W/ CONTRAST 2024-10-12 19:06:16 Stanton Lawrence [facility] TRANSTHORACIC ECHO (TTE) COMPLETE W/ CONTRAST 2024-10-12 19:06:16 Stanton Lawrence [facility] HB ECG ROUTINE & RHYTHM STRIP 2024-10-12 13:46:31 Stanton Lawrence [facility] MAGNESIUM 2024-10-12 10:36:00 Stanton Lawrence [facility] BASIC METABOLIC PANEL (NA, K, CL, CO2, GLUCOSE, BUN, CREATININE, CA) 2024-10-12 10:36:00 Stanton Lawrence [facility] CBC WITH DIFF 2024-10-12 10:36:00 Stanton Lawrence [facility] MAGNESIUM 2024-10-12 10:36:00 Stanton Lawrence [facility] BASIC METABOLIC PANEL (NA, K, CL, CO2, GLUCOSE, BUN, CREATININE, CA) 2024-10-12 10:36:00 Stanton Lawrence [facility] CBC WITH DIFF 2024-10-12 10:36:00 Stanton Lawrence [facility] CATH PROCEDURE LOG 2024-10-11 21:27:44 Sean Mcdonald [facility] CATH PROCEDURE LOG 2024-10-11 21:27:44 Sean Mcdonald [facility] CARDIAC CATHETERIZATION 2024-10-11 21:18:54 Yasir Jackson [facility] CARDIAC CATHETERIZATION 2024-10-11 21:18:54 Yasir Jackson [facility] ELECTROPHYSIOLOGY PROCEDURE 2024-10-11 21:18:54 Sean Gomez i [facility] POCT ACT HIGH RANGE 2024-10-11 20:49:00 Mara Jackson [facility] POCT ACT HIGH RANGE 2024-10-11 20:49:00 Mara Jackson [facility] POCT ACT HIGH RANGE 2024-10-11 20:27:00 Mara Jackson [facility] POCT ACT HIGH RANGE 2024-10-11 20:27:00 Mara Jackson [facility] POCT ACT HIGH RANGE 2024-10-11 20:04:00 Mara Jackson [facility] POCT ACT HIGH RANGE 2024-10-11 20:04:00 Mara Jackson [facility] POCT ACT HIGH RANGE 2024-10-11 19:36:00 Mara Jackson [facility] POCT ACT HIGH RANGE 2024-10-11 19:36:00 Mara Jackson [facility] BASIC METABOLIC PANEL (NA, K, CL, CO2, GLUCOSE, BUN, CREATININE, CA) 2024-10-11 14:51:00 Sean Mcdonald Gina [facility] HB ABO GROUPING 2024-10-11 14:51:00 Gina Jackson [facility] BASIC METABOLIC PANEL (NA, K, CL, CO2, GLUCOSE, BUN, CREATININE, CA) 2024-10-11 14:51:00 Sean Mcdonald [facility] HB ABO GROUPING 2024-10-11 14:51:00 Gina Jackson [facility] HB ECG ROUTINE & RHYTHM STRIP 2024-08-03 14:36:32 Sean Mcdonald [facility] FL TIME OR (NON-REPORTABLE) 2024-06-13 14:04:29 Lois quintero [facility] [place] TIME OR (NON-REPORTABLE) 2024-06-13 14:04:29 Lois quintero [facility] ARTERIOGRAM 2024-06-13 11:53:[address] [facility] ABORH CONFIRMATION (LAB ONLY) 2024-06-13 11:48:00 Jose Antonio Bennett [facility] ABORH CONFIRMATION (LAB ONLY) 2024-06-13 11:48:00 Jose Antonio Bennett [facility] CBC WITH DIFF 2024-06-13 10:36:00 Maximo Sosa [facility] HB ABO GROUPING 2024-06-13 10:36:00 Maximo Sosa [facility] CBC WITH DIFF 2024-06-13 10:36:00 [facility] 2024-06-13 10:36:00 Maximo Sosa [facility] CT ANGIOGRAM NECK 2024-05-19 19:34:06 JiElizabeth [facility] FLU VACC(),65+YR,0.5 ML,IM,ADJUVANTED,TIV(FLUAD) 2024-05-09 [facility]:28[facility] CAROTID DUPLEX BILATERAL - BY VASCULAR LAB 2024-05-06 20:11:11 Karly Zafar [facility] REFERRAL- REQUEST/RESPONSE 2024-01-01 21:51:44 D octor Unassigned, Torrey [facility] REFERRAL- REQUEST/RESPONSE 2023-12-30 14:09:28 D octor Unassigned, Torrey [facility] Encounters Start Date/Time End Date/Time Encounter Type Admission Type Attending [facility] Care Facility Care Department Encounter ID Source 2024-10-17 13:05:00 Outpatient Betty Victoria [facility] [id number] [facility] 2024-10-13 13:14:00 Outpatient [facility] Victoria [facility] [id number] [facility] 2024-09-13 15:06:01 [facility] [id number] [facility] 2024-02-17 13:04:00 [facility] [id number] [facility] 2024-02-15 11:15:00 [facility] [id number] [facility] 2024-01-13 10:17:00 Outpatient Victoria Hernández [facility] [id number] [facility] 2024-01-05 10:52:01 Outpatient Victoria Hernández STLMLC ST[facility]C [id number] [facility] 2025-01-05 00:00:00 2025-01-05 00:00:00 OFFICE VISIT ESTAB PT LEVEL 4 STLMLC STLMLC [id number] [facility] 2024-12-27 00:00:00 2024-12-27 00:00:00 (TEL) STLMLC STLMLC [id number] [facility] 2024-12-26 13:15:00 2024-12-26 13:57:00 Outpatient R JOSE ANTONIO BENNETT MITCHELL [facility] [id number] [facility] 2024-12-26 13:15:00 2024-12-26 13:57:00 Office Visit Jose Antonio Bennett [facility] [id number] [facility] 2024-11-25 00:00:00 2024-11-25 00:00:00 (TEL) STLC STLC [id number] [facility] 2024-11-16 13:30:00 2024-11-16 14:00:53 Outpatient R FERNANDO GILL [facility] [id number] [facility] 2024-11-16 13:30:00 2024-11-16 14:00:53 Office Visit Fernando Gill [facility] [id number] [facility] 2024-11-09 00:00:00 2024-11-10 02:04:11 Orders Only Chelsea Salamanca [facility] [id number] [facility] 2024-11-08 00:00:00 2024-11-09 11:10:34 [facility] [id number] [facility] 2024-11-07 14:00:00 2024-11-07 14:00:00 [facility] [id number] [facility] 2024-11-03 10:30:00 2024-11-03 10:30:00 Outpatient R FERNANDO GILL [facility] [id number] [facility] [facility] 2024-10-31 11:00:00 2024-10-31 11:32:07 [facility] [id number] [facility] 2024-10-31 11:00:00 2024-10-31 11:32:07 [facility] 1.2.840.114 350.1.13.10 4.2.7.2.[id number] [facility] 2024-10-20 00:00:00 2024-10-20 00:00:00 (TEL) [facility] [id number] [facility] 2024-10-19 15:30:00 2024-10-19 16:49:07 Outpatient R GINA JACKSON GINA [facility] [id number] [facility] 2024-10-19 15:30:00 2024-10-19 16:00:00 Office Visit Gina Jackson [facility] 1.2.840.114 350.1.13.10 4.2.7.2.[id number] [facility] 2024-10-18 00:00:00 2024-10-18 00:00:00 OFFICE VISIT ESTAB PT LEVEL 4 STLMLC STLC [id number] [facility] 2024-10-18 00:00:00 2024-10-18 00:00:00 (TEL) STLMLC STLMLC [id number] [facility] 2024-10-11 07:28:00 2024-10-12 16:39:00 Outpatient R ERICK APONTE [facility] [id number] [facility] 2024-10-11 07:28:00 2024-10-12 16:39:00 Hospital Encounter Gina Jackson Rizwan [facility] ([place] 1..840.114 350.1.13.10 4.2.7.2.[id number] [facility] 2024-10-12 00:00:00 2024-10-12 00:00:00 (TEL) STLC STLC [id number] [facility] 2024-10-11 10:05:00 2024-10-11 12:05:00 Surgery Gina Jackson [facility] ([place] 1..840.114 350.1.13.10 4.2.7.2.[id number] [facility] 2024-10-07 09:30:00 2024-10-07 09:45:00 Psychiatric Tech Visit Pob, Adc Lab Main Gina Jackson Pob, Adc Lab Main [facility] 1..840.114 350.1.13.10 4.2.7.2.[id number] [facility] 2024-10-07 09:30:00 2024-10-07 09:30:00 Outpatient R GINA JACKSON HAIDER [facility] [id number] [facility] 2024-10-05 08:00:00 2024-10-05 08:00:00 Outpatient R GINA JACKSON HAIDER [facility] [id number] [facility] 2023-12-30 00:00:00 2024-10-01 07:46:43 Orders Only Doctor Unassigned, Torrey Doctor Unassigned, Torrey [facility] ([place] 1.2.840.114 350.1.13.10 4.2.7.2.[id number] [facility] 2024-01-01 00:00:00 2024-10-01 07:45:23 Orders Only Doctor Unassigned, Torrey Doctor Unassigned, Torrey [facility] ([place] 1.2.840.114 350.1.13.10 4.2.7.2.[id number] [facility] 2024-09-13 00:00:00 2024-09-13 00:00:00 (TEL) STLMLC STLMLC [id number] [facility] 2024-08-23 00:00:00 2024-08-23 12:58:43 Telephone Gina Jackson 1.2.840.1 03357.1.1 3.104.2.7 .[id number] [facility] 2024-08-03 09:00:00 2024-08-03 11:19:50 Outpatient R GINA JACKSON HAIDER [facility] [id number] [facility] 2024-08-03 09:00:00 2024-08-03 11:19:50 Office Visit Gina Jackson 1.2.840.1 [id number] 3.104.2.7 .3.131434 [id number] [facility] 2024-08-03 00:00:00 2024-08-03 00:00:00 Travel 1.2.840.1 80158.1.1 3.104.2.7 .3.789078 .8 1.2.840.114 350.1.13.10 [address].2[address]7.3[id number] [facility] 2024-07-26 00:00:00 2024-07-26 00:00:00 OFFICE VISIT ESTAB PT LEVEL 4 STLMLC STLMLC [id number] [facility] 2024-07-06 00:00:00 2024-07-06 00:00:00 (TEL) STLMLC STLMLC [id number] [facility] 2024-06-28 00:00:00 2024-06-28 00:00:00 (TEL) STLMLC STLMLC [id number] [facility] 2024-06-27 15:00:00 2024-06-27 15:00:00 Outpatient JOSE ANTONIO FRANKLIN MITCHELL [facility] [id number] [facility] 2024-06-21 00:00:00 2024-06-21 00:00:00 (TEL) STLC STLC [id number] [facility] 2024-06-13 05:02:00 2024-06-13 11:30:00 Outpatient JOSE ANTONIO FRANKLIN MITCHELL [facility] [id number] [facility] 2024-06-13 05:02:00 2024-06-13 11:30:00 Hospital Encounter Jose Antonio Bennett [facility] ([place] 1.2.840.114 350.1.13.10 4.2.7.2.[id number] [facility] 2024-06-13 06:55:00 2024-06-13 08:56:00 Surgery Jose [facility] ([place] 1.2.840.114 350.1.13.10 4.2.7.2.[id number] [facility] 2024-05-30 15:45:00 2024-05-30 16:56:29 Outpatient R JOSE ANTONIO BENNETT MITCHELL [facility] [id number] [facility] 2024-05-30 15:45:00 2024-05-30 16:56:29 Office Visit Hilda Jose Antonio [facility] 1.2.840.114 350.1.13.10 4.2.7.2.[id number] [facility] 2024-05-25 00:00:00 2024-05-25 00:00:00 (TEL) STLC STLMLC [id number] [facility] 2024-05-25 00:00:00 2024-05-25 00:00:00 (TEL) STLMLC STLMLC [id number] [facility] 2024-05-24 00:00:00 2024-05-24 00:00:00 SUB ANNUAL [facility] VISIT STLC STLC [id number] [facility] 2024-05-24 00:00:00 2024-05-24 00:00:00 OFFICE VISIT ESTAB PT LEVEL 4 STLMLC STLC [id number] [facility] 2024-05-19 11:48:46 2024-05-19 23:59:00 Outpatient R JOSE ANTONIO BENNETT MITCHELL [facility] [id number] [facility] 2024-05-19 11:48:46 2024-05-19 23:59:00 Hospital Encounter Jose Antonio Bennett [facility] 1.2.840.114 350.1.13.10 4.2.7.2.[id number] [facility] 2024-05-13 00:00:00 2024-05-13 00:00:00 (TEL) STLC STLC [id number] [facility] 2024-05-11 00:00:00 2024-05-11 11:24:01 Telephone Chelsea Salamacna [facility] 1.2.840.114 350.1.13.10 4.2.7.2.[id number] [facility] 2024-05-09 15:30:00 2024-05-09 16:29:54 Outpatient JOSE ANTONIO FRANKLIN MITCHELL [facility] [id number] [facility] 2024-05-09 15:30:00 2024-05-09 16:29:54 Office Visit [facility] 1.2.840.114 350.1.13.10 4.2.7.2.[id number] [facility] 2024-05-09 13:40:00 2024-05-09 13:48:35 [facility] 1.2.840.114 350.1.13.10 4.2.7.2.[id number] [facility] 2024-05-09 00:00:00 2024-05-09 00:00:00 (TEL) STLMLC STLMLC [id number] [facility] 2024-05-06 14:47:38 2024-05-06 23:59:00 Outpatient JOSE ANTONIO FRANKLIN MITCHELL [facility] [id number] [facility] 2024-05-06 14:47:38 2024-05-06 23:59:00 Hospital Encounter Jose Antonio [facility] 1.2.840.114 350.1.13.10 4.2.7.2.[id number] [facility] 2024-05-03 09:00:00 2024-05-03 09:00:00 Outpatient CHELSEA PALACIO [facility] [id number] [facility] 2024-05-02 15:00:00 2024-05-02 15:00:00 Outpatient JOSE ANTONIO FRANKLIN MITCHELL [facility] [id number] [facility] 2024-04-27 00:00:00 2024-04-27 00:00:00 (TEL) STLMLC STLMLC [id number] [facility] 2024-04-12 16:00:00 2024-04-12 16:00:00 Outpatient JOSE ANTONIO FRANKLIN MITCHELL [facility] [id number] [facility] 2024-04-08 00:00:00 2024-04-08 00:00:00 (TEL) STLMLC STLMLC [id number] [facility] 2024-03-28 16:00:00 2024-03-28 16:39:04 Outpatient JOSE ANTONIO FRANKLIN MITCHELL [facility] [id number] [facility] 2024-03-28 16:00:00 2024-03-28 16:39:04 Office Visit Jose Antonio Bennett [facility] 1.2.840.114 350.1.13.10 4.2.7.2.[id number] [facility] 2024-03-18 00:00:00 2024-03-18 00:00:00 (TEL) STLMLC STLMLC [id number] [facility] 2024-03-17 00:00:00 2024-03-17 00:00:00 (TEL) STLMLC STLMLC [id number] [facility] 2024-02-24 00:00:00 2024-02-24 00:00:00 (TEL) STLMLC STLMLC [id number] [facility] 2024-02-22 16:00:00 2024-02-22 16:00:00 Outpatient JOSE ANTONIO FRANKLIN MITCHELL [facility] [id number] [facility] 2024-02-17 00:00:00 2024-02-19 11:26:54 Telephone Chelsea Salamanca [facility] .2.840.114 350.1.13.10 4.2.7.2.[id number] [facility] 2024-02-17 00:00:00 2024-02-17 00:00:00 OFFICE VISIT ESTAB PT LEVEL 4 [facility]MLC [facility] [id number] [facility] 2024-02-10 13:30:00 2024-02-10 13:30:00 Outpatient R GINA JACKSON GINA [facility] [id number] [facility] 2024-02-10 13:30:00 2024-02-10 13:30:00 Outpatient R GINA JACKSON [facility] [id number] [facility] 2024-02-01 09:40:00 2024-02-01 09:40:00 [facility] 1.0.114 350.1.13.10 4.2.7.2.[id number] [facility] 2024-02-01 09:40:00 2024-02-01 09:37:05 [facility] [id number] [facility] 2024-01-25 00:00:00 2024-01-25 09:48:13 Nurse Triage Annamarie Yancey [facility] 1.0.114 350.1.13.10 4.2.7.2.[id number] [facility] 2024-01-10 00:00:00 2024-01-10 10:03:35 Nurse Triage Jaron Sharita T [facility] 1.0.114 350.1.13.10 4.2.7.2.[id number] [facility] 2024-01-01 00:00:00 2024-01-01 13:29:09 [facility] 1.[facility].114 350.1.13.10 4.2.7.2.[id number] [facility] 2024-01-01 10:20:00 2024-01-01 11:20:37 [facility] CAB[facility] 1.2.840.114 350.1.13.10 4.2.7.2.[id number] [facility] 2024-01-01 10:20:00 2024-01-01 11:20:37 Outpatient R CHELSEA SALAMANCA [facility] [id number] [facility] 2023-12-28 09:00:00 2023-12-28 10:19:29 Office Visit Girish Davies [facility] 1 1.2.840.114 350.1.13.58 9.2.7.2.686 [id number] [facility] 2023-12-04 18:26:00 2023-12-12 16:11:00 Inpatient E ROSS [facility] [id number] [facility] 2023-12-07 13:30:00 2023-12-07 13:30:00 Outpatient GIRISH DAVIES [facility] [id number] [facility] Results Test Description Test Time Test Comments Results Result Co mments Source [facility]2024-10-12 21:56:46* Test Item Value Reference Range Interpretation Comme nts Height (test code = 8234485046) 68 in Weight (test code = 4231290304) 192 lbs Systolic BP (test code = 9942152944) 157 mmHg Diastolic BP (test code = 3660725953) 65 mmHg Heart Rate (test code = 7018161647) 77 bpm BSA (test code = 9749779781) 2.01 m2 LVOT diameter (test code = 8057533374) 2.01 cm LVOT area (test code = 1145931406) 3.20 cm2 LA size (test code = 1371367798) 4.1 cm Ao root diam (test code = 3274710000) 3.20 cm Aortic root (test code = 7247436824) 3.2 cm Ao root annulus (test code = 2959932493) 3.2 cm TR Peak Jesse (test code = 1286093302) 302.2 cm/s Triscuspid Valve Regurgitation Peak Gradient (test code = 1768984946) 36.5 mmHg LAV(MOD-sp4) (test code = 4696373190) 32.60 mL MV Peak A Jesse (test code = 8218085884) 41.6 cm/s MV Peak E Jesse (test code = 1677480717) 121.2 cm/s E/A ratio (test code = 9833470053) 2.90 ratio E wave decelartion time (test code = 9149417470) 0.19 s MV Prop V (test code = 4728160174) 80.70 cm/s MV E/e' septal (test code = 6119257297) 10.2 cm/s TASV (test code = 3077222221) 9.8 cm/s Tapse (test code = 7829158749) 1.61 cm LA Volume Index (BP) (test code = 6518501551) 16.8 mL/m2 LA volume (BP) (test code = 3338835182) 33.8 mL LAV(MOD-sp2) (test code = 0120962913) 33.80 mL LVOT stroke volume (test code = 0653860742) 80.10 cm3 LVOT peak jesse (test code = 8812384759) 118.7 cm/s LVOT mn grad (test code = 0624949563) 2.7 mmHg AV LVOT peak gradient (test code = 6805676658) 5.6 mmHg LVOT peak VTI (test code = 9393744284) 25.2 cm LV V1 mean (test code = 0043365408) 77.00 cm/s Aortic valve mean velocity (test code = 2476696392) 124.7 cm/s Ao peak jesse (test code = 7101039937) 209.0 cm/s Ao VTI (test code = 9647862879) 40.0 cm AV area by cont VTI (test code = 8064061701) 2.0 cm2 AV area peak jesse (test code = 9362947127) 1.8 cm2 Ao max PG (test code = 5771017785) 17.50 mm[Hg] AV peak gradient (test code = 0923472001) 17.5 mmHg AV valve area (test code = 6768242511) 2.00 cm2 AV mean gradient (test code = 8224169862) 7.3 mmHg LVIDD (test code = 2138582430) 4.90 cm Left Ventricular End Diastolic Volume by Teichholz Method (test code = 2454448) 114.0 mL IVS (test code = 4325336890) 0.64 cm Interventricular Septum Diastolic Thickness by 2D (test code = 5911098) 0.64 cm LVPWD (test code = 9679703809) 0.67 cm PW (test code = 6718308581) 0.67 cm 0.6-1.1 EF(Teich) (test code = 1168665105) 55.60 % LVIDS (test code = 3214347697) 3.50 cm Left Ventricular End Systolic Volume by Teichholz Method (test code = 8655200) 50.7 mL FS (test code = 5801941556) 29 % EF - 2D (test code = 19321345) 55.60 % MV mean gradient (test code = 5839843885) 3.0 mmHg MV peak gradient (test code = 1917840281) 7.6 mmHg MV pk jesse (test code = 1316683206) 138.0 cm/s MV valve area by continuity eq (test code = 5860731541) 1.82 cm2 MV VTI (test code = 3251357170) 43.3 cm MV V2 mean (test code = 3874442463) 81.40 cm/s MV stenosis pressure 1/2 time (test code = 4330436769) 138.4 ms Radiology Study observation (narrative) (test code = 53753-4) GISELL (test code = GISELL) ?Left?Ventricle: Left ventricle size is normal. Mild basal septal thickening. Septal motion is consistent with post-operative status. . No regional wall motion abnormalities. Normal systolic function with a visually estimated EF of 60 - 65%. Normal diastolic function. Normal left ventricular filling pressure. ?Right?Ventricle: Right ventricle size is normal. Normal systolic function. ?Tricuspid?Valve: Tricuspid valve structure is normal. Trace transvalvular regurgitation. Right ventricular systolic pressure is 40-45 mmHg. ?RA pressure is 0-5 mmHg. ?IVC/SVC: IVC diameter is less than or equal to 21 mm and decreases greater than 50% during inspiration; therefore the estimated right atrial pressure is normal (~0-5 mmHg). Left VentricleLeft ventricle size is normal. Mild basal septal thickening. Septal motion is consistent with post-operative status. . No regional wall motion abnormalities. Normal systolic function with a visually estimated EF of 60 - 65%. Normal diastolic function. Normal left ventricular filling pressure.Right VentricleRight ventricle size is normal. Normal systolic function.Left AtriumLeft atrium size is normal.Right AtriumRight atrium size is normal.IVC/SVCIVC diameter is less than or equal to 21 mm and decreases greater than 50% during inspiration; therefore the estimated right atrial pressure is normal (~0-5 mmHg).Mitral ValveMitral valve structure is normal. Mild transvalvular regurgitation. No hemodynamic significant stenosis.Tricuspid ValveTricuspid valve structure is normal. Trace transvalvular regurgitation. Right ventricular systolic pressure is 40-45 mmHg. RA pressure is 0-5 mmHg.Aortic ValveMildly thickened cusps. Mildly calcified cusps. No transvalvular regurgitation. No hemodynamically significant .Pulmonic ValveNot well visualized.Ascending AortaNormal sized aortic root.PericardiumThe pericardium is normal. No pericardial effusion.Study DetailsStudy quality was adequate. A complete echocardiogram was performed using 2D, color flow Doppler and spectral Doppler. The apical, parasternal, subcostal and suprasternal views were obtained. 5 mL of Lumason ultrasound enhancing agent used. Patient exhibited sinus rhythm. [facility] ACT High [id number] 20:52:27* Test Item Value Reference Range Interpretation Comme nts ACTHR (test code = 2317834995) 354 96-152 H Lab Interpretation (test cod e = 09873-1) Abnormal [facility] ACT High [id number] 20:52:27* Test Item Value Reference Range Interpretation Comme nts ACTHR (test code = 4739577165) 354 96-152 H Lab Interpretation (test cod e = 24516-0) Abnormal [facility] ACT High [id number] 20:31:01* Test Item Value Reference Range Interpretation Comme nts ACTHR (test code = 7274952566) 286 96-152 H Lab Interpretation (test cod e = 97440-5) Abnormal [facility] High [id number] 20:31:01* Test Item Value Reference Range Interpretation Comme nts ACTHR (test code = 1195772134) 286 96-152 H Lab Interpretation (test cod e = 14609-0) Abnormal [facility] High [id number] 20:07:27* Test Item Value Reference Range Interpretation Comme nts ACTHR (test code = 5873029642) 302 96-152 H Lab Interpretation (test cod e = 66212-7) Abnormal [facility] High [id number] 20:07:27* Test Item Value Reference Range Interpretation Comme nts ACTHR (test code = 9963034121) 302 96-152 H Lab Interpretation (test cod e = 31929-5) Abnormal [facility] High [id number] 19:39:58* Test Item Value Reference Range Interpretation Comme nts ACTHR (test code = 4398462874) 358 96-152 H Lab Interpretation (test cod e = 58879-9) Abnormal [facility] High [id number] 19:39:58* Test Item Value Reference Range Interpretation Comme nts ACTHR (test code = 1935165117) 358 96-152 H Lab Interpretation (test cod e = 69129-6) Abnormal [facility] Metabolic Panel (NA, K, CL, CO2, GLUCOSE, BUN, CREATININE, CA)2024-10-11 15:25:29* Test Item Value Reference Range Interpretation Comme nts NA (test code = 8393380350) 139 mmol/L 135-145 K (test code = 1627048664) 4.3 mmol/L 3.5-5.0 CL (test code = 3409461049) 106 mmol/L 98-108 CO2 TOTAL (test code = 0208672902) 32 mmol/L 23-31 H AGAP (test code = 7751793157) 1 2-16 L BUN (test code = 4440393560) 11 mg/dL 7-23 GLUCOSE (test code = 7254252172) 118 mg/dL 70-110 H CREATININE (test code = 2160-0) 0.74 mg/dL 0.50-1.04 CALCIUM (test code = 4832350737) 9.6 mg/dL 8.6-10.6 eGFR (test code = 87644-6) 86.6 mL/min/1.73m2 CKD-EPI eGFR (2020). Assuming creatinine has been stable day-to-day for at least three months, the eGFR indicates Category G2 (60 - 89 mL/min/1.73 m2) Lab Interpretation (test code = 06070-7) Abnormal [facility] Metabolic Panel (NA, K, CL, CO2, GLUCOSE, BUN, CREATININE, CA)2024-10-11 15:25:29* Test Item Value Reference Range Interpretation Comme nts NA (test code = 3704913541) 139 mmol/L 135-145 K (test code = 2859410516) 4.3 mmol/L 3.5-5.0 CL (test code = 4297883653) 106 mmol/L 98-108 CO2 TOTAL (test code = 2625682061) 32 mmol/L 23-31 H AGAP (test code = 1465990423) 1 2-16 L BUN (test code = 6906624311) 11 mg/dL 7-23 GLUCOSE (test code = 8201630210) 118 mg/dL 70-110 H CREATININE (test code = 2160-0) 0.74 mg/dL 0.50-1.04 CALCIUM (test code = 3944692646) 9.6 mg/dL 8.6-10.6 eGFR (test code = 44448-2) 86.6 mL/min/1.73m2 CKD-EPI eGFR (2020). Assuming creatinine has been stable day-to-day for at least three months, the eGFR indicates Category G2 (60 - 89 mL/min/1.73 m2) Lab Interpretation (test code = 46173-5) [facility]normal [facility] [id number] 15:11:00* Test Item Value Reference Range Interpretation Comme nts ABO & RH (test code = 20) O POSITIVE IAT (test code = 1185) Negative [facility] [id number] 15:11:00* Test Item Value Reference Range Interpretation Comme nts ABO & RH (test code = 20) O POSITIVE IAT (test code = 1185) Negative [facility] TIME OR (NON-REPORTABLE)2024-06-13 14:05:08 These images do not require a Radiology diagnostic report.[facility] TIME OR (NON-REPORTABLE)2024-06-13 14:05:08These images do not require a Radiology diagnostic report.[facility] - This is a pre-surgical type and screen. ONCE [id number] 10:50:00* Test Item Value Reference Range Interpretation Comme nts ABO & RH (test code = 20) O POSITIVE IAT (test code = 1185) Negative [facility] This is a pre-surgical type and screen. ONCE [id number] 10:50:00* Test Item Value Reference Range Interpretation Comme nts ABO & RH (test code = 20) O POSITIVE IAT (test code = 1185) Negative [facility] MET[facility]OLIC [id number] 00:00:00* Test Item Value Reference Range Interpretation Comme nts BUN (test code = 3091-6) 10 MG/DL See_Comment [Automated messa ge] The system which generated this result transmitted reference range: 8-23 MG/DL. The reference range was not used to interpret this result as normal/abnormal. CALCIUM (test code = 12401-4) 8.7 MG/DL See_Comment [Automated messa ge] The system which generated this result transmitted reference range: 8.5-10.5 MG/DL. The reference range was not used to interpret this result as normal/abnormal. CARBON DIOXIDE (test code = 1963-8) 23 MEQ/L See_Comment [Automated messa ge] The system which generated this result transmitted reference range: 19-31 MEQ/L. The reference range was not used to interpret this result as normal/abnormal. CHLORIDE (test code = 2075-0) 104 MEQ/L See_Comment [Automated messa ge] The system which generated this result transmitted reference range: 95-107 MEQ/L. The reference range was not used to interpret this result as normal/abnormal. CREATININE (test code = 2160-0) 1.06 MG/DL See_Comment [Automated messa ge] The system which generated this result transmitted reference range: 0.60-1.30 MG/DL. The reference range was not used to interpret this result as normal/abnormal. eGFR (2020 CKD-EPI) (test code = 69393-6) 56 ML/MIN/1.73 See_Comment L [Automated [employer]] The system which generated this result transmitted reference range: >60 ML/MIN/1.73. The reference range was not used to interpret this result as normal/abnormal. GLUCOSE (test code = 2345-7) 133 MG/DL See_Comment H [Automated [employer]] The system which generated this result transmitted reference range: 70-99 MG/DL. The reference range was not used to interpret this result as normal/abnormal. POTASSIUM (test code = 2823-3) 4.3 MEQ/L See_Comment [Automated [employer]] The system which generated this result transmitted reference range: 3.5-5.4 MEQ/L. The reference range was not used to interpret this result as normal/abnormal. SODIUM (test code = 2951-2) 138 MEQ/L See_Comment [Automated [employer]] The system which generated this result transmitted reference range: 133-146 MEQ/L. The reference range was not used to interpret this result as normal/abnormal. CT ANGIOGRAM [id number] 19:53:35CT ANGIOGRAM NECK HISTORY: ?Carotid artery stenosis PLEASE INCLUDE HEAD COMPARISON: ?None TECHNIQUE: Helical acquisition CTA of the neck was done in multipledimensions. ? FINDINGS: Aortic arch and arch vessel origins: Classic 3 vessel aortic arch seen withmild calcifications seen at major arch ostia that results in no more thanmild luminal narrowing. There is mixed atherosclerotic changes seeninvolving the descending aorta without significant stenosis. Innominate and subclavian arteries: Calcified atherosclerotic changes seeninvolving a short segment of the proximal left subclavian artery thatresults in moderate luminal narrowing. The remainder of the visualized leftsubclavian artery, and right subclavian artery appears patent withoutsignificant stenosis. Calcified atherosclerotic changesseen involving thedistal innominate artery that results in mild to moderate luminal narrowing Common carotids: Moderate size segments of moderate luminal narrowing bynoncalcified atherosclerotic changes seen involving the mid right commoncarotid artery and the distal left common carotid artery. Theremainder ofthese vessels are patent without other areas of significant stenosis. The percentage ofstenosis in the right carotid bulb/ICA origin isapproximately 50% utilizing the residual lumen diameter in comparison tothe internal carotid artery diameter distal to the stenosis. ?(NASCETclassification). The remainder of the right cervical ICA appearsunremarkable. Extensive calcified atherosclerot ic changes seen involving the left carotidbulb with nonvisualization of the entire right cervical ICA. 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 Patent rightvertebral artery arising from the corresponding subclavian artery withscatteredatherosclerotic changes that results in no more than mild luminalnarrowing. Cervical soft tissues: Sternotomy wires seen. Lung apices: Moderate degenerative changes seen. Cervical spine: Moderate degenerative changes seen. Sternotomy wires seen.[facility] COMPREHENSIVE METABOLIC [id number] 00:00:00* Test Item Value Reference Range Interpretation Comme nts HEMATOCRIT (test code = 58733-0) 36.6 % See_Comment [Automated messa ge] The system which generated this result transmitted reference range: 34.0-45.0 %. The reference range was not used to interpret this result as normal/abnormal. HEMOGLOBIN (test code = 718-7) 11.0 G/DL See_Comment L [Automated messa ge] The system which generated this result transmitted reference range: 11.5-15.5 G/DL. The reference range was not used to interpret this result as normal/abnormal. MCH (test code = 65720-8) 24.6 PG See_Comment L [Automated messa ge] The system which generated this result transmitted reference range: 25.0-33.0 PG. The reference range was not used to interpret this result as normal/abnormal. MCHC (test code = 30223-6) 30.1 G/DL See_Comment L [Automated messa ge] The system which generated this result transmitted reference range: 31.0-36.0 G/DL. The reference range was not used to interpret this result as normal/abnormal. MCV (test code = 73705-2) 81.7 fL See_Comment [Automated messa ge] The system which generated this result transmitted reference range: 80.0-99.0 fL. The reference range was not used to interpret this result as normal/abnormal. PLATELET COUNT (test code = 10133-0) 314 K/UL See_Comment [Automated messa ge] The system which generated this result transmitted reference range: 130-400 K/UL. The reference range was not used to interpret this result as normal/abnormal. RBC (test code = 49456-8) 4.48 M/UL See_Comment [Automated messa ge] The system which generated this result transmitted reference range: 3.80-5.40 M/UL. The reference range was not used to interpret this result as normal/abnormal. WBC (test code = 37215-1) 4.0 K/UL See_Comment [Automated messa ge] The system which generated this result transmitted reference range: 3.5-11.0 K/UL. The reference range was not used to interpret this result as normal/abnormal. FERRITIN (test code = 11145-8) 23 NG/ML See_Comment [Automated messa ge] The system which generated this result transmitted reference range: 13-200 NG/ML. The reference range was not used to interpret this result as normal/abnormal. VITAMIN D, 25 OH (test code = 1989-) 38 NG/ML SEE BELOW NG/ML FOLIC ACID (test code = 2284-8) 18.2 UG/L SEE BELOW UG/L VITAMIN B-12 (test code = 2132-9) 448 PG/ML See_Comment [Automated [employer] ge] The system which generated this result transmitted reference range: 200-950 PG/ML. The reference range was not used to interpret this result as normal/abnormal. ALBUMIN (test code = 1751-7) 4.0 G/DL See_Comment [Automated [employer] ge] The system which generated this result transmitted reference range: 3.5-5.2 G/DL. The reference range was not used to interpret this result as normal/abnormal. ALKALINE PHOSPHATASE (test code = 6768-6) 96 U/L See_Comment [Automated message] The system which generated this result transmitted reference range: 40-142 U/L. The reference range was not used to interpret this result as normal/abnormal. BILIRUBIN, TOTAL (test code = 1975-2) 0.3 MG/DL See_Comment [Automated message] The system which generated this result transmitted reference range: <=1.2 MG/DL. The reference range was not used to interpret this result as normal/abnormal. BUN (test code = 3094-0) 10 MG/DL See_Comment [Automated messa ge] The system which generated this result transmitted reference range: 8-23 MG/DL. The reference range was not used to interpret this result as normal/abnormal. CALCIUM (test code = 27644-9) 9.7 MG/DL See_Comment [Automated messa ge] The system which generated this result transmitted reference range: 8.5-10.5 MG/DL. The reference range was not used to interpret this result as normal/abnormal. CALC A/G RATIO (test code = 1759-0) 1.5 RATIO See_Comment [Automated messa ge] The system which generated this result transmitted reference range: 1.0-2.6 RATIO. The reference range was not used to interpret this result as normal/abnormal. CALC BUN/CREAT (test code = 3097-3) 9 RATIO See_Comment [Automated messa ge] The system which generated this result transmitted reference range: 6-28 RATIO. The reference range was not used to interpret this result as normal/abnormal. CALC GLOBULIN (test code = 80285-5) 2.7 G/DL See_Comment [Automated messa ge] The system which generated this result transmitted reference range: 1.9-3.7 G/DL. The reference range was not used to interpret this result as normal/abnormal. CARBON DIOXIDE (test code = 1963-8) 27 MEQ/L See_Comment [Automated messa ge] The system which generated this result transmitted reference range: 19-31 MEQ/L. The reference range was not used to interpret this result as normal/abnormal. CHLORIDE (test code = 2075-0) 103 MEQ/L See_Comment [Automated messa ge] The system which generated this result transmitted reference range: 95-107 MEQ/L. The reference range was not used to interpret this result as normal/abnormal. CREATININE (test code = 2160-0) 1.09 MG/DL See_Comment [Automated messa ge] The system which generated this result transmitted reference range: 0.60-1.30 MG/DL. The reference range was not used to interpret this result as normal/abnormal. eGFR (2020 CKD-EPI) (test code = 38424-0) 54 ML/MIN/1.73 See_Comment L [Automated messa ge] The system which generated this result transmitted reference range: >60 ML/MIN/1.73. The reference range was not used to interpret this result as normal/abnormal. GLUCOSE (test code = 1558-6) 122 MG/DL See_Comment H [Automated messa ge] The system which generated this result transmitted reference range: 70-99 MG/DL. The reference range was not used to interpret this result as normal/abnormal. POTASSIUM (test code = 2823-3) 5.2 MEQ/L See_Comment [Automated messa ge] The system which generated this result transmitted reference range: 3.5-5.4 MEQ/L. The reference range was not used to interpret this result as normal/abnormal. PROTEIN, TOTAL (test code = 2885-2) 6.7 G/DL See_Comment [Automated messa ge] The system which generated this result transmitted reference range: 6.1-8.3 G/DL. The reference range was not used to interpret this result as normal/abnormal. AST (test code = 1920-8) 23 U/L See_Comment [Automated messa ge] The system which generated this result transmitted reference range: 9-40 U/L. The reference range was not used to interpret this result as normal/abnormal. ALT (test code = 1742-6) 17 U/L See_Comment [Automated messa ge] The system which generated this result transmitted reference range: 5-40 U/L. The reference range was not used to interpret this result as normal/abnormal. SODIUM (test code = 2951-2) 139 MEQ/L See_Comment [Automated messa ge] The system which generated this result transmitted reference range: 133-146 MEQ/L. The reference range was not used to interpret this result as normal/abnormal. REFERRAL- REQUEST/[id number] 21:51:44Ordered by an unspecified provider. [facility]/[id number] 14:09:28 Ordered by an unspecified provider.[facility] 2023-12-07 10:14:00* Test Item Value Reference Range Interpretation Comme nts ALANINE AMINOTRANSFERASE (te st code = ALANINE AMINOTRANSFERASE) 71 7-40 ASPARTATE TRANSAMINASE (test code = ASPARTATE TRANSAMINASE) 55 12-40 Albumin Lvl (test code = Albumin Lvl) 3.2 3.4-5.0 Alk Phos (test code = Alk Phos) 74 46-116 Glucose Lvl (test code = Glucose Lvl) 103 70-99 BUN (test code = BUN) 7 9-23 Creatinine Lvl (test code = Creatinine Lvl) 0.84 0.55-1.02 Sodium Lvl (test code = Sodium Lvl) 135 136-145 Potassium Lvl (test code = P otassium Lvl) 4.3 3.4-4.5 Chloride Lvl (test code = Chloride Lvl) 105 98-107 AGAP (test code = AGAP) 9.1 10.0-20.0 Calcium Lvl (test code = Calcium Lvl) 8.4 8.3-10.6 Bili Total (test code = Bili Total) 0.39 0.20-1.10 B/C Ratio (test code = B/C Ratio) 8 1 6-25 Total Protein (test code = T otal Protein) 6.1 5.7-8.2 Globulin (test code = Globulin) 2.9 2.0-4.0 A/G Ratio (test code = A/G Ratio) 1.1 1 0.7-1.6 CO2 (test code = CO2) 25.2 20.0-31.0 eGFR (test code = eGFR) 74 Magnesium Lvl (test code = M agnesium Lvl) 2.01 1.60-2.60 Phosphorus (test code = Phosphorus) 2.3 2.4-5.1 [id number] 10:14:00* Test Item Value Reference Range Interpretation Comme nts PT (test code = PT) 13.6 s 12.0-14.7 INR (test code = INR) 1.02 1 0.85-1.17 Segmented Neutrophils (test code = Segmented Neutrophils) 70.7 45.0-75.0 Lymphocytes (test code = Lymphocytes) 17.0 20.0-40.0 Monocytes (test code = Monocytes) 8.0 2.0-12.0 Eosinophils (test code = Eosinophils) 3.5 <=4.0 Basophils (test code = Basophils) 0.8 <=1.0 Segmented Neutrophils # (luciano t code = Segmented Neutrophils #) 4.8 1.5-8.1 Lymphocytes # (test code = Lymphocytes #) 1.2 1.0-5.5 Monocytes # (test code = Monocytes #) 0.5 <=0.8 Eosinophils # (test code = Eosinophils #) 0.2 <=0.5 Basophils # (test code = Basophils #) 0.1 <=0.2 PTT (test code = PTT) 80.8 s 22.9-35.8 WBC (test code = WBC) 6.8 3.7-10.4 RBC (test code = RBC) 4.06 4.20-5.40 Hgb (test code = Hgb) 11.7 12.0-16.0 Hct (test code = Hct) 35.0 36.0-48.0 MCV (test code = MCV) 86.3 80.0-98.0 MCH (test code = MCH) 29.0 pg 27.0-31.0 MCHC (test code = MCHC) 33.6 32.0-36.0 RDW - CV (test code = RDW - CV) 15.1 11.5-14.5 Platelet (test code = Platelet) 232 133-450 MPV (test code = MPV) 8.5 7.4-10.4 [facility]2024-04-22 05:33:00* Test Item Value Reference Range Interpretation Comme nts UA Turbidity (test code = UA Turbidity) Clear (12/07/23 12:33 AM) UA Spec Grav (test code = UA Spec Grav) 1.006 1 UA pH (test code = UA pH) 7.0 1 5.0-8.0 UA Protein (test code = UA Protein) Negative mg/dL UA Glucose (test code = UA Glucose) Negative mg/dL UA Ketones (test code = UA Ketones) Negative mg/dL UA Bili (test code = UA Bili) Negative *NA*(12/07/23 12:33 AM) UA Blood (test code = UA Blood) Small *ABN*(12/07/23 12:33 AM) UA Nitrite (test code = UA Nitrite) Negative (12/07/23 12:33 AM) UA Leuk Est (test code = UA Leuk Est) Negative (12/07/23 12:33 AM) UA Ascorbic Acid (test code = UA Ascorbic Acid) Negative 16*NA*(12/07/23 12:33 AM) UA Sq Epi (test code = UA Sq Epi) Occasional /LPF UA WBC (test code = UA WBC) no gt <=5 UA RBC (test code = UA RBC) no gt <=2 UA Bacteria (test code = UA Bacteria) Occasional /HPF UA Color (test code = UA Color) Ltyellow UA Urobilinogen (test code = UA Urobilinogen) <=1.0 mg/dL 0.1-1.0 [facility] [id number] 02:30:00* Test Item Value Reference Range Interpretation Comme nts ABO/Rh (test code = ABO/Rh) O POS Antibody Scrn (test code = Antibody Scrn) Negative (12/06/23 9:30 PM) [id number] 02:30:00* Test Item Value Reference Range Interpretation Comme nts PTT (test code = PTT) 71.7 s 22.9-35.8 [id number] 00:05:00* Test Item Value Reference Range Interpretation Comme nts Coronavirus (COVID-19) TAMICA (test code = Coronavirus (COVID-19) TAMICA) Not Detected 17(12/06/23 7:05 PM) [facility] [id number] 23:44:00* Test Item Value Reference Range Interpretation Comme nts RBC product (test code = RBC product) Product available (12/06/23 6:44 PM) Platelet product (test code = Platelet product) Product available (12/06/23 6:44 PM) FFP product (test code = FFP product) Product available (12/06/23 6:44 PM) [id number] 21:04:00* Test Item Value Reference Range Interpretation Comme nts PTT (test code = PTT) 76.4 s 22.9-35.8 [facility]CHE[facility] [id number] 13:35:00* Test Item Value Reference Range Interpretation Comme nts ALANINE AMINOTRANSFERASE (test code = ALANINE AMINOTRANSFERASE) 55 7-40 ASPARTATE TRANSAMINASE (test code = ASPARTATE TRANSAMINASE) 58 12-40 Albumin Lvl (test code = Albumin Lvl) 3.5 3.4-5.0 Alk Phos (test code = Alk Phos) 72 46-116 Bili Direct (test code = Bili Direct) no gt Bili Total (test code = Bili Total) 0.37 0.20-1.10 Bili Indirect (test code = Bili Indirect) Unable to Calculate <=1.0 Total Protein (test code = Total Protein) 6.4 5.7-8.2 Globulin (test code = Globulin) 2.9 2.0-4.0 A/G Ratio (test code = A/G Ratio) 1.2 1 0.7-1.6 Glucose Lvl (test code = Glucose Lvl) 132 70-99 BUN (test code = BUN) no gt 9-23 Creatinine Lvl (test code = Creatinine Lvl) 0.89 0.55-1.02 Sodium Lvl (test code = Sodium Lvl) 131 136-145 Potassium Lvl (test code = Potassium Lvl) 4.1 3.4-4.5 Chloride Lvl (test code = Chloride Lvl) 102 98-107 AGAP (test code = AGAP) 8.0 10.0-20.0 Calcium Lvl (test code = Calcium Lvl) 8.4 8.3-10.6 CO2 (test code = CO2) 25.1 20.0-31.0 eGFR (test code = eGFR) 69 [facility][id number] 13:35:00* Test Item Value Reference Range Interpretation Comme nts Segmented Neutrophils (test code = Segmented Neutrophils) 76.3 45.0-75.0 Lymphocytes (test code = Lymphocytes) 14.1 20.0-40.0 Monocytes (test code = Monocytes) 5.5 2.0-12.0 Eosinophils (test code = Eosinophils) 3.4 <=4.0 Basophils (test code = Basophils) 0.7 <=1.0 Segmented Neutrophils # (luciano t code = Segmented Neutrophils #) 4.6 1.5-8.1 Lymphocytes # (test code = Lymphocytes #) 0.8 1.0-5.5 Monocytes # (test code = Monocytes #) 0.3 <=0.8 Eosinophils # (test code = Eosinophils #) 0.2 <=0.5 WBC (test code = WBC) 6.0 3.7-10.4 RBC (test code = RBC) 4.17 4.20-5.40 Hgb (test code = Hgb) 12.3 12.0-16.0 Hct (test code = Hct) 36.2 36.0-48.0 MCV (test code = MCV) 86.9 80.0-98.0 MCH (test code = MCH) 29.6 pg 27.0-31.0 MCHC (test code = MCHC) 34.0 32.0-36.0 RDW - CV (test code = RDW - CV) 14.9 11.5-14.5 Platelet (test code = Platelet) 216 133-450 MPV (test code = MPV) 8.1 7.4-10.4 [id number] 23:20:00* Test Item Value Reference Range Interpretation Comme nts PT (test code = PT) 13.4 s 12.0-14.7 INR (test code = INR) 1.00 1 0.85-1.17 [facility]2024-04-20 08:50:00* Test Item Value Reference Range Interpretation Comme nts Magnesium Lvl (test code = M agnesium Lvl) 2.10 1.60-2.60 Glucose Lvl (test code = Glucose Lvl) 103 70-99 BUN (test code = BUN) no gt 9-23 Creatinine Lvl (test code = Creatinine Lvl) 0.89 0.55-1.02 Sodium Lvl (test code = Sodium Lvl) 134 136-145 Potassium Lvl (test code = P otassium Lvl) 3.7 3.4-4.5 Chloride Lvl (test code = Chloride Lvl) 102 98-107 AGAP (test code = AGAP) 9.3 10.0-20.0 Calcium Lvl (test code = Calcium Lvl) 8.9 8.3-10.6 CO2 (test code = CO2) 26.4 20.0-31.0 eGFR (test code = eGFR) 69 [facility][id number] 08:50:00* Test Item Value Reference Range Interpretation Comme nts Segmented Neutrophils (test code = Segmented Neutrophils) 70.0 45.0-75.0 Lymphocytes (test code = Lymphocytes) 17.6 20.0-40.0 Monocytes (test code = Monocytes) 8.2 2.0-12.0 Eosinophils (test code = Eosinophils) 3.2 <=4.0 Basophils (test code = Basophils) 1.0 <=1.0 Segmented Neutrophils # (luciano t code = Segmented Neutrophils #) 4.7 1.5-8.1 Lymphocytes # (test code = Lymphocytes #) 1.2 1.0-5.5 Monocytes # (test code = Monocytes #) 0.5 <=0.8 Eosinophils # (test code = Eosinophils #) 0.2 <=0.5 Basophils # (test code = Basophils #) 0.1 <=0.2 WBC (test code = WBC) 6.7 3.7-10.4 RBC (test code = RBC) 4.34 4.20-5.40 Hgb (test code = Hgb) 12.7 12.0-16.0 Hct (test code = Hct) 37.3 36.0-48.0 MCV (test code = MCV) 86.0 80.0-98.0 MCH (test code = MCH) 29.3 pg 27.0-31.0 MCHC (test code = MCHC) 34.1 32.0-36.0 RDW - CV (test code = RDW - CV) 14.9 11.5-14.5 Platelet (test code = Platelet) 260 133-450 MPV (test code = MPV) 8.1 7.4-10.4 [facility] [id number] 08:50:00* Test Item Value Reference Range Interpretation Comme nts Hgb A1C (test code = Hgb A1C) 5.61 [facility] [id number] 02:12:00* Test Item Value Reference Range Interpretation Comme nts PT (test code = PT) 13.9 s 12.0-14.7 INR (test code = INR) 1.05 1 0.85-1.17 [facility] History and Physical Notes Date/Time Note Provider Source 2024-10-11 15:53:34 White Team Admit H&P PCP: Victoria Hernández Date of Service: 10/11/2024 CHIEF COMPLAINT: S/p Ablation HISTORY OF PRESENT ILLNESS Griselda Rodriguez is a 73 year old female with a PMH of HTN, obesity, CVA, HTN, HLD, CAD s/p CABG x4 w/ SALDIVAR to LAD and SVG to diagonal OM and PD, pAfib (CV 4), bilateral carotid artery stenosis, DVT, who presents for s/p ablation. Pt has a hx of paroxysmal afib which has been controlled w/ amiodarone and Eliquis. In 04/2024 pt was referred to EP for further management and ablation was scheduled. Ablation was completed today w/out any complications. Pt denies any CP, SOB, edema, dizziness, cough, abdominal pain, N/V/D. Pt currently currently HDS w/ out any complaints. Pt has a 40 pack year history. Past Histories: Patient has no past medical history on file. Patient has a past surgical history that includes arteriogram (Bilateral, 06/13/2024). Patient reports that she has quit smoking. Her smoking use included cigarettes. She has never used smokeless tobacco. Patient family history includes Coronary Heart Disease in her brother and father; Stroke in her brother and father. ? Current Facility-Administered Medications: acetaminophen (TYLENOL) tablet 650 mg, 650 mg, Oral, Q6HPRN, Stanton Lawrence DO apixaban (ELIQUIS) tablet 5 mg, 5 mg, Oral, BID, Stanton Lawrence DO [START ON 10/12/2024] aspirin chewable tablet 81 mg, 81 mg, Oral, DAILY, Stanton Lawrence DO docusate (COLACE) capsule 100 mg, 100 mg, Oral, BID, Stanton Lawrence DO [START ON 10/12/2024] escitalopram oxalate (LEXAPRO) tablet 5 mg, 5 mg, Oral, DAILY, Stanton Lawrence DO [START ON 10/12/2024] ezetimibe (ZETIA) tablet 10 mg, 10 mg, Oral, DAILY, Stanton Lawrence DO [START ON 10/12/2024] levothyroxine (SYNTHROID) tablet 100 mcg, 100 mcg, Oral, QAM-0600, Stanton Lawrenceolas, DO metoprolol tartrate (LOPRESSOR) tablet 12.5 mg, 12.5 mg, Oral, BID, Stanton Lawrenceolas, DO [START ON 10/12/2024] pantoprazole (PROTONIX) EC tablet 40 mg, 40 mg, Oral, DAILY, Stanton Lawrenceolas, DO primidone (MYSOLINE) tablet 100 mg, 100 mg, Oral, QHS, Melinda, Stanton Lobo, DO rosuvastatin (CRESTOR) tablet 40 mg, 40 mg, Oral, QHS, Melinda, Stanton Casholas, DO ? Allergies: has No Known Allergies. Review of Systems: 12 point ROS negative except per HPI PHYSICAL EXAMINATION Vitals: 10/11/24 0800 10/11/24 0830 10/11/24 0845 BP: (!) 155/69 (!) 150/89 Pulse: 67 66 Resp: 20 SpO2: 100% 97% Weight: 88 kg (194 lb) General: aox4, nad HEENT: eomi, mmm Cardio: rrr wo mrg Resp: ctab GI: abd soft, nd, nttp MSK: ngd Ext: no edema. Dorsalis pedis pulses intact. Skin: no rash on visible skin, right inguinal site appears clean w/out erythema or hematoma. Neuro: no obvious deficits Psych: alert & cooperative LABS - reviewed pertinent labs as below: Labs (last 24 hours): Chemistry CBC LFTs Coags, other 139 106 11 118 (H) - - - AST: - ALT: - PT: - INR: - 4.3 32 (H) 0.74 - AP: - T Edson: - PTT: - eGFR: 86.6 Ca: 9.6 % Juan: - Prot: - Alb: - Lact: - Procal: - Mg: - PO4: - ANC: - pBNP: - Trop I: - IMAGING - reviewed, pertinent results as below: TTE 11/2023 Care Everywhere: EF 55-60%, no wall motion abnormality ASSESSMENT/PLAN Griselda Rodriguez is a 73 year old female with PMH as listed above, admitted to the hospital with: pAfib (CV 4) S/p Ablation CAD S/p CABG x4 (SALDIVAR to LAD and SVG to diagonal, OMG, and PD) B/l Carotid Artery Stenosis HTN HLD CVA Obesity DVT Pt admitted to white team following cardiac ablation due to paroxysmal afib. Will start Eliquis. Will obtain TTE. Currently HDS w/out any complaints. Will follow w/ EP recommendations. - Admit to white team - Admission Labs - TTE - EKG qAM & CP PRN - K>4, Mg>2 - Start Eliquis 5 mg tablet PO BID - Start Pantoprazole 40 mg tablet PO daily for 30 days - Start Carafate 1 g PO Q6H daily for 14 days on empty stomach. Administer oral medications 2 hours prior to carafate. - Cw ASA 81 mg tablet PO daily - C/w Rosuvastatin 40 mg tablet PO daily - C/w Zetia 10 mg tablet PO daily - C/w Metoprolol tartrate 12.5 mg tablet PO BID Hypothyroidism - C/w Levothyroxine 100 mcg tablet PO daily Essential Tremor - C/w Primidone 100 mg tablet PO QHS DIET: Cardiac (2 gm Sodium, Low Fat, Low Cholesterol) Diet; Diet Texture: Regular. DVT ppx: on therapeutic AC: Eliquis Bowel reg: Docusate GI ppx: Pantoprazole Therapy: Not indicated PAIN: Tylenol Code Status: Full Code Stanton Lawrence DO Internal Medicine PGY-1 [place] [employer]IN CONSULTANT Associated attestation - Erick Aponte MD - 10/12/2024 11:43 AM RETAIL SALES VITAMIN CONSULTANT I reviewed patient's chart, vitals, lab work, current medications and other diagnostic studies. I saw and examined the patient on the date specified in the note and agree with the detailed note. I actively participated in the decision-making process. Erick Aponte MD Wireless Telegrapher Division of Cardiology [facility] 2024-06-13 06:18:31 Please see Clinic H&P written by Dr. Castro on 05/30/24 with no changes to report. OR Plan: Carotid arteriogram, possible angioplasty, possible stenting. Temp: [36 ?C (96.8 ?F)] Pulse: [61] Resp: [18] BP: (149)/(55) Paulina Hankins, MD Associated attestation - Jose Antonio Bennett MD - 06/13/2024 11:30 AM CDT I was present and performed the physical exam on 06/13/2024 and discussed the care with the resident staff, Dr. Hankins. I agree with the note as written and I participated in all of the sarmiento aspects of the decision making. Jose Antonio Bennett MD Source Note - Jamie Castro MD - 05/30/2024 3:45 PM CDT VASCULAR SURGERY CLINIC NOTE Chief Complaint: F/u bilateral carotid stenosis HPI 05/09/24: Griselda Rodriguez is a 73 year old female with PMH Afib on Eliquis, bilateral carotid artery stenosis, CAD s/p CABG x4 (12/07/23), lower extremity DVT who presents to clinic today for follow up for bilateral carotid artery disease. Patient is doing well today. Denies temporary vision loss, numbness/weakness in face/extremities, difficulty with speech, chest pain. Denies neck surgery. Interval HPI 03/28/24: Griselda Rodriguez is a 73 year old female with a medical history as listed below who presents to vascular clinic to establish care for bilateral carotid artery stenosis. Recent CABG x4 on 12/07/2023. Ultrasound of the bilateral carotid arteries at that time was notable for complete occlusion on the right and partial occlusion on the left, but she doesn't remember the percentages. Reports history of TIA which was recently diagnosed on imaging but denies any symptoms of stroke. Dr. Salamanca is her cooker syrup. History of heavy cigarette use but quit in November 2023. 05/30/24 Presents for follow up after CTA head and neck. Imaging confirms high grade stenosis. Patient denies any TIA like symptoms since last clinic visit. Reports she is seeking definitive treatment for her carotid artery stenosis. Review of Systems: Per HPI Past Medical History: Atrial fibrillation (on Eliquis) LLE DVT HTN Bilateral carotid artery stenosis Coronary Artery Disease Past Surgical History: CABG x4 (12/07/2023) Family History: Family History Problem Relation Age of Onset Stroke Father Coronary Heart Disease Father Stroke Brother Coronary Heart Disease Brother Social History: Social History Socioeconomic History Marital status: Spouse name: Not on file Number of children: Not on file Years of education: Not on file Highest education level: Not on file Occupational History Not on file Tobacco Use Smoking status: Former Types: Cigarettes Smokeless tobacco: Never Substance and Sexual Activity Alcohol use: Not on file Drug use: Not on file Sexual activity: Not on file Other Topics Concern Not on file Social History Narrative Not on file Social Determinants of Health Financial Resource Strain: Not on file Food Insecurity: Not on file Transportation Needs: Not on file Physical Activity: Not on file Stress: Not on file Social Connections: Not on file Housing Stability: Not on file Medications: Current Outpatient Medications Medication Sig Dispense Refill clopidogreL 75 mg tablet Take 1 tablet by mouth in the morning. 30 tablet 11 rosuvastatin 40 mg tablet Take 1 tablet by mouth at bedtime. sacubitriL-valsartan (ENTRESTO) 49-51 mg tablet Take 1 tablet by mouth in the morning and 1 tablet in the evening. amiodarone 200 mg tablet Take 1 tablet by mouth in the morning. amLODIPine 10 mg tablet Take 1 tablet by mouth in the morning. apixaban (ELIQUIS) 5 mg tablet Take 2 tablets by mouth in the morning and 2 tablets in the evening. aspirin 81 mg chewable tablet Take 1 tablet by mouth in the morning. DOCUSATE SODIUM ORAL Take by mouth 2 (two) times daily. escitalopram oxalate 5 mg tablet Take 1 tablet in the morning. primidone 50 mg tablet Take 2 tablets by mouth at bedtime. foLIC acid 1 mg tablet Take 1 tablet by mouth in the morning. furosemide 40 mg tablet TAKE ONE-HALF (1/2) TABLET(S) BY MOUTH DAILY. pantoprazole sodium (PANTOPRAZOLE ORAL) Take 40 mg by mouth in the morning and 40 mg in the evening. ezetimibe 10 mg tablet Take 1 tablet by mouth in the morning. 90 tablet 3 levothyroxine 100 mcg tablet every morning. metoprolol tartrate 25 mg tablet Take 1 tablet by mouth in the morning and 1 tablet in the evening. No current facility-administered medications for this visit. Allergy: No Known Allergies Physical Exam: Temp: [36.5 ?C (97.7 ?F)] Pulse: [69-71] Resp: [20] BP: (142-153)/(64-70) MAP (mmHg): [90-98] General: awake, alert, appears stated age, NAD HEENT: normocephalic, atraumatic Lungs: unlabored on RA Cardio: regular rate Abdomen: soft, nondistended Skin: no clubbing, cyanosis, or edema Neuro: sensory and motor grossly intact Labs: No new labs Radiology: CTA Neck IMPRESSION 1. Age indeterminant occlusion seen involving the left cervical ICA starting at the bifurcation. 2. There is an approximately 50% stenosis seen involving the right carotid bulb/proximal cervical ICA. Assessment & Plan: Griselda Rodriguez is a 73 year old female with PMH Afib on Eliquis, bilateral carotid artery stenosis, CAD s/p CABG x4 (12/07/23), lower extremity DVT who presents to vascular clinic to follow up for bilateral carotid artery stenosis. Patient is a candidate for TCAR . She is currently on ASA and eliquis. Will add on plavix per protocol. Patient was advised to hold eliquis 48 pre procedure. She is scheduled for OR 06/13/24. -Start plavix -Hold eliquis 48hrs pre procedure -OR 06/13/24 Jamie Castro MD General Surgery PGY-2 T ORTHOPAEDIC SURGERY [facility] Procedure Notes Date/Time Note Provider Source 2024-10-11 15:46:36 Afib ablation Details: The risks and benefits of GA, electrophysiology study, trans-septal puncture, endocardial radiofrequency ablation, possible direct current cardioversion, atrial fibrillation ablation, and atrial flutter ablation were explained to the patient in detail. Risks including, but not limited to bleeding, infection, heart block, atrio-esophageal fistula, pulmonary vein stenosis, stroke, cardiac tamponade, pneumothorax, , and need for cardiac surgery were explained. The patient expressed verbal understanding and agreed to proceed with the procedure as outlined. Informed written consent was signed and placed in the chart prior to proceeding. After informed consent was obtained, the patient was brought to the Cardiac Electrophysiology Laboratory in a fasting state and was prepped and draped in the usual sterile fashion. Both groin areas were infiltrated with 0.5% lidocaine. Presenting rhythm was sinus rhythm Prior to the procedure a transesophageal echocardiogram was performed and demonstrated normal LVEF, normal LA size and no left atrial thrombus. Using modified Seldinger technique, sheaths and catheters were inserted and advanced as follows. An 18,10,7 sheath was placed in Rt femoral vein. CS catheter was inserted via the 7 Fr sheath and placed with its tip in the distal coronary sinus. Next, an intracardiac echocardiogram probe was inserted into the 10 Fr sheath. We attempted TS using Faraconnect however the sheath did not cross. Under fluoroscopic and intra-cardiac echocardiography guidance, trans-septal puncture was performed using Verscross [place] sheath. Intracardiac echocardiography (ICE): An 9 Polish viewflex ICE catheter was inserted through the right femoral vein sheath and under fluoroscopic direction was placed into the right atrium. ICE was used to assist with transseptal puncture . Furthermore it was left in place during the entire procedure for monitoring of possible development of pericardial effusion or tamponade. Pre TS puncture I did detailed ICE exam, initially I examine the area of the right atrium, tricuspid valve and right ventricle inflow. With gradual posterior rotation I examined the following Cardiac structures ; interatrial septum, left atrium, mitral valve annulus, mitral valve leaflet, KRISTAN, left superior PV, left inferior PV, posterior wall of the left atrium, right pulmonary veins. I re-centered the ICE catheter facing the RV inflow and with anterior flexion of the ICE catheter and septal rotation I gently advanced the ICE cathter into the right ventricle. With gradual septal-Posterior rotation of the ICE catheter I examined the left ventricular cavity, posterior medical papillary muscle, anterior lateral papillary muscle. With more clockwise rotation of the ICE catheter I was able to examine AV leaflet in cross sectional view along with RVOT, pulmonary valve and PA. From that view, I reexamined the KRISTAN lobes and left superior PV. At end of exam the ICE cathter was kept inside the RV for monitoring of possible development of pericardial effusion. Patient at baseline has small size effusion around lateral wall of the LV. Transseptal puncture: An 8.5F TS Verscross [place] sheath was advanced via 12 Fr sheath in right femoral vein. After placing and confirming the position of Ge[place] sheath tip on the interatrial septum fossa ovalis area with ICE and fluorsoscopy guidance, the TS puncture was performed, guidewire was advanced into LA then PV with ICE guidance. Sheath and dilator were inserted into mid LA cavity under fluoroscopic direction. 14518 units of heparin was administered intravenously at time of obtaining TS puncture prior to advancing the sheath and dilator. ACT was measured every 10 minutes and additional doses of heparin were administered in order to maintain ACT between 350-400 seconds. The Ge[place] dilator and guide wire were removed and sheath was flushed and maintained on continuous drip with heparinized saline. Left atrial mapping and ablation: A-PVI: A 3-D electroanatomic map of the left atrium was performed using FILEMON mapping system and LA pacing. Mapping was performed with high density mapping catheter. Pulmonary veins were identified using fluoroscopy, ICE, and the mapping system. The patient had a total of 3 right veins and one common left vein. Next irrigated tip ablation catheter was used to deliver circumferential lesions around the right and left pulmonary veins. Re mapping showed active connection via ridge and right veins Layla. Add on RF ablation to these areas performed. Complete isolation of the left vein was confirmed with complete elimination of the PV signals during re-mapping using HD grid and pacing for exit block. A temperature probe had been placed in the esophagus posterior to the left atrium prior to the start of the case. There were no significant rises in temperature with ablation on the posterior wall. Short bursts of energy were used in this region to avoid esophageal injury. Heparin was administered and activated clotting times were measured throughout the procedure to maintain adequate anticoagulation (ACT 350-400 sec). After completion of the study a repeat ACT was drawn, and protamine was given.After wait time of 10 minutes from protamine administration the sheaths were removed and figure of 8 suture was used to achieve hemostasis. Excellent hemostasis was achieved. The patient was then extubated and transferred to recovery for observation. The patient the procedure well and there were no acute complications. My plan is to have the patient follow up with me in clinic in three months. Conclusions: Underwent successful electrophysiology study and radiofrequency ablation as part of the treatment strategy for his symptomatic atrial fibrillation with 1-PVI Plan: Remove figure of 8 from both groins in 6 hr. Admit to C, Bedrest for 6 hours with right leg flat Suture removal in 3 hr. Anticoagulation: start 20 mg Xarelto tonight at 11 PM Antiarrhythmic therapy: None Start pantoprazole 40mg daily for 30 days Start Carafate 1 gram PO Q6h daily for 14 days. Give on an empty stomach. Administer oral medications 2 hours prior to carafate. Follow up in the arrhythmia clinic as scheduled in 1 month [facility] Notes Date/Time Note Provider Source 2024-11-11 13:09:55 Notified pt of physician review and recommendations from recent sleep study. Call forwarded to PSS to schedule with sleep medicine. Hafsa Fermin RN [facility] 2024-11-11 11:01:03 MB is full. Not able to schedule appt. Leeann Puente [facility] 2024-11-11 09:59:11 Routed to PSS to schedule patient for appt with sleep medicine at [facility]. Fiona Hardy RN [facility] 2024-11-10 14:01:13 Images from the original note were not included. Chelsea Salamanca MD P Cardiology Nurse Please make an appointment with sleep clinic for obstructive sleep apnea. Attempted to call patient, no answer. Unable to LVM mailbox is full. Maritza Martinez RN [facility] 2024-11-09 11:09:35 Attempted to call pt to notify that the test is currently being reviewed by the physician and we will get back with her as soon as this is complete. No answer, no VM Hafsa Fermin RN [facility] 2024-11-09 09:33:49 Griselda Rodriguez is a 74 year old female would like a call back to discuss Sleep Study results Please advise [phone] Lili Alvarado [facility] 2024-11-08 20:03:22 Griselda Rodriguez is a 74 year old female Patient is returning a call about sleep study. Please advise. Carol Edwards [facility] 2024-10-31 11:00:00 Addended by: CHELSEA SALAMANCA MD on: 11/09/2024 04:27 PM Modules accepted: Orders [facility] 2024-10-12 14:52:24 Problem: Falls, Risk of Goal: Absence of falls 10/12/2024 1452 by Galina Paz RN Outcome: Adequate for discharge 10/12/2024 1221 by Galina Paz RN Outcome: Progressing as expected Problem: Cardiac Output - Decreased Goal: Cardiac output within specified parameters 10/12/2024 1452 by Galina Paz, RN Outcome: Adequate for discharge 10/12/2024 1221 by Galina Paz, RN Outcome: Progressing as expected Goal: Absence of signs and symptoms of decreased cardiac output 10/12/2024 1452 by Galina Paz, RN Outcome: Adequate for discharge 10/12/2024 1221 by Galina Paz, RN Outcome: Progressing as expected Problem: Bleeding, Risk of Goal: Absence of impaired coagulation signs and symptoms 10/12/2024 1452 by Galina Paz, RN Outcome: Adequate for discharge 10/12/2024 1221 by Galina Paz, RN Outcome: Progressing as expected Goal: Absence of active bleeding 10/12/2024 1452 by Galina Paz, RN Outcome: Adequate for discharge 10/12/2024 1221 by Galina Paz RN Outcome: Progressing as expected Problem: Procedure Routine Goal: Absence of post-procedure complications 10/12/2024 1452 by Galina Paz RN Outcome: Adequate for discharge 10/12/2024 1221 by Galina Paz RN Outcome: Progressing as expected Goal: Knowledge of procedure 10/12/2024 1452 by Galina Paz RN Outcome: Adequate for discharge 10/12/2024 1221 by Galina Paz RN Outcome: Progressing as expected [facility] Galina Paz RN [facility] 2024-10-12 12:22:02 Problem: Falls, Risk of Goal: Absence of falls Outcome: Progressing as expected Problem: Cardiac Output - Decreased Goal: Cardiac output within specified parameters Outcome: Progressing as expected Goal: Absence of signs and symptoms of decreased cardiac output Outcome: Progressing as expected Problem: Bleeding, Risk of Goal: Absence of impaired coagulation signs and symptoms Outcome: Progressing as expected Goal: Absence of active bleeding Outcome: Progressing as expected Problem: Procedure Routine Goal: Absence of post-procedure complications Outcome: Progressing as expected Goal: Knowledge of procedure Outcome: Progressing as expected [facility] 2024-10-12 00:29:42 Problem: Falls, Risk of Goal: Absence of falls 10/12/202428 by Savannah Adler RN Outcome: Progressing as expected 10/12/202427 by Savannah Adler RN Outcome: Progressing as expected Problem: Cardiac Output - Decreased Goal: Cardiac output within specified parameters 10/12/202428 by Savannah Adler RN Outcome: Progressing as expected 10/12/202427 by Savannah Adler RN Outcome: Progressing as expected Goal: Absence of signs and symptoms of decreased cardiac output 10/12/202428 by Savannah Adler RN Outcome: Progressing as expected 10/12/2024 002 by Savannah Adler RN Outcome: Progressing as expected Problem: Bleeding, Risk of Goal: Absence of impaired coagulation signs and symptoms Outcome: Progressing as expected Goal: Absence of active bleeding Outcome: Progressing as expected Problem: Procedure Routine Goal: Absence of post-procedure complications Outcome: Progressing as expected Goal: Knowledge of procedure Outcome: Progressing as expected [facility] 2024-10-07 16:16:44 [facility] EP LAB PRE-CALL INSTRUCTIONS EP Instructions were sent to patient via: Other TELEPHONE Your physician has determined that you need to undergo a(n) EPS w/ RFA procedure. Listed below are some instructions for you to follow prior to the procedure. Do not eat or drink anything after midnight the night before the procedure, except for enough water to take your medications if so directed. Take all medications except do not take metformin (Glucophage) 2 days prior to the procedure and do not take insulin or furosemide (lasix) the day of the procedure. If you are on blood thinners special instructions will be given to you prior to the procedure. If you are allergic to iodine or shellfish, take pre-treatment medications as directed. Please call your referring physician for prescription. Bring a list of all current medications. Bring one adult family member or friend with you to drive you home, as you will be unable to drive for 48 hours after the procedure. Due to limited space and patient privacy, only one (1) visitor is permitted with the patient while they are recovering in the recovery area. No children under the age of 14 years will be allowed in recovery area. Please park in the Hospital Garage via [address] from either [address] or [address]. Bring your parking ticket with you to be validated, only one parking ticket may be validated per patient. There may be a possibility of hospital admission or late evening discharge; therefore, bring leisure reading and an overnight bag. On the day of your procedure, come directly to the Electrophysiology Lab hr receptionist desk, located on the 6th floor of [facility] ([phone] You will be escorted to the Cardiac Cath/EP recovery room. Please call the Electrophysiology Lab at if you have any questions regarding your procedure. HOLD ELIQUIS PM DOSE ON Thursday10/10/2024 Date of Procedure: 10/11/2024 Time of Procedure: 729 Vendors Needed: Vendors Verified: Anesthesia Verified: Anesthesia Consent: Drug Allergies? Labs Verified? Note in Chart and any Important Info needed for the case: Instructions given to patient: yes Patient provided with preferred teaching of verbal information on 10/07/2024. Shows readiness to learn. Verbal instruction teaching provided. Individual is able to read and verbalizes understanding of teaching provided. S Morillo RN [facility] 2024-10-07 13:29:03 Patient called numerous times about procedure scheduled for 10/11. No answer at this time. Will inform charge nurse. [facility] 2024-10-07 09:30:00 Images from the original note were not included. Venipuncture collection performed by clean technique on the left anticubitus. Total of 1 attempts were made. Slight pressure and a bandage/dressing were applied to the site(s). The patient experienced no complications. The following specimens were processed according to instructions and sent to [facility] laboratories per lab order on 08/23/24: LT BLUE 1 SST 1 RED LAV 1 PPT DK GREEN (LiHep) DK GREEN (SodH) ESPOSITO DK BLUE (K2) DK BLUE (S) ACD Blood Culture NIPT/NTD [facility] 2024-10-06 09:45:24 Attempted to contact the patient and or family member to discuss arrival time and procedure instructions for and up coming appointment. S Dniero RN [facility] 2024-10-05 10:58:43 Attempted to contact patient and family member, to discuss arrival time and procedure instructions. No answer, left message. [facility] 2024-10-04 11:58:56 Attempting to contact the patient to discuss the arrival time and procedure instructions. No answer, no message - not available at this time. [facility] 2024-08-23 15:03:15 Addended by: SHREYA SHEA RN on: 08/23/2024 03:03 PM Modules accepted: Orders [facility] 2024-08-23 15:02:38 Lab orders placed. [facility] 2024-08-23 12:55:28 Called patient to schedule Afib Ablation with Dr. Jackson. Patient agreed to have procedure on 10/11/24 - Labs 10/07/24. Nurse will contact patient for arrival time and instructions. [facility] Rosalinda Mahmood [facility] 2024-06-13 07:53:00 BRIEF OPERATIVE NOTE Date of Surgery: 06/13/2024 Surgeons and Role: * Jose Antonio Bennett MD - Primary * Richard Savage MD - Resident - Assisting Pre-Op Diagnosis: Bilateral carotid artery stenosis [I65.23] Post-Op Diagnosis Codes: * Bilateral carotid artery stenosis [I65.23] Procedures: Procedure(s) (LRB): ARTERIOGRAM (Bilateral) CPT: CODINGHELP, Any Complications Encounters: none Estimated Blood Loss: 25cc Specimens Removed: * No specimens in log * Implant Name Type Inv. Item Serial No. High School Assistant Principal Lot No. LRB No. Used Action ANGIO-SEAK VIP 6RF TERUMO #[id number] - SNA ANGIO-SEAK VIP 6RF TERUMO #[id number] NA TERUMO [id number] Right 1 Implanted Patient's Condition: stable Findings: No significant stenosis of R ICA Occluded L ICA Any other important information: - Lay flat with R leg straight for 2 hrs Please see dictated operative report for additional detail. Richard Savage MD PGY-5, Vascular Surgery Associated attestation - Jose Antonio Bennett MD - 06/13/2024 11:30 AM CDT I was present in the OR for all of the sarmiento portions of the procedure and immediately available throughout the entire procedure. Jose Antonio Bennett MD [facility] 2024-05-11 11:19:57 Daughter called back. Pt is not taking zetia yet. [facility] still has rx and will get it ready for her. Hafsa Fermin RN [facility] 2024-05-11 10:55:49 Lvm for pt's daughter to call back. Showing pt is to be taking zetia 10mg sent to B 02/17/24 and rosuvastatin 40mg. Which one is pt missing? [facility] 2024-05-11 09:56:43 Patient's daughter Graeme called stating Dr. Salamanca took the patient off Lipitor, she was under the impression he was going to prescribe her something else instead, but she has no new medications. Please advise. Hiwot Villa [facility] 2024-02-19 11:26:02 Patient returned call, was given LDL results and recommendation to start Zetia per Dr. Salamanca's note. She verbalized understanding via teachback. ANNA UNGER RN 02/19/2024 11:26 AM Anna Unger RN [facility] 2024-02-19 10:34:10 2nd attempt to contact, LVM for pt to return call to clinic. ANNA UNGER RN 02/19/2024 10:34 AM ----- Message from Chelsea Salamanca MD sent at 02/12/2024 9:35 AM CDT ----- I reviewed her labs. LDL is still suboptimal. Recommend to add Zetia 10 mg daily. Sent to [id number] [place] [address] [facility] MARTIN Manzo [facility] 2024-02-17 13:00:46 LVM to call clinic regarding results and recommendations and new medication [facility] 2024-01-25 09:41:00 Regarding: apptesc ----- Message from Elisha Hameed sent at 01/25/2024 9:40 AM CDT ----- Griselda Rodriguez is a 73 year old female Daughter is calling saying her mother is still having dizzy spells. She went into the Er Thursday and they told her she needs to be seen by her cooker syrup sooner than scheduled appt. Annamarie Yancey RN [facility] 2024-01-25 09:41:00 Griselda Rodriguez is a 73 year old female whose daughter is calling for sooner cardiology appointment. Reports told by ER yesterday needed to follow up with cardiology. Went to ER due to syncope. Daughter is not with pt at this time. Daughter verbalized understanding this RN will send msg to cardiology clinic for follow up. Daughter had no further questions or concerns at this time. Annamarie Yancey RN Reason for Disposition Requesting regular office appointment Protocols used: Information Only Call - No [id number] [facility] 2024-01-10 09:30:00 Regardin yr/female/ current blood pressure 112/56/ feeling dizzy and disoriented x now ----- Message from Charlene Luo sent at 01/10/2024 9:30 AM CDT ----- Griselda Rodriguez is a 73 year old female Patient current blood pressure is 112/56 , feeling dizzy and disoriented x now . Sharita Salmeron RN [facility] [facility] 09[facility]30:00 Adult Triage Assessment Last Clinic Visit: 01/01/2024-CAD Primary Symptom: Lightheaded, disoriented, not knowing where Im going, dizzy. Onset / Duration: Since 01/05/2024 Location / Description: She states she had Quadruple Heart Bypass surgery at [facility] on 12/07/2023. She states her BP has been low since the surgery, but it is lower today. At 0900 today 112/56. While on the phone with me, her daughter took it again, 114/64, HR 65. Patient states she knows who and where she is, but she just feels dizzy and lightheaded, and feels like she might pass out when she gets up. Pain / Severity: Back pain from surgery, 5/10 pain. Associated Symptoms: Denies chest pain, SOB. Speaking in full, clear sentences. Fever / Method: Denies, temp not taken. Hydration: Ate chicken noodle soup today. Last void at 6 am today. Peeing normally. Treatment so far: Amiodarone 200mg taken at 0900 today, Amlodipine 10 mg at 0900 today, Eliquis 5 mg at 0900 today, Metoprolol 25 mg at 0900 am today. Currently sitting down. Effect on ADL's: Holds on to daughter when she gets up, she feels like she might fall when she gets up. 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 "Per pt. I spoke with both her and her daughter. I advised her daughter to take her to the Emergency Room. Her daughter states she will take her to the ER in [place]. 911 precautions reinforced. I advised them to take the ER paperwork to the next office appointment with Dr Salamanca. They stated understanding. [facility] [employer] 2024-01-01 13:28:52 [facility] [employer] 2023-12-11 06:15:00 PROCEDURE INFORMATIO N: Exam: XR Chest Exam date and time: 12/11/2023 6:07 AM Age: 73 years old Clinical indication: Condition or disease; Additional info: /s/p cabg TECHNIQUE: Imaging protocol: Radiologic exam of the chest. Views: 1 view. COMPARISON: CHEST 1VIEW DX 12/10/2023 6:11 AM FINDINGS: Tubes, catheters and devices: Surgical clips overlie the mediastinum. Mediastinal drainage catheter has been removed. Left-sided chest tube has been removed. Lungs: Mild bilateral perihilar and basilar interstitial lung opacities, suggesting pulmonary edema versus infiltrates. The peripheral lungs are otherwise clear. No consolidation. The pulmonary opacities are most prominent within the lower left lung. Pleural spaces: No pleural effusion. No pneumothorax. Heart/Mediastinum: Cardiac silhouette appears mildly enlarged. Vasculature: [id number] atherosclerotic calcification demonstrated within the aorta. Bones/joints: Sternotomy wires, hardware is demonstrated. Generalized bony degenerative changes. Soft tissues: Right neck sheath tip is positioned over the upper chest region. IMPRESSION: 1. Mild interstitial pulmonary edema versus infiltrates. 2. Mild enlarged cardiac silhouette. Vladimir Bedoya MD On 12/11/2023 08:43:14; [id number] [facility] 2023-12-10 06:25:00 PROCEDURE INFORMATIO N: Exam: XR Chest Exam date and time: 12/10/2023 6:11 AM Age: 73 years old Clinical indication: Condition or disease; Additional info: S/P cabg/s/p cabg TECHNIQUE: Imaging protocol: Radiologic exam of the chest. Views: 1 view. COMPARISON: CHEST 1VIEW DX 12/09/2023 6:15 AM FINDINGS: Tubes, catheters and devices: Left-sided chest tube. Mediastinal drain. Right IJ central line, tip projects over SVC. Lungs: Prominence of central pulmonary vasculature with bilateral perihilar and lower lung opacities. This is most compatible with vascular congestion and edema. Mildly worsened appearance compared to prior study. Infection should be excluded clinically. Pleural spaces: No pleural effusion. No pneumothorax. Heart/Mediastinum: Cardiac silhouette is enlarged. Vasculature: Aorta tortuous and atherosclerotic. Bones/joints: Status post sternotomy. IMPRESSION: Mild worsening of bilateral pulmonary opacities, correlate for worsening edema or pneumonia. Rico Rodarte MD On 12/10/2023 07:25:06; [id number] [facility] 2023-12-09 06:10:00 PROCEDURE INFORMATION: Exam: XR Chest Exam date and time: 12/09/2023 6:15 AM Age: 73 years old Clinical indication: Condition or disease; Additional info: S/P cabg/s/p cabg TECHNIQUE: Imaging protocol: Radiologic exam of the chest. Views: 1 view. COMPARISON: CHEST 1VIEW DX 12/08/2023 6:07 AM FINDINGS: Tubes, catheters and devices: Right jugular central line terminates in the upper SVC. Left chest tubes and mediastinal drains in place. Lungs: Improving right upper lobe patchy opacities. Bilateral reticular and interstitial pulmonary opacities are otherwise similar to previous. Slightly diminished lung volumes in the interval. No other new infiltrates. Pleural spaces: Unremarkable. No pleural effusion. No pneumothorax. Heart/Mediastinum: Cardiomediastinal silhouette is stable. Bones/joints: Median sternotomy wires. No new bony abnormality. IMPRESSION: Improved right upper lobe patchy opacities. Other bilateral reticular and interstitial opacities are otherwise essentially stable. No pleural effusion or pneumothorax. Calin Calvillo MD On 12/09/2023 08:07:24; [id number] [facility] 2023-12-08 06:20:00 PROCEDURE INFORMATIO N: Exam: XR Chest Exam date and time: 12/08/2023 6:07 AM Age: 73 years old Clinical indication: Condition or disease; Additional info: S/P cabg/s/p cabg TECHNIQUE: Imaging protocol: Radiologic exam of the chest. Views: 1 view. COMPARISON: CHEST 1VIEW DX 12/07/2023 7:31 PM FINDINGS: Tubes, catheters and devices: Left-sided chest tubes and mediastinal drains. Patient has been extubated. Stable position right internal jugular catheter tip at the proximal superior vena cava. Lungs: Mildly improved right upper lobe consolidative opacity. Stable prominence of the pulmonary vasculature and bilateral coarse interstitial opacities. Stable left lower lobe atelectasis. Pleural spaces: No pneumothorax or pleural effusion. Heart/Mediastinum: Cardiomediastinal silhouette is within normal limits. Bones/joints: Sternotomy wires. Degenerative changes of the spine. IMPRESSION: 1. Mild improvement of right upper lobe opacity. 2. Stable interstitial pulmonary edema. Regina Zee MD On 12/08/2023 08:11:06; [id number] [facility] 2023-12-07 19:40:21 PROCEDURE INFORMATIO N: Exam: XR Chest Exam date and time: 12/07/2023 7:31 PM Age: 73 years old Clinical indication: Device placement; Additional info: Respiratory distress/s/p cabg TECHNIQUE: Imaging protocol: Radiologic exam of the chest. Views: 1 view. COMPARISON: CHEST 1VIEW DX 12/06/2023 6:59 PM FINDINGS: Tubes, catheters and devices: Right-sided central line noted in the superior SVC. ET tube noted the clavicle heads. Left sided chest tube and mediastinal drains noted. Lungs: Right upper lung opacity noted. There is mild prominence of the pulmonary vascular markings. No focal airspace opacities appreciated. Pleural spaces: No significant pleural effusion or pneumothorax appreciated. Heart/Mediastinum: Cardiomediastinal silhouette is enlarged. Bones/joints: Sternotomy wires noted. IMPRESSION: Mild pulmonary vascular congestion and postoperative changes with left upper lung air space disease. Please correlate. Follow up recommended. Lore Lopez MD On 12/07/2023 20:17:27; [id number] [facility] 2023-12-06 18:50:00 PROCEDURE INFORMATIO N: Exam: XR Chest Exam date and time: 12/06/2023 6:59 PM Age: 73 years old Clinical indication: Chest pain/pre op testing TECHNIQUE: Imaging protocol: Radiologic exam of the chest. Views: 1 view. COMPARISON: BRAIN/NECK CTA 12/05/2023 1:03 PM FINDINGS: Tubes, catheters and devices: None. Lungs: The lungs appear clear. Pleural spaces: No pleural effusion. No pneumothorax. Heart/Mediastinum: The cardiac silhouette appears borderline prominent. Vasculature: Mild atherosclerotic calcification demonstrated within the aorta. Bones/joints: Mild generalized bony degenerative changes. Bony structures appear otherwise unremarkable. IMPRESSION: Borderline prominence of the cardiac silhouette. Vladimir Bedoya MD On 12/06/2023 19:46:59; [id number] [facility] 2023-12-05 14:00:00 Radiation Dose CTDIVOL = 0 (mGy): DLP = 743.8 (mGy-cm) PROCEDURE INFORMATION: Exam: CTA Head Without And With Contrast, Arteriography Exam date and time: 12/05/2023 1:03 PM Age: 73 years old Clinical indication: /pre op cabg; Doppler shows high grade lesion of internal rca and occlusion of L internal carotid artery TECHNIQUE: Imaging protocol: Computed tomographic angiography of the head without and with contrast. Exam focused on the arteries. 3D rendering (Not supervised by radiologist): MIP and/or 3D reconstructed images were created by the technologist. Radiation optimization: All CT scans at this facility use at least one of these dose optimization techniques: automated exposure control; mA and/or kV adjustment per patient size (includes targeted exams where dose is matched to clinical indication); or iterative reconstruction. Contrast material: OMNI; Contrast volume: 80 ml; Contrast route: INTRAVENOUS (IV); COMPARISON: CAROTID ARTERY DOPPLER BILAT US 12/04/2023 10:59 PM RADIATION DOSE METRICS: Total DLP (mGy-cm): 743.8 FINDINGS: ANTERIOR CIRCULATION: Right internal carotid artery: Multifocal areas of narrowing along the right carotid siphon with at least 50% stenosis. Measurement is difficult in these locations. Right middle cerebral artery: No occlusion or significant stenosis. No aneurysm. Right anterior cerebral artery: No occlusion or significant stenosis. No aneurysm. Left internal carotid artery: Occlusion of the left internal carotid artery to the level of the ophthalmic artery. Diminutive caliber of the supraclinoid left internal carotid artery. Left middle cerebral artery: No occlusion or significant stenosis. No aneurysm. Left anterior cerebral artery: No occlusion or significant stenosis. No aneurysm. POSTERIOR CIRCULATION: Right vertebral artery: No occlusion or significant stenosis. No aneurysm. Left vertebral artery: The intradural left vertebral artery is not visualized proximally. There appears to be a small amount of retrograde filling in the distal portion. Basilar artery: Mild atherosclerotic disease of the basilar artery. Right posterior cerebral artery: No significant stenosis or occlusion. Left posterior cerebral artery: No occlusion or significant stenosis. No aneurysm. Right posterior communicating artery: A right posterior communicating artery is demonstrated and provides the majority of right posterior cerebral artery flow. 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 Mild global brain parenchymal volume loss. Mild degree of scattered white matter lesions that are nonspecific but consistent with small vessel ischemic disease. Cerebral ventricles: Proportional size of the ventricles and sulci. Bones/joints: Degenerative changes of the spine. Paranasal sinuses: Visualized sinuses are normal. No fluid levels. Mastoid air cells: Visualized mastoids are normal. No mastoid effusion. Soft tissues: Unremarkable. Other findings: Image quality is moderately degraded by artifacts. PROCEDURE INFORMATION: Exam: CTA Neck Without And With Contrast Exam date and time: 12/05/2023 1:03 PM Age: 73 years old Clinical indication: /pre op cabg; Doppler shows high grade lesion of internal rca and occlusion of L internal carotid artery TECHNIQUE: Imaging protocol: Computed tomographic angiography of the neck without and with contrast. Exam focused on the cervical segments of the vasculature. 3D rendering (Not supervised by radiologist): MIP and/or 3D reconstructed images were created by the technologist. Radiation optimization: All CT scans at this facility use at least one of these dose optimization techniques: automated exposure control; mA and/or kV adjustment per patient size (includes targeted exams where dose is matched to clinical indication); or iterative reconstruction. Contrast material: OMNI; Contrast volume: 80 ml; Contrast route: INTRAVENOUS (IV); COMPARISON: CAROTID ARTERY DOPPLER BILAT US 12/04/2023 10:59 PM RADIATION DOSE METRICS: Total DLP (mGy-cm): 743.8 FINDINGS: Right common carotid artery: Atherosclerotic disease of the right common carotid artery with less than 50% stenosis. Right internal carotid artery: No stenosis of the extracranial segment. No dissection or occlusion. Right external carotid artery: No occlusion or stenosis of the origin. Left common carotid artery: Atherosclerotic disease of the left common carotid artery with less than 50% stenosis. Left internal carotid artery: 55-60% stenosis of the left internal carotid artery origin secondary to predominantly soft atherosclerotic plaque. Occlusion of the left internal carotid artery at its origin. Left external carotid artery: Atherosclerotic disease of the left external carotid artery origin with subjectively moderate stenosis. The vessel remains patent. Right vertebral artery: Atherosclerotic disease of the proximal right vertebral artery with greater than 50% narrowing at the V1-V2 junction. Left vertebral artery: Occlusion of the left vertebral artery at its origin with intermittent small amounts of visualization along its course in the neck likely due to collateral filling. Brachiocephalic artery: Atherosclerotic disease of the brachycephalic trunk with approximately 50% stenosis. Right subclavian artery: Atherosclerotic disease of the right subclavian artery with less than 50% stenosis. Left subclavian artery: Atherosclerotic disease in the proximal left subclavian artery. Streak artifact degrades in, but there appears to be focal high-grade stenosis. This and appears to narrow the lumen by greater than 75%. Aorta: Atherosclerosis of the aorta, without aneursymal dilatation. Soft tissues: Normal. No significant soft tissue swelling. Bones/joints: No acute fracture. Lungs: Respiratory movement degrades evaluation of the lungs. Dependent atelectasis in the lungs. REFERENCES: NASCET CRITERIA. The degree of stenosis in the cervical segment of the internal carotid artery is based on NASCET criteria. Normal is no stenosis. Mild is less than 50% stenosis. Moderate is 50-69% stenosis. Severe is 70% to 99% stenosis. Total occlusion is no detectable patent lumen. IMPRESSION: CTA Head Without And With Contrast, Arteriography 1. Occlusion of the left internal carotid artery to the level of the ophthalmic artery. 2. Multifocal areas of narrowing along the right carotid siphon with at least 50% stenosis. Measurement is difficult in these locations. 3. The intradural left vertebral artery is not visualized proximally. There appears to be a small amount of retrograde filling in the distal portion. 4. 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 5. Mild degree of brain parenchyma volume loss and white matter disease consistent with microangiopathy. CTA Neck Without And With Contrast 1. Occlusion of the left internal carotid artery at its origin. 2. 55-60% stenosis of the left internal carotid artery origin secondary to predominantly soft atherosclerotic plaque. 3. Atherosclerotic disease of the proximal right vertebral artery with greater than 50% narrowing at the V1-V2 junction. 4. Occlusion of the left vertebral artery at its origin with intermittent small amounts of visualization along its course in the neck likely due to collateral filling. 5. Atherosclerotic disease of the brachycephalic trunk with approximately 50% stenosis. 6. Atherosclerotic disease in the proximal left subclavian artery. Streak artifact degrades in, but there appears to be focal high-grade stenosis. This and appears to narrow the lumen by greater than 75%. Lorne Quijano MD On 12/06/2023 07:56:44; [id number] [facility] 2023-12-04 23:00:00 PROCEDURE INFORMATIO N: Exam: US Duplex Lower Extremity Veins, Bilateral Exam date and time: 12/04/2023 11:15 PM Age: 73 years old Clinical indication: /vein mapping pre op cabg TECHNIQUE: Imaging protocol: Real-time duplex ultrasound of the bilateral extremities with 2-D esposito scale, color Doppler flow and spectral waveform analysis including responses to compression and other maneuvers (when performed) with image documentation. Complete exam focused on the lower extremity veins. COMPARISON: No relevant prior studies available. FINDINGS: Mild superficial soft tissue edema. Right lower extremity: Great saphenous vein is patent as demonstrated by compressibility and color flow. Left lower extremity: Greater saphenous vein is are patent as demonstrated by compressibility and color flow. VEIN MAPPING: RIGHT GREATER SAPHENOUS VEIN: Proximal thigh 5.8 mm Mid thigh 3.2 mm Distal thigh 3.0 mm Knee 3.2 mm Proximal calf 2.4 mm Mid calf 1.1 mm Distal calf 1.2 mm Ankle 2.7 mm LEFT GREATER SAPHENOUS VEIN: Proximal thigh 6.3 mm Mid thigh 4.6 mm Distal thigh 1.4 mm Knee 1.4 mm Proximal calf 1.3 mm Mid calf 1.6 mm Distal calf 1.3 mm Ankle 1.8 mm IMPRESSION: 1. No sonographic evidence of superficial thrombophlebitis within the bilateral lower extremities. 2. Bilateral lower extremity vein mapping, with measurements as above. Davey Mclean MD On 12/05/2023 08:36:42; [id number] [facility] 2023-12-04 22:30:00 PROCEDURE INFORMATIO N: Exam: US Duplex Bilateral Extracranial Arteries; Complete; Carotid Arteries Exam date and time: 12/04/2023 10:59 PM Age: 73 years old Clinical indication: /pre op cabg TECHNIQUE: Imaging protocol: Real-time duplex ultrasound scan of the bilateral extracranial arteries combining esposito scale, color Doppler and spectral waveform analysis with image documentation. Complete exam. Exam focused on the carotid arteries. COMPARISON: No relevant prior studies available. FINDINGS: Right common carotid artery: Plaque formation. No occlusion or stenosis. Waveforms are normal. Right internal carotid artery: Plaque formation with elevation of the peak systolic velocity to 394 cm/second. Right ICA/CCA ratio: 2.9. Right external carotid artery: No stenosis in the origin. Right vertebral artery: Unremarkable. Antegrade flow. Left common carotid artery: Plaque formation. No occlusion or stenosis. Waveforms are normal. Left internal carotid artery: There is occlusion of the left internal carotid artery. Left external carotid artery: No stenosis in the origin. Left vertebral artery: Unremarkable. Antegrade flow. IMPRESSION: Findings suggesting greater than 90% stenosis of the right ICA. Left ICA occlusion. REFERENCES: The degree of internal carotid artery stenosis is based on criteria defined by the [employer]AC Vascular Testing criteria. Normal is no stenosis. Mild is less than 50% stenosis. Moderate is 50-69% stenosis. Severe is greater than 69% stenosis to near occlusion. Near occlusion is a markedly narrowed lumen. Total occlusion is no detectable patent lumen. John Narayanan MD On 12/05/2023 07:19:49; [id number] [facility]
[2025-01-09] MEDS ORDERED: ONDANSETRON 4 MG/2 ML VIAL ONE (02:34)
[2025-01-09] MEDS ORDERED: MECLIZINE HCL 12.5 MG TAB ONE (02:34)
[2025-01-09] MEDS ORDERED: NA CHLORIDE 0.9% 1,000 ML ONE (02:35)
[2025-01-09 02:52] LABS: Absolute Basophils 0.1 K/uL (0-0.5); Absolute Eosinophils 0.3 K/uL (0-0.5); Absolute Lymphocytes (CBC) 1.3 K/uL (0.7-4.9); Absolute Monocytes 0.6 K/uL (0.1-1.3); Absolute Neutrophil 5.5 K/uL (1.8-8.0); Basophils % 0.7 % (0-1.3); Eosinophils % 3.8 % (0-4.4); Hematocrit 34.8 % (36.0-45.0); Hemoglobin 11.5 g/dL (12.0-15.0); Lymphocytes % 16.5 % (15.3-44.8); MCH 27.6 pg (27.0-35.0); MCV 83.7 fL (80-100); Monocytes % 7.4 % (3.3-12.3); Neutrophils % 71.6 % (41.7-73.7); Platelets 268 thou/uL (152-406); RBC Red Blood Cell Count 4.16 M/uL (3.86-4.86); Red Cell Distribution Width 14.9 % (12.1-15.2)
[2025-01-09 03:10] LABS: Albumin 3.2 g/dL (3.4-5.0); Albumin/Globulin Ratio 0.9 (1.1-1.8); Anion Gap 10.5 mEq/L (5.0-15.0); Bilirubin Total 0.4 mg/dL (0.2-1.0); Globulin 3.6 g/dL (2.3-3.5); Potassium 3.5 mEq/L (3.5-5.1); Protein, Total 6.8 g/dL (6.4-8.2)
[2025-01-09 04:41] LABS: Barbiturates NEGATIVE (NEGATIVE); Benzodiazepines NEGATIVE (NEGATIVE); Cocaine NEGATIVE (NEGATIVE); METHAMPHETAM NEGATIVE (NEGATIVE); Methadone NEGATIVE (NEGATIVE); Opiates NEGATIVE (NEGATIVE); Phencyclidine NEGATIVE (NEGATIVE); THC Cannibis POSITIVE (NEGATIVE)
--- NOTE | 2025-01-09 07:03 | EDPHYS ---
Physician Documentation [facility] Name: Griselda Barksdale Age: 74 yrs Sex: Female : 1950 Arrival Date: 01/09/2025 Time: 02:22 Bed 8 Private MD: ED Physician Estrada Hickey HPI: 01/09 02:29 This 74 yrs old Female presents to ER via Unassigned with complaints of sp4 Nausea/Vomiting, Weakness. 01/10 00:56 74-year-old female presents with nausea vomiting generalized weakness. . Patient sp4 reports she has consumed cannabis Gummies just prior to arrival and started feeling unwell developed nausea vomiting and developed visual hallucination.. Historical: - Allergies: 01/09 02:30 No Known Allergies; bm8 - Home Meds: 02:30 Unable to obtain [Active]; bm8 - PMHx: 02:30 DVT Left leg; Hypertension; Hyperlipidemia; Hypothyroidism; Myocardial infarction; bm8 - PSHx: 02:30 CABG (on); Ligation of fallopian tube; bm8 - Immunization history:: Adult Immunizations up to date. - Infectious Disease History:: Denies. - Social history:: Smoking status: Patient reports the use of cigarette tobacco products. - Family history:: not pertinent. ROS: 01/10 00:56 Constitutional: Negative for fever, chills, and weight loss, positive nausea vomiting sp4 positive generalized weakness positive visual hallucinations All other systems are negative, Exam: 00:56 Constitutional: This is a well developed, well nourished patient who is awake, alert, sp4 and in no acute distress. Head/Face: Normocephalic, atraumatic. Eyes: Pupils equal round and reactive to light, extra-ocular motions intact. Lids and lashes normal. Conjunctiva and sclera are not injected. Cornea within normal limits. Periorbital areas with no swelling, redness, or edema. ENT: Nares patent. No nasal discharge, no septal abnormalities noted. Tympanic membranes are normal and external auditory canals are clear. Oropharynx with no redness, swelling, or masses, exudates, or evidence of obstruction, uvula midline. Mucous membranes moist. Neck: Trachea midline, no thyromegaly or masses palpated, and no cervical lymphadenopathy. Supple, full range of motion without nuchal rigidity, or vertebral point tenderness. Chest/axilla: Normal chest wall appearance and motion. Nontender with no deformity. No lesions are appreciated. Cardiovascular: Regular rate and rhythm with a normal S1 and S2. No gallops, murmurs, or rubs. Normal PMI, no JVD. No pulse deficits. Respiratory: Lungs have equal breath sounds bilaterally, clear to auscultation and percussion. No rales, rhonchi or wheezes noted. No increased work of breathing, no retractions or nasal flaring. Abdomen/GI: Soft, with normal bowel sounds. No distension or tympany. No guarding or rebound. No evidence of tenderness throughout. Back: No spinal tenderness. No costovertebral tenderness. Skin: Warm, dry with normal turgor. Normal color with no rashes, no lesions, and no evidence of cellulitis. MS/ Extremity: Pulses equal, no cyanosis. Neurovascular intact. Full, normal range of motion. Neuro: Awake and alert, GCS 15, oriented to person, place, time, and situation. Cranial nerves II-XII grossly intact. Motor strength 5/5 in all extremities. Sensory grossly intact. Psych: Awake, alert, with orientation to person, place and time. Behavior, mood, and affect are within normal limits Vital Signs: 01/09 02:28 BP 150 / 54; Pulse 93; Resp 17; Temp 97.7; Pulse Ox 91% ; Weight 72.57 kg; Height 5 ft. bm8 7 in. ; Pain 0/10; 03:58 BP 168 / 78; Pulse 99; Resp 18; Pulse Ox 97% on R/A; km10 05:30 BP 115 / 55; Pulse 73; Resp 18; Temp 97.9; Pulse Ox 97% ; Pain 0/10; bm8 06:18 BP 157 / 86; Pulse 77; Resp 16; Pulse Ox 97% on R/A; km10 02:28 Body Mass Index 25.06 (72.57 kg, 170.18 cm) bm8 02:28 Pain Scale: Adult bm8 05:30 Pain Scale: Adult bm8 [place] Coma Score: 05:30 Eye Response: to voice(3). Motor Response: obeys commands(6). Verbal Response: bm8 oriented(5). Total: 14. 01/10 00:56 Eye Response: spontaneous(4). Motor Response: obeys commands(6). Verbal Response: sp4 oriented(5). Total: 15. MDM: 01/09 03:15 Medical Screening Exam initiated sp4 01/10 00:58 Differential diagnosis: Nonspecific abd pain, gastritis, viral gastroenteritis, sp4 gastroenteritis. Data reviewed: vital signs, nurses notes, EMS record, old medical records, lab test result(s). Consideration of Admission/Observation Escalation of care including admission/observation considered. ED course: Patient has improved by the morning time. Cannabis intoxication has resolved. Patient advised to discontinue use of cannabis.. 01/09 02:28 Order name: CBC with Diff; Complete Time: 07:00 sp4 01/09 02:28 Order name: CMP; Complete Time: 07:00 [facility] 01/09 02:28 Order name: Urine Drug Screen; Complete Time: 07:00 4 01/09 02:28 Order name: IV Saline Lock; Complete Time: 02:41 sp4 01/09 02:28 Order name: Labs collected and sent; Complete Time: 02:41 sp4 Administered Medications: 01/09 02:41 Drug: Meclizine PO 50 mg PO once Route: PO; km10 04:42 Follow up: Response: No adverse reaction bm8 02:41 Drug: NS 0.9% IV 1000 ml IV at 1 bolus Per protocol; to be given as a bolus over 60 km10 minutes Route: IV; Rate: 1 bolus; Site: right wrist; 04:42 Follow up: Response: No adverse reaction; IV Status: Completed infusion bm8 02:41 Drug: Ondansetron IVP 8 mg IVP once; over 2 minutes {Note: partial given, patient 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 sp4 Disposition Summary: 01/09/25 07:03 Discharge Ordered Notes: Location: Home sp4 Problem: new sp4 Symptoms: have improved sp4 Condition: Stable sp4 Diagnosis - Acute cannabis intoxication, acute visual hallucinations, elevated blood pressure sp4 Followup: sp4 - With: Pavan Hernandez MD - When: 7 - 10 days - Reason: Recheck today's complaints Discharge Instructions: - Discharge Summary Sheet sp4 - Cannabis Use Disorder sp4 Forms: - Patient Portal Instructions sp4 Signatures: Dispatcher [employer] Estrada Cano MD MD sp4 Pedro Arora RN RN bm8 Rosaura Johnson RN RN km10
--- NOTE | 2025-01-09 07:03 | ER ---
Nurse's Notes [facility] Name: Griselda Barksdale Age: 74 yrs Sex: Female : 1950 Arrival Date: 01/09/2025 Time: 02:22 Bed 8 Private MD: Diagnosis: Acute cannabis intoxication, acute visual hallucinations, elevated blood pressure Presentation: 01/09 02:28 Chief complaint: Patient states: I took a half a thc gummy with melatonin and its tb4 making me really dizzy. 02:28 Coronavirus screen: At this time, the client does not indicate any symptoms associated bm8 with coronavirus-19. Ebola Screen: Patient negative for fever greater than or equal to 101.5 degrees Fahrenheit, and additional compatible Ebola Virus Disease symptoms Patient denies exposure to infectious person. Patient denies travel to an Ebola-affected area in the 21 days before illness onset. No symptoms or risks identified at this time. Initial Sepsis Screen: Does the patient meet any 2 criteria? No. Patient's initial sepsis screen is negative. Does the patient have a suspected source of infection? No. Patient's initial sepsis screen is negative. Risk Assessment: Do you want to hurt yourself or someone else? Patient reports no desire to harm self or others. Onset of symptoms was January 08, 2025 at 20:00. 02:28 Method Of Arrival: EMS: [facility] bm8 02:28 Acuity: FILEMON 3 bm8 02:31 Care prior to arrival: Medication(s) given: zofran 4 mg, IV initiated. 20 GA, in the bm8 right forearm, Glucose check: 157. Triage Assessment: 02:30 General: Appears in no apparent distress. comfortable, Behavior is calm, cooperative, bm8 appropriate for age. Pain: Denies pain. EENT: No deficits noted. No signs and/or symptoms were reported regarding the EENT system. Neuro: No deficits noted. Level of Consciousness is awake, alert, obeys commands, Oriented to person, place, time, situation, Appropriate for age. Cardiovascular: Denies chest pain, Heart tones S1 S2 present Capillary refill < 3 seconds in bilateral fingers. Respiratory: Airway is patent Respiratory effort is even, unlabored, Respiratory pattern is regular, symmetrical, Breath sounds are clear bilaterally. GI: Abdomen is flat, Reports nausea. : No signs and/or symptoms were reported regarding the genitourinary system. Derm: No signs and/or symptoms reported regarding the dermatologic system. Musculoskeletal: No signs and/or symptoms reported regarding the musculoskeletal system. Historical: - Allergies: 02:30 No Known Allergies; bm8 - Home Meds: 02:30 Unable to obtain [Active]; bm8 - PMHx: 02:30 DVT Left leg; Hypertension; Hyperlipidemia; Hypothyroidism; Myocardial infarction; bm8 - PSHx: 02:30 CABG (on); Ligation of fallopian tube; bm8 - Immunization history:: Adult Immunizations up to date. - Infectious Disease History:: Denies. - Social history:: Smoking status: Patient reports the use of cigarette tobacco products. - Family history:: not pertinent. Screenin:07 [facility] ED Fall Risk Assessment (Adult) History of falling in the last 3 months, km10 including since admission No falls in past 3 months (0 pts) Confusion or Disorientation Yes (5 pts) Intoxicated or Sedated Yes (3 pts) Impaired Gait Yes (1 pt) Mobility Assist Device Used No (0 pt) Altered Elimination Yes (1 pt) Score/Fall Risk Level 3 or more points = High Risk Oriented to surroundings, Maintained a safe environment, Educated pt \T\ family on fall prevention, incl call for assistance when getting out of bed, Provided non-skid footwear, Hourly rounding (assess needs \T\ fall precautionary measures) done. Abuse screen: Denies threats or abuse. Denies injuries from another. Nutritional screening: No deficits noted. Tuberculosis screening: No symptoms or risk factors identified. 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 km10 02:30 General: Appears Behavior is cooperative. Neuro: Level of Consciousness is awake, obeys km10 commands, Oriented to person, place, time, situation, Reports weakness since taking half a gummy IT TECHNICIAN. 03:08 Musculoskeletal: Swelling present in left leg. km10 04:17 Reassessment: Patient appears in no apparent distress at this time. Patient and/or km10 family updated on plan of care and expected duration. Pain level reassessed. 05:30 Reassessment: Patient appears in no apparent distress at this time. Patient and/or bm8 family updated on plan of care and expected duration. Pain level reassessed. Patient denies pain at this time. Patient states feeling better. Patient states symptoms have improved. GI: Patient currently denies nausea, pain, vomiting. 06:19 Reassessment: Patient appears in no apparent distress at this time. No changes from km10 previously documented assessment. Vital Signs: 02:28 BP 150 / 54; Pulse 93; Resp 17; Temp 97.7; Pulse Ox 91% ; Weight 72.57 kg; Height 5 ft. bm8 7 in. ; Pain 0/10; 03:58 BP 168 / 78; Pulse 99; Resp 18; Pulse Ox 97% on R/A; km10 05:30 BP 115 / 55; Pulse 73; Resp 18; Temp 97.9; Pulse Ox 97% ; Pain 0/10; bm8 06:18 BP 157 / 86; Pulse 77; Resp 16; Pulse Ox 97% on R/A; km10 02:28 Body Mass Index 25.06 (72.57 kg, 170.18 cm) bm8 02:28 Pain Scale: Adult bm8 05:30 Pain Scale: Adult bm8 [place] Coma Score: 05:30 Eye Response: to voice(3). Motor Response: obeys commands(6). Verbal Response: bm8 oriented(5). Total: 14. 27 00:56 Eye Response: spontaneous(4). Motor Response: obeys commands(6). Verbal Response: sp4 oriented(5). Total: 15. ED Course: 01/09 02:26 Patient arrived in ED. [email or web address] 02:28 Estrada Hickey MD is Attending Physician. sp4 02:28 Pedro Arora, RN is Primary Nurse. bm8 02:30 Triage completed. bm8 02:30 Arm band placed on right wrist. bm8 02:33 Maintain EMS IV. Dressing intact. Good blood return noted. Site clean \T\ dry. Gauge \T\ bm 8 site: 20g rfa. Flushed with 10 mL NS. 03:07 Patient has correct armband on for positive identification. Placed in gown. Bed in low km10 position. Call light in reach. Side rails up X2. Provided Education on: plan of care. Door closed. Noise minimized. Lights dimmed. Warm blanket given. Pillow given. 05:30 No provider procedures requiring assistance completed. Patient maintains SpO2 bm8 saturation greater than 95% on room air. 07:03 Pavan Hernandez MD is Referral Physician. sp4 07:52 IV discontinued, intact, bleeding controlled, No redness/swelling at site. ld1 Administered Medications: 02:41 Drug: Meclizine PO 50 mg PO once Route: PO; km10 04:42 Follow up: Response: No adverse reaction bm8 02:41 Drug: NS 0.9% IV 1000 ml IV at 1 bolus Per protocol; to be given as a bolus over 60 km10 minutes Route: IV; Rate: 1 bolus; Site: right wrist; 04:42 Follow up: Response: No adverse reaction; IV Status: Completed infusion bm8 02:41 Drug: Ondansetron IVP 8 mg IVP once; over 2 minutes {Note: partial given, patient km10 received 4 mg IV IT TECHNICIAN with EMS .} Route: IVP; Site: right wrist; 04:42 Follow up: Response: No adverse reaction bm8 Medication: 05:30 VIS not applicable for this client. bm8 Outcome: 07:03 Discharge ordered by . sp4 07:52 Discharged to home ambulatory, ld1 07:52 Condition: stable 07:52 Discharge instructions given to patient, Instructed on discharge instructions, follow up and referral plans. Demonstrated understanding of instructions, follow-up care, 07:53 Patient left the ED. ld1 Signatures: Hiwot Lei RN RN ld1 Elizabeth Sidhu Sergey, MD MD sp4 Pedro Arora, RN RN bm8 Rosaura Johnson RN RN km10 Laura Manuel RN RN tb4
[2025-01-09 08:30] VITALS: O2SAT 97
[2025-01-09 08:31] VITALS: TEMP 97.9
[2025-01-09 08:33] VITALS: BP 157/86
--- NOTE | 2025-01-11 11:16 | EKG ---
Test Date: 2025-01-09 Test Time: 02:39:47 Web Marketing Manager: SHARI MEASUREMENT RESULTS: Intervals: Rate: 91 AL: 132 QRSD: 96 QT: 368 QTc: 452 [place]: P: 43 AL: 132 QRS: 76 T: 76 INTERPRETIVE STATEMENTS: Sinus rhythm with premature atrial complexes Otherwise normal ECG Compared to ECG 10/04/2024 16:18:27 Atrial premature complex(es) now present Electronically Signed On 01-11-25 11:13:46 CDT by Brady Palacios
== END 2025-01-09 07:53 | disposition home or self-care (01) ==
LOC: ER 02:22
DX: F12.929 Cannabis use, unspecified with intoxication, unspecified (principal); I10 Essential (primary) hypertension; Z95.1 Presence of aortocoronary bypass graft; Z72.0 Tobacco use
CPT/HCPCS: 96361; 93005; 85025; 36415; 80053; 80307; 96374; 99284; J8597; J2405; J7030